=== PATIENT | female | born 1940 ===

== ENCOUNTER 2016-09-29 08:19 | Day surgery (SDC) | payer MEDICARE, OTHER ==
[2016-09-22 09:27] VITALS: BMI 32.7
[2016-09-22 12:06] VITALS: RESP 18
[2016-09-29] MEDS ORDERED: Acetylcholine 1% Opth System Pack IO ONE ×2 (08:24→11:49)
[2016-09-29] MEDS ORDERED: Lidocaine 1% 20 MG/2 ML PF AMP ONE (08:25)
[2016-09-29] MEDS ORDERED: EPINEPHrine 1 mg/ml (1:1000) Inj ONE (08:25)
[2016-09-29] MEDS ORDERED: Chondroitin/Hyaluronate Opth Syringe KIT (0.55 ml-0.5 ml) IO ONE ×2 (08:26→11:45)
[2016-09-29] MEDS ORDERED: Povidone Iodine 5% Opht SOLUTION ONE (08:26)
[2016-09-29] MEDS ORDERED: Flurbiprofen 0.3% Opht SOLN OD SCH (09:00)
[2016-09-29] MEDS ORDERED: Phenylephrine 2.5% Opht Soln OD ONE (09:00)
[2016-09-29] MEDS ORDERED: Tropicamide 1% Opht 150 DROP/15 ML RIGHTEYE SCH (09:00)
[2016-09-29] MEDS ORDERED: Lactated Ringer's 1,000 ML IV ONE (09:18)
[2016-09-29] MEDS ORDERED: Flurbiprofen 0.3% Opht SOLN OU ONE (09:18)
[2016-09-29] MEDS ORDERED: Tropicamide 1% Opht 150 DROP/15 ML RIGHTEYE ONE (09:20)
[2016-09-29] MEDS ORDERED: Midazolam 2 MG/2 ML VIAL ONE (11:25)
[2016-09-29] MEDS ORDERED: Tetracaine 0.5% Ophth 2 ML BOTTLE OD ONE (11:39)
[2016-09-29] MEDS ORDERED: Povidone Iodine 5% Opht SOLUTION OD ONE (11:41)
[2016-09-29] MEDS ORDERED: Lidocaine 1% 20 MG/2 ML PF AMP EP ONE (11:43)
[2016-09-29] MEDS ORDERED: BSS 15 ML SOL IR ONE (11:50)
[2016-09-29] MEDS ORDERED: Pilocarpine 1% Opht Soln OD ONE (11:51)
[2016-09-29] MEDS ORDERED: Maxitrol Opht Susp OD ONE (11:53)
[2016-09-29 13:25] VITALS: BP 144/68; PULSE 78; TEMP 97.4; O2SAT 97
--- NOTE | 2016-10-09 09:02 | OP ---
SURGEON: TIANA HAMMOND MD ANESTHESIOLOGIST: BINH JC MD ANESTHETIC: LOCAL / IV SEDATION PREOPERATIVE DIAGNOSIS: CATARACT RIGHT EYE. POSTOPERATIVE DIAGNOSIS: CATARACT RIGHT EYE. OPERATION: CLEAR CORNEAL PHACOEMULSIFICATION WITH LENS IMPLANT RIGHT EYE. PREPARATION AND PROCEDURE: After the patient was prepped and draped in the usual manner for sterile ophthalmic surgery, local IV sedation was administered ; eye seals were applied to the upper and lower lid margins and an adult wire lid speculum was placed within the lids. Under microsurgical control, a two- step clear corneal incision was made into the anterior chamber. The initial incision was perpendicular to the corneal plane. The second incision with the keratome was placed at a 45-degree angle to the first incision. One cc of one percent Xylocaine MPF was instilled into the anterior chamber to achieve proper intraocular anesthesia. At this time, the Viscoelastic was injected into the anterior chamber for protection of the endothelium and for maintenance of the chamber depth. A 360-degree continuous curvilinear capsulorrhexis was performed using a pre-bent 25-gauge needle. Hydrodissection and hydrodelineation were performed using a Schmidt cannula and balanced salt solution. Utilizing the tip of the Schmidt cannula, the nucleus was rotated freely within the capsular bag. A standard one-handed phacoemulsification was utilized at this time for sculpting and rotating of the nucleus. The nucleus was fragmented in its entirety and aspirated without any consequence. A standard I&A was carried out for the residual cortical material. No residual material was noted within the capsular bag. The posterior capsule was noted to be clear. Additional Viscoelastic was injected into the capsular bag in preparation for lens implantation. After this has been satisfactorily achieved the intraocular lens injected through the corneal incision into the capsular bag. The intraocular lens was manipulated until it was properly oriented and the Viscoelastic was evacuated from the capsular bag and anterior chamber. The anterior chamber was reformed with balanced salt solution. The corneal incision was irrigated with BSS. The intraocular pressure was found to be within normal limits. This terminated the procedure. The speculum and lid drapes were removed.TobraDex ophthalmic suspension and Pilocarpine 1% drops one drop was applied to the eye. POSTOPERATIVE CONDITION: The patient was brought to the Postanesthesia Recovery area with stable vital signs. DTIANA GARZA MDD
== END 2016-09-29 13:45 | disposition home or self-care (01) ==
LOC: H.OPSURG 08:19
PROVIDERS: ATTEND Ophthalmology
DX: H25.811 Combined forms of age-related cataract, right eye (principal); E78.5 Hyperlipidemia, unspecified; I10 Essential (primary) hypertension; F32.9 Major depressive disorder, single episode, unspecified; R42 Dizziness and giddiness; M81.0 Age-related osteoporosis without current pathological fracture
CPT/HCPCS: 66984; J0171; J2250; J3010; J7120; V2632

== ENCOUNTER 2016-10-20 07:42 | Day surgery (SDC) | payer MEDICARE, OTHER ==
[2016-09-22 09:27] VITALS: BMI 32.7
[2016-10-20] MEDS ORDERED: Acetylcholine 1% Opth System Pack IO ONE ×2 (08:02→12:18)
[2016-10-20] MEDS ORDERED: Lidocaine 1% 20 MG/2 ML PF AMP ONE (08:05)
[2016-10-20] MEDS ORDERED: EPINEPHrine 1 mg/ml (1:1000) Inj ONE (08:05)
[2016-10-20] MEDS ORDERED: Chondroitin/Hyaluronate Opth Syringe KIT (0.55 ml-0.5 ml) IO ONE ×2 (08:07→12:16)
[2016-10-20 08:09] VITALS: RESP 18
[2016-10-20] MEDS ORDERED: Povidone Iodine 5% Opht SOLUTION ONE (08:12)
[2016-10-20] MEDS ORDERED: Phenylephrine 2.5% Opht Soln OS SCH (08:45)
[2016-10-20] MEDS ORDERED: Flurbiprofen 0.3% Opht SOLN OS SCH (08:45)
[2016-10-20] MEDS ORDERED: Tropicamide 1% Opht 150 DROP/15 ML OS SCH (08:45)
[2016-10-20] MEDS ORDERED: ePHEDrine 50 mg/ml Inj ONE (09:21)
[2016-10-20] MEDS ORDERED: Atropine 0.4 mg/ml Inj (1 mL) ONE (09:21)
[2016-10-20] MEDS ORDERED: Midazolam 2 MG/2 ML VIAL ONE ×2 (09:21→11:33)
[2016-10-20] MEDS ORDERED: Flurbiprofen 0.3% Opht SOLN OS ONE (10:00)
[2016-10-20] MEDS ORDERED: Tropicamide 1% Opht 150 DROP/15 ML OS ONE (10:00)
[2016-10-20] MEDS ORDERED: Phenylephrine 2.5% Opht Soln OS ONE (10:00)
[2016-10-20] MEDS ORDERED: BETAXOLOL HCL 0.5% OU ONE (11:55)
[2016-10-20] MEDS ORDERED: Lactated Ringer's 1,000 ML IV ONE (11:55)
[2016-10-20] MEDS ORDERED: Maxitrol Opht Susp OU ONE (12:16)
[2016-10-20] MEDS ORDERED: Pilocarpine 1% Opht Soln OU ONE (12:18)
[2016-10-20 13:23] VITALS: O2SAT 99
[2016-10-20 13:55] VITALS: BP 142/67; PULSE 72; TEMP 98.1
--- NOTE | 2016-10-21 11:06 | OP ---
DATE: 10/20/2016 SURGEON: TIANA HAMMOND MD ANESTHESIOLOGIST: GLORIA MATUTE MD ANESTHETIC: DEEP SEDATION PREOPERATIVE DIAGNOSIS: CATARACT LEFT EYE. POSTOPERATIVE DIAGNOSIS: CATARACT LEFT EYE. OPERATION: CLEAR CORNEAL PHACOEMULSIFICATION WITH LENS IMPLANT LEFT EYE. PREPARATION AND PROCEDURE: After the patient was prepped and draped in the usual manner for sterile ophthalmic surgery, local IV sedation was administered ; eye seals were applied to the upper and lower lid margins and an adult wire lid speculum was placed within the lids. Under microsurgical control, a two- step clear corneal incision was made into the anterior chamber. The initial incision was perpendicular to the corneal plane. The second incision with the keratome was placed at a 45-degree angle to the first incision. One cc of one percent Xylocaine MPF was instilled into the anterior chamber to achieve proper intraocular anesthesia. At this time, the Viscoelastic was injected into the anterior chamber for protection of the endothelium and for maintenance of the chamber depth. A 360-degree continuous curvilinear capsulorrhexis was performed using a pre-bent 25-gauge needle. Hydrodissection and hydrodelineation were performed using a Schmidt cannula and balanced salt solution. Utilizing the tip of the Schmidt cannula, the nucleus was rotated freely within the capsular bag. A standard one-handed phacoemulsification was utilized at this time for sculpting and rotating of the nucleus. The nucleus was fragmented in its entirety and aspirated without any consequence. A standard I&A was carried out for the residual cortical material. No residual material was noted within the capsular bag. The posterior capsule was noted to be clear. Additional Viscoelastic was injected into the capsular bag in preparation for lens implantation. After this has been satisfactorily achieved the intraocular lens injected through the corneal incision into the capsular bag. The intraocular lens was manipulated until it was properly oriented and the Viscoelastic was evacuated from the capsular bag and anterior chamber. The anterior chamber was reformed with balanced salt solution. The corneal incision was irrigated with BSS. The intraocular pressure was found to be within normal limits. This terminated the procedure. The speculum and lid drapes were removed. TobraDex ophthalmic suspension and Pilocarpine 1% drops one drop was applied to the eye. POSTOPERATIVE CONDITION: The patient was brought to the Postanesthesia Recovery area with stable vital signs. TIANA ZHAO
== END 2016-10-20 14:00 | disposition home or self-care (01) ==
LOC: H.OPSURG 07:42
PROVIDERS: ATTEND Ophthalmology
DX: H25.812 Combined forms of age-related cataract, left eye (principal); I10 Essential (primary) hypertension; I35.0 Nonrheumatic aortic (valve) stenosis
CPT/HCPCS: 66984; J0171; J0461; J2250; J3010; J7120; V2632

== ENCOUNTER 2016-10-30 09:11 | Emergency (ER) | payer MEDICARE, OTHER ==
[2016-10-30 09:15] VITALS: TEMP 98.9; BMI 31.6
--- NOTE | 2016-10-30 09:42 | ED PDOC ---
HPI: Head Injury Time Seen by Provider: 10/30/16 09:16 Chief Complaint (Nursing): Trauma Chief Complaint (Provider): I fell on way to [employer] History Per: Patient, Family History/Exam Limitations: no limitations Injury Occurred (Timing): Hours Ago: (<1) Onset/Duration Of Symptoms: Sudden Onset Patient States: Fell Striking Head Severity: Moderate Loss Of Consciousness: Unsure Additional Complaint(s): 75yo female states tripped and fell on way to [employer] this morning. Fertile dazed after, unsure if LOC. Denies focal weakness, neck pain or nausea. Denies hip or back pain. Has chronic Left knee pain, no new pain. Takes ASA 81mg daily, no other blood thinners per pt or daughter. Past Medical History Reviewed: Historical Data, Nursing Documentation, Vital Signs Vital Signs: Last Vital Signs Temp 98.9 F 10/30/16 09:14 Pulse 77 10/30/16 09:14 Resp 19 10/30/16 09:14 BP 146/93 H 10/30/16 09:14 Pulse Ox 96 10/30/16 09:14 - Medical History PMH: Arthritis, Dementia, Depression, Gastritis, HTN, Hypercholesterolemia, Osteoporosis Denies: Chronic Kidney Disease - Surgical History Surgical History: Cholecystectomy - Family History Family History: States: Unknown Family Hx - Living Arrangements Living Arrangements: Alone (homemaker) - Social History Current smoker - smoking cessation education provided: No - Home Medications Home Medications: Ambulatory Orders Medication Instructions Recorded Calcium Carbonate [Caltrate] 600 mg PO DAILY 09/18/15 Docusate [Colace] 100 mg PO DAILY 09/18/15 Ferrous Sulfate [Ferosul] 325 mg PO DAILY 09/18/15 Lisinopril [Zestril] 20 mg PO DAILY 09/18/15 Memantine HCl [Namenda Xr] 1 cap PO DAILY 09/18/15 Multivitamin/Iron/Folic Acid 1 tab PO DAILY 09/18/15 [Centrum Complete Multivit Tab] NIFEdipine ER [Procardia XL] 90 mg PO DAILY 09/18/15 Omeprazole [Prilosec] 20 mg PO DAILY 09/18/15 Zolpidem Tartrate [Ambien] 5 mg PO HS 09/18/15 Ondansetron ODT [Zofran ODT] 4 mg PO Q8 PRN #12 odt 10/06/15 Aspirin [Ecotrin] 81 mg PO DAILY 11/21/15 Oxycodone HCl/Acetaminophen 5 - 325 mg PO Q4 PRN 11/21/15 [Percocet 5-325 mg Tablet] Meclizine [Meclizine*] 25 mg PO Q6 PRN #20 tab 12/01/15 Alendronate [Fosamax] 70 mg PO ONCE 09/29/16 Citalopram Hydrobromide [Celexa] 20 mg PO DAILY 09/29/16 Loratadine [Allerclear] 10 mg PO DAILY 09/29/16 Potassium Chloride [K-Dur 20 mEq 20 meq PO DAILY 09/29/16 ER Tab] traMADol [Ultram] 50 mg PO TID PRN #12 tab 10/30/16 - Allergies Allergies/Adverse Reactions: Allergies Allergy/AdvReac Type Severity Reaction Status Date / Time No Known Allergies Allergy Verified 11/08/15 10:12 Review of Systems ROS Statement: Except As Marked, All Systems Reviewed And Found Negative Constitutional: Negative for: Fever, Chills Cardiovascular: Positive for: Light Headedness. Negative for: Chest Pain, Palpitations Respiratory: Negative for: Cough, Shortness of Breath Gastrointestinal: Negative for: Nausea, Vomiting Genitourinary Female: Negative for: Dysuria, Frequency Musculoskeletal: Negative for: Neck Pain Skin: Negative for: Rash, Lesions, Jaundice Neurological: Positive for: Dizziness. Negative for: Weakness, Numbness Physical Exam - Reviewed Nursing Documentation Reviewed: Yes Vital Signs Reviewed: Yes - Physical Exam Appears: Positive for: Well, Non-toxic, No Acute Distress Head Exam: Positive for: ATRAUMATIC, NORMAL INSPECTION, NORMOCEPHALIC Skin: Positive for: Normal Color, Warm, DRY Eye Exam: Positive for: EOMI, Normal appearance, PERRL ENT: Positive for: Other (L facial contusion periorbital, no lacerations, + tender maxilofacial left) Neck: Positive for: Normal, Painless ROM Cardiovascular/Chest: Positive for: Regular Rate, Rhythm Respiratory: Positive for: CNT, Normal Breath Sounds Gastrointestinal/Abdominal: Positive for: Normal Exam, Bowel Sounds, Soft Back: Positive for: Normal Inspection Extremity: Positive for: Normal ROM Neurologic/Psych: Positive for: Alert, Oriented - ECG O2 Sat by Pulse Oximetry: 96 Medical Decision Making Medical Decision Making: Workup initiated for fall with head and facial injury. She is ambulating in ED and no signs hip or pelvis trauma. Accession No. : [id number] Patient Name / ID : WINSOME ROBLES / [id number] Exam Date : 10/30/2016 09:59:01 ( Approved ) Study Comment : Sex / Age : F / 75Y Creator : Hernesto Nayak Dictator : Hernesto Nayak Movie Editor : Environmental Program Manager : Hernesto Nayak Approver2 : Report Date : 10/30/2016 10:29:01 My Comment : PROCEDURE: CT ORBITS WITHOUT CONTRAST. HISTORY: fall/ facial/ orbital trauma COMPARISON: None available. TECHNIQUE: Axial CT images of the orbits were obtained. Coronal and sagittal reformats were generated. Radiation dose: Total exam DLP = 723.78 mGy-cm. This CT exam was performed using one or more of the following dose reduction techniques: Automated exposure control, adjustment of the mA and/or kV according to patient size, and/or use of iterative reconstruction technique. FINDINGS: RIGHT ORBIT: RIGHT BONY ORBIT: Normal. RIGHT INTRAORBITAL STRUCTURES: Globe: Normal. Extraocular muscles: Normal. Post septal space: Normal. Optic Nerve: Normal. Lacrimal Apparatus: Normal. RIGHT PRESEPTAL SOFT TISSUES: Normal. LEFT ORBIT: LEFT BONY ORBIT: There is acute mildly displaced fracture at the lateral wall of the left orbit LEFT INTRAORBITAL STRUCTURES: Globe: Normal. Extraocular muscles: Normal. Post septal space: Normal Optic Nerve: Normal. . Lacrimal Apparatus: Normal. LEFT PRESEPTAL SOFT TISSUES: Mild preseptal soft tissue swelling seen. OTHER: There is acute mildly displaced fracture at the lateral wall of the left maxillary sinus associated with small bleed in the sinus and air-fluid level. There is acute displaced fracture at the left zygomatic arch. Subcutaneous stranding and soft tissue swelling seen at the left cheek. IMPRESSION: Acute mildly displaced fracture at the lateral wall of the left orbit. No evidence of intra orbital air or hematoma. Acute mildly displaced fracture at the lateral wall of the left maxillary sinus associated with air-fluid level likely due to small hemorrhage. Acute displaced fracture at the left zygomatic arch. Mild soft tissue swelling and subcutaneous stranding seen at the left cheek / anterior to maxillary sinus. Mild left periorbital soft tissue swelling. Discussed w Dr Martinez FS office, will see her early in week, CD disc of images given to bring to [facility]. Instructed may need surgery. Results d/w daughter also. Pain medicine given. Disposition - Clinical Impression Clinical Impression: Multiple facial fractures, Head injury - Disposition Referrals: Tamiko Martinez DMD [Staff Provider] - Disposition Time: 12:30 Condition: STABLE Additional Instructions: See OMFS specialist in next 2-4 days for followup. You may need surgery for this injury. Take medication for pain as directed. Use caution for risk of subsequent falls. Return to ER for any worse or new symptoms, pain, change in vision, or any concern. Prescriptions: traMADol [Ultram] 50 mg PO TID PRN #12 tab PRN Reason: Pain, Moderate (4-7) Instructions: Facial Fracture (ED), Head Injury (ED) Forms: [employer] (Ukrainian) Print Language: CZECH
--- NOTE | 2016-10-30 10:18 | CT ---
PROCEDURE: CT HEAD WITHOUT CONTRAST. HISTORY: r/o ICH COMPARISON: Comparison is made to the previous study dated 12/01/2015 TECHNIQUE: Axial computed tomography images were obtained through the head/brain without intravenous contrast. Radiation dose: Total exam DLP = 782.25 mGy-cm. This CT exam was performed using one or more of the following dose reduction techniques: Automated exposure control, adjustment of the mA and/or kV according to patient size, and/or use of iterative reconstruction technique. FINDINGS: HEMORRHAGE: No intracranial hemorrhage. BRAIN: No mass effect or edema. No atrophy or chronic microvascular ischemic changes. VENTRICLES: Unremarkable. No hydrocephalus. CALVARIUM: Unremarkable. PARANASAL SINUSES: Partially visualized left maxillary sinus demonstrate air-fluid level. There is acute mildly displaced fracture at the lateral wall of the left maxillary sinus. There is also suspicious for fracture at the lateral wall of the left orbit. MASTOID AIR CELLS: Unremarkable as visualized. No inflammatory changes. OTHER FINDINGS: Partially imaged low left zygomatic arch demonstrate acute displaced fracture. IMPRESSION: No evidence of acute intracranial hemorrhage intracranial collection mass effect or midline shift. Acute fracture at the left maxillary sinus lateral wall of the left orbit and left zygomatic arch partially imaged in this study.
--- NOTE | 2016-10-30 10:30 | CT ---
PROCEDURE: CT ORBITS WITHOUT CONTRAST. HISTORY: fall/ facial/ orbital trauma COMPARISON: None available. TECHNIQUE: Axial CT images of the orbits were obtained. Coronal and sagittal reformats were generated. Radiation dose: Total exam DLP = 723.78 mGy-cm. This CT exam was performed using one or more of the following dose reduction techniques: Automated exposure control, adjustment of the mA and/or kV according to patient size, and/or use of iterative reconstruction technique. FINDINGS: RIGHT ORBIT: RIGHT BONY ORBIT: Normal. RIGHT INTRAORBITAL STRUCTURES: Globe: Normal. Extraocular muscles: Normal. Post septal space: Normal. Optic Nerve: Normal. Lacrimal Apparatus: Normal. RIGHT PRESEPTAL SOFT TISSUES: Normal. LEFT ORBIT: LEFT BONY ORBIT: There is acute mildly displaced fracture at the lateral wall of the left orbit LEFT INTRAORBITAL STRUCTURES: Globe: Normal. Extraocular muscles: Normal. Post septal space: Normal Optic Nerve: Normal. . Lacrimal Apparatus: Normal. LEFT PRESEPTAL SOFT TISSUES: Mild preseptal soft tissue swelling seen. OTHER: There is acute mildly displaced fracture at the lateral wall of the left maxillary sinus associated with small bleed in the sinus and air-fluid level. There is acute displaced fracture at the left zygomatic arch. Subcutaneous stranding and soft tissue swelling seen at the left cheek. IMPRESSION: Acute mildly displaced fracture at the lateral wall of the left orbit. No evidence of intra orbital air or hematoma. Acute mildly displaced fracture at the lateral wall of the left maxillary sinus associated with air-fluid level likely due to small hemorrhage. Acute displaced fracture at the left zygomatic arch. Mild soft tissue swelling and subcutaneous stranding seen at the left cheek / anterior to maxillary sinus. Mild left periorbital soft tissue swelling.
--- NOTE | 2016-10-30 10:39 | CT ---
PROCEDURE: CT Cervical Spine without contrast HISTORY: <trauma r/o fx> COMPARISON: None available. TECHNIQUE: Axial computed tomography images were obtained of the cervical spine without the use of intravenous contrast. Coronal and sagittal reformatted images were created and reviewed. Radiation dose: Total exam DLP = 583.85 mGy-cm. This CT exam was performed using one or more of the following dose reduction techniques: Automated exposure control, adjustment of the mA and/or kV according to patient size, and/or use of iterative reconstruction technique. FINDINGS: VERTEBRAE: No fracture. Normal alignment. No destructive bony lesion. DISCS/SPINAL CANAL/NEURAL FORAMINA: [id number] spondylosis seen. Mild narrowing of the intervertebral disc is space at lower cervical spine P PARASPINAL SOFT TISSUES: Unremarkable. OTHER FINDINGS: None. IMPRESSION: No evidence of acute fracture or subluxation. [id number] spondylosis.
--- NOTE | 2016-10-30 12:03 | CARD ---
APPROVED REPORT EKG Measurement Heart [id number] <Conclusion> Normal sinus rhythm Normal ECG
[2016-10-30 14:42] VITALS: BP 136/82; PULSE 81; RESP 16; O2SAT 100
== END 2016-10-30 14:40 | disposition home or self-care (01) ==
LOC: H.ER 09:11
DX: S02.81XA Fracture of other specified skull and facial bones, right side, initial encounter for closed fracture (principal); S09.90XA Unspecified injury of head, initial encounter; W19.XXXA Unspecified fall, initial encounter; Y92.480 Sidewalk as the place of occurrence of the external cause; F03.90 Unspecified dementia, unspecified severity, without behavioral disturbance, psychotic disturbance, mood disturbance, and anxiety

== ENCOUNTER 2017-01-17 22:46 | Inpatient (IN) | payer MEDICARE, OTHER ==
[2017-01-17 22:46] VITALS: BMI 31.6
--- NOTE | 2017-01-18 00:01 | ED PDOC ---
HPI: General Adult Time Seen by Provider: 01/17/17 23:16 Chief Complaint (Nursing): Dizziness/Lightheaded History Per: Patient, Family (daughter) Additional Complaint(s): Pt. states earlier today at approximately 2240 pt. was standing up cooking when she suddenly felt dizzy causing her to fall down in a sitting position. Pt. states as she fell down she struck the L side of her head onto a wooden shelf. Pt. states she did not lose consciousness. Daughter brought her into ED as she is concerned as this is pt.'s 3rd fall in the past 3 months. Also states that pt. does have a hx of dizziness and does take medications for it. Denies LOC, N/ V, numbness, tingling, hip pain, pelvic pain, chest pain, palpitations, other injury. Past Medical History Reviewed: Historical Data, Nursing Documentation, Vital Signs Vital Signs: Last Vital Signs Temp 98.0 F 01/17/17 22:49 Pulse 61 01/18/17 01:51 Resp 20 01/17/17 22:49 BP 144/82 01/17/17 22:49 Pulse Ox 99 01/18/17 01:51 - Medical History PMH: Anxiety, Arthritis, Dementia, Depression, Gastritis, HTN, Hypercholesterolemia, Osteoporosis, Rheumatoid Arthritis Denies: Chronic Kidney Disease - Surgical History Surgical History: Cholecystectomy - Family History Family History: States: No Known Family Hx - Home Medications Home Medications: Ambulatory Orders Medication Instructions Recorded Calcium Carbonate [Caltrate] 600 mg PO DAILY 09/18/15 Docusate [Colace] 100 mg PO DAILY 09/18/15 Ferrous Sulfate [Ferosul] 325 mg PO DAILY 09/18/15 Lisinopril [Zestril] 20 mg PO DAILY 09/18/15 Memantine HCl [Namenda Xr] 1 cap PO DAILY 09/18/15 Multivitamin/Iron/Folic Acid 1 tab PO DAILY 09/18/15 [Centrum Complete Multivit Tab] NIFEdipine ER [Procardia XL] 90 mg PO DAILY 09/18/15 Omeprazole [Prilosec] 20 mg PO DAILY 09/18/15 Zolpidem Tartrate [Ambien] 5 mg PO HS 09/18/15 Ondansetron ODT [Zofran ODT] 4 mg PO Q8 PRN #12 odt 10/06/15 Aspirin [Ecotrin] 81 mg PO DAILY 11/21/15 Oxycodone HCl/Acetaminophen 5 - 325 mg PO Q4 PRN 11/21/15 [Percocet 5-325 mg Tablet] Meclizine [Meclizine*] 25 mg PO Q6 PRN #20 tab 12/01/15 Alendronate [Fosamax] 70 mg PO ONCE 09/29/16 Citalopram Hydrobromide [Celexa] 20 mg PO DAILY 09/29/16 Loratadine [Allerclear] 10 mg PO DAILY 09/29/16 Potassium Chloride [K-Dur 20 mEq 20 meq PO DAILY 09/29/16 ER Tab] traMADol [Ultram] 50 mg PO TID PRN #12 tab 10/30/16 - Allergies Allergies/Adverse Reactions: Allergies Allergy/AdvReac Type Severity Reaction Status Date / Time No Known Allergies Allergy Verified 11/08/15 10:12 Review of Systems ROS Statement: Except As Marked, All Systems Reviewed And Found Negative Musculoskeletal: Positive for: Back Pain Neurological: Positive for: Dizziness Physical Exam - Reviewed Nursing Documentation Reviewed: Yes Vital Signs Reviewed: Yes - Physical Exam Appears: Positive for: Well, Non-toxic, No Acute Distress Head Exam: Positive for: NORMAL INSPECTION, NORMOCEPHALIC. Negative for: ATRAUMATIC Skin: Positive for: Normal Color, Warm. Negative for: Rash Eye Exam: Positive for: EOMI, Normal appearance, PERRL ENT: Positive for: Normal ENT Inspection, TM Is/Are (no hemotympanum b/l) Neck: Positive for: Normal, Painless ROM Cardiovascular/Chest: Positive for: Regular Rate, Rhythm Respiratory: Positive for: CNT, Normal Breath Sounds Gastrointestinal/Abdominal: Positive for: Normal Exam, Bowel Sounds, Soft. Negative for: Tenderness Back: Positive for: Normal Inspection, Muscle Spasm (b/l paralumbar tenderness) . Negative for: L CVA Tenderness, R CVA Tenderness, Vertebral Tenderness Extremity: Positive for: Normal ROM, Other (no hip/pelvic tenderness or deformity) Neurologic/Psych: Positive for: Alert, Oriented, Gait (steady). Negative for: Aphasia, Facial Droop - Laboratory Results Result Diagrams: 01/18/17 01:01 01/18/17 01:01 - ECG ECG: Positive for: Interpreted By Me ECG Rhythm: Positive for: Sinus Rhythm. Negative for: ST/T Changes Rate: 61 O2 Sat by Pulse Oximetry: 99 - Progress ED Course And Treament: Labs ordered. EKG ordered. Antivert 50mg PO ordered. Case d/w Dr. Regna who recommends that pt. stay for 23 hr observation due to frequent falls. CT head w/o contrast: negatve. Case d/w Dr. Scruggs and arrangements made for 23 hr observation. Medical Decision Making Medical Decision Making: CT HEAD FINDINGS Brain: Mild atrophy. No intracranial hemorrhage. No mass. Minimal decreased attenuation within periventricular white matter. No edema. Ventricles: No hydrocephalus. Bones/joints: No acute fracture. Chronic fracture LEFT zygoma, lateral wall of LEFT orbit, lateral wall of LEFT maxillary sinus. Soft tissues: Unremarkable. Sinuses: No acute sinusitis. Mastoid air cells: No mastoid effusion. Orbits: Unremarkable as visualized. IMPRESSION: 1. No intracranial hemorrhage. 2. Nonspecific white matter changes. 3. Incidental/non-acute findings are described above. Scribe Attestation: Documented by Vesta Huerta acting as a scribe for Evens Dinh PA-C. MD Scribe Attestation: All medical record entries made by the Scribe were at my direction and personally dictated by me. I have reviewed the chart and agree that the record accurately reflects my personal performance of the history, physical exam, medical decision making, and the department course for this patient. I have also personally directed, reviewed, and agree with the discharge instructions and disposition. Disposition - Clinical Impression Clinical Impression: Dizziness, Frequent falls - Patient ED Disposition Is Patient to be Admitted: Yes - Disposition Disposition Time: 01:51 Condition: STABLE - Pt Status Changed To: Hospital Disposition Of: Observation
[2017-01-18 01:10] LABS: BASO % 0.5 % (0.0-2.0); EOS # 0.3 K/uL (0.0-0.7); EOS % 3.2 % (0.0-4.0); HEMATOCRIT 38.5 % (34.0-47.0); LYMPH % 33.6 % (20.0-40.0); MEAN CELL VOLUME 86.7 fl (81.0-99.0); MEAN CORPUSCULAR HEMOGLOBIN 28.1 pg (27.0-31.0); MEAN CORPUSCULAR HGB CONC 32.4 g/dL (33.0-37.0); MEAN PLATELET VOLUME 8.7 fl (7.2-11.7); MONO # 0.8 K/uL (0.0-0.8); MONO % 8.6 % (0.0-10.0); NEUT # 4.8 K/uL (1.8-7.0); NEUT % 54.1 % (50.0-75.0); RED CELL DISTRIBUTION WIDTH 14.8 % (11.5-14.5); WHITE BLOOD COUNT 8.9 K/uL (4.8-10.8)
[2017-01-18 01:22] LABS: ALB/GLOB RATIO 1.3 (1.0-2.1); ALKALINE PHOSPHATASE 110 U/L (38-126); ALT/SGPT 37 U/L (9-52); AST/SGOT 27 U/L (14-36); BILIRUBIN,TOTAL 0.4 mg/dl (0.2-1.3); BLOOD UREA NITROGEN 15 mg/dl (7-17); CALCIUM 9.5 mg/dL (8.4-10.2); CARBON DIOXIDE 25 mmol/L (22-30); CHLORIDE 105 mmol/L (98-107); GFR AFRICAN-AMERICAN > 60; GLUCOSE,RANDOM 94 mg/dL (65-105); POTASSIUM 3.8 MMOL/L (3.6-5.0); SODIUM 141 mmol/l (132-148); TOTAL PROTEIN 7.1 G/DL (6.3-8.2)
--- NOTE | 2017-01-18 01:23 | CT ---
EXAM: CT Head Without Intravenous Contrast CLINICAL HISTORY: 76 years old, female; Injury or trauma; Fall; Initial encounter; Concussion / head injury; Without loss of consciousness; Injury date: 01/17/2017 TECHNIQUE: Axial computed tomography images of the head/brain without intravenous contrast. All CT scans at this facility use one or more dose reduction techniques, viz.: automated exposure control; ma/kV adjustment per patient size (including targeted exams where dose is matched to indication; i.e. head); or iterative reconstruction technique. Coronal and sagittal reformatted images were created and reviewed. COMPARISON: CT - HEAD W/O CONTRAST 08/31/2015 10:01:47 PM FINDINGS: Brain: Mild atrophy. No intracranial hemorrhage. No mass. Minimal decreased attenuation within periventricular white matter. No edema. Ventricles: No hydrocephalus. Bones/joints: No acute fracture. Chronic fracture LEFT zygoma, lateral wall of LEFT orbit, lateral wall of LEFT maxillary sinus. Soft tissues: Unremarkable. Sinuses: No acute sinusitis. Mastoid air cells: No mastoid effusion. Orbits: Unremarkable as visualized. IMPRESSION: 1. No intracranial hemorrhage. 2. Nonspecific white matter changes. 3. Incidental/non-acute findings are described above.
[2017-01-18] MEDS ORDERED: cefTRIAXone (Rocephin) 1 gm Inj ONE (04:02)
--- NOTE | 2017-01-18 04:10 | CP.PCM.HP ---
History of Present Illness - History of Present Illness History of Present Illness: CC: dizziness HPI: 76 y/o woman w/ pmh of HTN, vertigo, chronic gastritis, depression, dementia (not specified, not on medications), aortic stenosis (last echo 07/2014 ) presents to ED for dizziness and fall. The patient was at home when she became dizzy and fell on her rear end and then the back of her head. The grandson witnessed fall which occurred at 20:45. The patient reports that the only preceding symptom before fall was dizziness, patient denied headache, chest pain, SOB, abdominal pain, or nausea. The daughter is at bedside and reports that this is the 4th fall in the past 6 months. The first occurred in similar fashion but patient did not go to ED. The second occurred which resulted in a left maxillary and left orbital mildly displaced fractures. The third occurred in 11/2016 and the patient did not go to ED as well. The patient does complain of tinnitus and ambulates with a cane. The patient has a home health aide that comes Wednesday-Wednesday for 2.5 hours daily. The patient is tolerating PO and has no other complaints. ROS: 12 points assessed and negative unless otherwise specified in HPI ED course: - CBC w/ diff: 8.9>12.5/38.5<178 - CMP: 141/3.8, 105/25, 15/0.8, glucose 94 - troponin I: <0.0120 - UA: - Urine CX: - EKG: NSR, no ST elevation/depression, no widened QRS, no peaked T waves, no prolonged segments - CT head w/o: no acute intracranial hemorrhage - lumbar spine XR - meclizine 50 mg PO once - ceftriaxone 1 gm IV stat PMH: HTN, depression, osteoporosis, vertigo, chronic gastritis, dementia (not specified, not on medications), aortic stenosis, iron deficiency anemia allergies: NKDA PSHx: right knee replacement 2013, lap cholecystectomy 2014, left hernia repair 2014, bilateral cataract surgery 11/2016 SOC: lives alone, has ORDER FILLER M-F for 2.5 hours/day, daughter works at [employer] but takes care of patient on weekends Present on Admission - Present on Admission Any Indicators Present on Admission: No Review of Systems - Review of Systems All systems: reviewed and no additional remarkable complaints except - Constitutional Constitutional: Frequent Falls, Weakness. absent: Fever, Headache - EENT Eyes: absent: Blurred Vision, Change in Vision Ears: Tinnitus, Dizziness. absent: Decreased Hearing - Cardiovascular Cardiovascular: absent: Chest Pain, Rapid Heart Rate - Respiratory Respiratory: absent: Dyspnea, Wheezing - Gastrointestinal Gastrointestinal: absent: Abdominal Pain, Nausea, Vomiting - Genitourinary Genitourinary: absent: Dysuria - Neurological Neurological: Memory Loss, Syncope, Vertigo, Weakness. absent: Abnormal Gait, Abnormal Hearing, Abnormal Movements, Headaches, Loss of Vision Past Patient History - Infectious Disease Hx of Infectious Diseases: None - Past Medical History & Family History Past Medical History?: Yes - Past Social History Smoking Status: Never Smoked - CARDIAC Hx Hypercholesterolemia: Yes Hx Hypertension: Yes - PULMONARY Hx Respiratory Disorders: No - NEUROLOGICAL Hx Dementia: Yes - HEENT Hx HEENT Problems: Yes Hx Cataracts: Yes (RIGHT EYE) - RENAL Hx Chronic Kidney Disease: No - ENDOCRINE/METABOLIC Hx Endocrine Disorders: No - HEMATOLOGICAL/ONCOLOGICAL Hx Blood Disorders: No Hx Blood Transfusions: No - INTEGUMENTARY Hx Dermatological Problems: No - MUSCULOSKELETAL/RHEUMATOLOGICAL Hx Arthritis: Yes Hx Osteoporosis: Yes Hx Rheumatoid Arthritis: Yes - GASTROINTESTINAL Hx Gastritis: Yes - GENITOURINARY/GYNECOLOGICAL Hx Genitourinary Disorders: No - PSYCHIATRIC Hx Anxiety: Yes Hx Depression: Yes - SURGICAL HISTORY Hx Cholecystectomy: Yes - ANESTHESIA Hx Anesthesia: Yes Hx Anesthesia Reactions: No Hx Malignant Hyperthermia: No Meds Allergies/Adverse Reactions: Allergies Allergy/AdvReac Type Severity Reaction Status Date / Time No Known Allergies Allergy Verified 11/08/15 10:12 Physical Exam - Constitutional Appears: No Acute Distress - Head Exam Head Exam: NORMOCEPHALIC - Eye Exam Eye Exam: EOMI, PERRL Pupil Exam: NORMAL ACCOMODATION, PERRL - ENT Exam ENT Exam: Mucous Membranes Moist - Neck Exam Neck exam: Positive for: Full Rom, Normal Inspection. Negative for: Tenderness - Respiratory Exam Respiratory Exam: Clear to Auscultation Bilateral, NORMAL BREATHING PATTERN. absent: Decreased Breath Sounds, Wheezes, Respiratory Distress, Stridor - Cardiovascular Exam Cardiovascular Exam: REGULAR RHYTHM, Systolic Murmur. absent: Bradycardia, Tachycardia - GI/Abdominal Exam GI & Abdominal Exam: Normal Bowel Sounds, Soft. absent: Distended, Tenderness - Extremities Exam Extremities exam: Negative for: calf tenderness, tenderness - Back Exam Back exam: absent: paraspinal tenderness, vertebral tenderness - Neurological Exam Neurological exam: Alert, CN II-XII Intact, Oriented x3 Additional comments: trinity-halpike negative - Skin Skin Exam: Dry, Intact, Warm Results - Vital Signs Recent Vital Signs: Last Vital Signs Temp 97.8 F 01/18/17 03:38 Pulse 65 01/18/17 03:38 Resp 15 01/18/17 03:38 BP 136/77 01/18/17 03:38 Pulse Ox 100 01/18/17 03:38 - Labs Result Diagrams: 01/18/17 01:01 01/18/17 01:01 Assessment & Plan - Assessment and Plan (Free Text) Assessment: 76 y/o woman w/ pmh of HTN, vertigo, chronic gastritis, depression, dementia ( not specified, not on medications), aortic stenosis (last echo 07/2014) presents to ED for dizziness and fall Plan: 1. syncope w/ fall - admit to TELE - patient reported lightheadedness prior to fall - patient has multiple fall history - given meclizine 50 mg in ED - CBC, CMP, EKG, head CT all WNL - results pending for LS XR - follow up repeat CBC, CMP, folate, vit B12, vit D 25 OH, TSH, x2 troponin, EKG - follow up echo - follow up carotid U/S - orthostatic BP ordered - neuro check Q4 ordered - wax specialist ordered - IV saline lock ordered - PT screen, eval, treat ordered - consider cardiology consult - consider neurology consult 2. UTI - Patient found to have UTI in ED - follow up urine Cx - started on ceftriaxone 1 gm IV 3. HTN - controlled w/ lisinopril 20 mg and nifedipine 90 mg - given lisinopril 20 mg PO - heart healthy diet ordered 4. Depression - controlled w/ citalopram 20 mg 5. Iron deficiency anemia - feosol 325 mg PO daily - colace 100 mg PO stool softener 6. GERD - on omeprazole 20 mg PO - given protonix 20 mg PO 7. Hypokalemia - no EKG changes - on K-dur 20 mEq daily 8. Prophylaxis - ASA 81 mg PO - lovenox 20 mg SC daily Decision To Admit - Pt Status Changed To: Hospital Disposition Of: Observation - . Bed Request Type: Telemetry Admitting Physician: Katheryn Aly
[2017-01-18 05:49] LABS: RBC URINE 4 /hpf (0-3); URINE BACTERIA RARE (<OCC); URINE BILIRUBIN NEGATIVE (NEGATIVE); URINE BLOOD MODERATE (NEGATIVE); URINE COLOR AMBER (YELLOW); URINE GLUCOSE (UA) NEG (Normal); URINE KETONE NEGATIVE (NEGATIVE); URINE LEUKOCYTE ESTERASE TRACE Leu/uL (Negative); URINE PROTEIN 30 mg/dL (NEGATIVE); URINE UROBILINOGEN 0.2-1.0 mg/dL (0.2-1.0); WBC URINE 14 /hpf (0-5)
[2017-01-18 07:27] LABS: ALB/GLOB RATIO 1.2 (1.0-2.1); ALKALINE PHOSPHATASE 88 U/L (38-126); ALT/SGPT 33 U/L (9-52); AST/SGOT 26 U/L (14-36); BILIRUBIN,TOTAL 0.3 mg/dl (0.2-1.3); BLOOD UREA NITROGEN 13 mg/dl (7-17); CALCIUM 9.1 mg/dL (8.4-10.2); CARBON DIOXIDE 28 mmol/L (22-30); CHLORIDE 106 mmol/L (98-107); GFR AFRICAN-AMERICAN > 60; GLUCOSE,RANDOM 92 mg/dL (65-105); POTASSIUM 3.8 MMOL/L (3.6-5.0); SODIUM 140 mmol/l (132-148); TOTAL PROTEIN 6.3 G/DL (6.3-8.2)
[2017-01-18 07:50] LABS: BASO % 0.5 % (0.0-2.0); EOS # 0.2 K/uL (0.0-0.7); EOS % 3.5 % (0.0-4.0); HEMATOCRIT 35.5 % (34.0-47.0); LYMPH # 2.4 K/uL (1.0-4.3); MEAN CELL VOLUME 86.6 fl (81.0-99.0); MEAN CORPUSCULAR HEMOGLOBIN 28.8 pg (27.0-31.0); MEAN CORPUSCULAR HGB CONC 33.3 g/dL (33.0-37.0); MEAN PLATELET VOLUME 8.7 fl (7.2-11.7); MONO # 0.7 K/uL (0.0-0.8); MONO % 9.8 % (0.0-10.0); NEUT # 3.6 K/uL (1.8-7.0); NEUT % 51.2 % (50.0-75.0); NRBC % 0.1 % (0.0-0.0); RED CELL DISTRIBUTION WIDTH 14.7 % (11.5-14.5)
[2017-01-18 08:08] LABS: THYROID STIMULATING HORMONE 3.76 mIU/ML (0.46-4.68)
[2017-01-18] MEDS: Enoxaparin 40 mg Syringe SC SCH (08:41)
[2017-01-18] MEDS: Potassium Chloride 20 mEq ER Tab PO SCH (08:41)
[2017-01-18] MEDS: Pantoprazole 20 mg EC Tab PO SCH (08:41)
--- NOTE | 2017-01-18 11:14 | RAD ---
PROCEDURE: Radiographs of the Lumbar Spine. HISTORY: Trauma COMPARISON: No prior. FINDINGS: BONES: There are anterior wedge compression deformities of the T12 and to a lesser degree L1 segments felt to be chronic. . There also appears to be deformity of the superior L2 endplate. Mild anterior subluxation L5 over S1 felt to be present as well however due to patient scoliotic deformity evaluation somewhat limited. DISC SPACES: Multilevel degenerative spondylosis. Changes include varying degrees of disc space narrowing endplate eburnation and anterolateral as well as small posterior osteophyte formation. Hypertrophic facet joint changes seen throughout the most significant at the L5-S1 level. There is also a dextroscoliosis centered at the L5-S1 and L4-L5 levels. . OTHER FINDINGS: Multiple metallic clips right upper quadrant of the abdomen consistent with prior cholecystectomy. Moderate amount of stool seen throughout the colon consistent with fecal retention/ constipation. Note made of calcified atherosclerotic plaque along the abdominal aorta and iliac arteries. IMPRESSION: Chronic appearing anterior wedge deformities of the T12 and to a lesser degree L1 segments. . Superior endplate deformity at L2 segment Multilevel degenerative spondylosis with dextroscoliosis as above if further evaluation is required, consider followup CT scan.
--- NOTE | 2017-01-18 14:12 | US ---
PROCEDURE: Duplex ultrasound of the carotid and vertebral arteries. HISTORY: Syncope w/ multiple falls COMPARISON: Comparison made with prior study 09/26/2012 TECHNIQUE: Grayscale and duplex Doppler evaluation of the cervical carotid and vertebral arteries were performed. The common carotid, carotid bifurcations and cervical ICA and proximal ECA were evaluated. The vertebral arteries were evaluated for gross patency and direction. . FINDINGS: RIGHT CAROTID ARTERIES: There is mild intimal thickening in the right common carotid artery which extends into the proximal internal carotid artery. Maximal right ICA velocity = 70.3 cm/S Maximal right CCA velocity = 69.0 cm/S ICA/CCA Ratio: 1.1 LEFT CAROTID ARTERIES: There is mild intimal thickening left common carotid artery which also extends into the proximal left internal carotid artery. Maximal left ICA velocity = 67.7 cm/S Maximal left CCA velocity = 69.0 cm/S ICA/CCA Ratio: 1.0 VERTEBRAL ARTERIES: Right Vertebral Artery: Patent. Antegrade flow. Left Vertebral Artery: Patent. Antegrade flow. OTHER FINDINGS: Incidental note made of the bilateral thyroid nodules. Followup thyroid ultrasound could be performed further evaluation. IMPRESSION: Minimal intimal thickening both common carotid arteries and bifurcations without open hemodynamically significant stenosis. Bilateral thyroid nodules. Consider dedicated on the thyroid ultrasound for further evaluation.
--- NOTE | 2017-01-18 15:15 | CP.PCM.PN ---
Subjective - Date & Time of Evaluation Date of Evaluation: 01/18/17 Time of Evaluation: 20:00 - Subjective Subjective: S:76 y/o F evaluated at bedside this morning. Pt reports feeling well but complains of lower back pain and bilateral hip pain after falling down yesterday and landing on floor with her gluteal area. Pt eating well, no urinary complaints. Pt ambulates with help of a cane which is her baseline. Pt reports chronic daily dizziness. Pt denies fever, headache, paresthesia, anesthesia or limb weakness. O: VS WNL. Neuro: CN grossly intact except for CN II and IX (not examined), strength on bilateral arms 5/5, walks with help of a cane, SILT B/L on upper and lower extremities. Pt AAOx3, knows her complete name, where she is, in what city, where she lives, where she lived before staying in [place], when she came from [facility] and todays date. A/P 76 y/o woman with a PMHx of HTN, vertigo, chronic gastritis, depression, and aortic stenosis admitted due to dizziness and fall. 1.Syncope/Fall -Troponin serum level <0.0120 at 01:01 and a 12:20 today. -Carotid artery US showed minimal intimal thickening of both carotid arteries. -Neurology consult ordered. -F/U Neurology recommendations. 2.Thyroid Nodule. -Carotid artery US showed bilateral thyroid nodules. Recommended dedicated Thyroid US examination. -Will evaluate and manage as outpatient Objective - Vital Signs/Intake and Output Vital Signs (last 24 hours): Temp Pulse Resp BP Pulse Ox 98.2 F 66 18 132/79 98 01/18/17 12:00 01/18/17 12:00 01/18/17 12:00 01/18/17 12:00 01/18/17 12:00
--- NOTE | 2017-01-18 16:46 | CP.PCM.CON ---
History of Present Illness - History of Present Illness History of Present Illness: Mrs. Michelle is a pleasant 76-year-old woman with a past medical history of HTN , vertigo, chronic gastritis, depression, dementia, aortic stenosis, who had a witnessed fall without loss of consciousness yesterday. She states that prior to the fall she felt dizzy and nauseous. There was no evidence of shaking movements, urinary/bowel incontinence or significant injury. This is the 4th fall she has had in the last 4 months. Today, she denied dizziness, vertigo, light-headedness, nausea, visual changes, headache, weakness or sensory changes. She did not have difficulty with ambulation. Review of Systems - Review of Systems All systems: reviewed and no additional remarkable complaints except Past Patient History - Infectious Disease Hx of Infectious Diseases: None - Past Medical History & Family History Past Medical History?: Yes - Past Social History Smoking Status: Never Smoked - CARDIAC Hx Cardiac Disorders: Yes Hx Hypercholesterolemia: Yes Hx Hypertension: Yes - PULMONARY Hx Respiratory Disorders: No - NEUROLOGICAL Hx Neurological Disorder: Yes Hx Dementia: Yes Hx Dizziness: Yes - HEENT Hx HEENT Problems: Yes Hx Cataracts: Yes (RIGHT EYE) - RENAL Hx Chronic Kidney Disease: No - ENDOCRINE/METABOLIC Hx Endocrine Disorders: No - HEMATOLOGICAL/ONCOLOGICAL Hx Blood Disorders: No Hx Blood Transfusions: No - INTEGUMENTARY Hx Dermatological Problems: No - MUSCULOSKELETAL/RHEUMATOLOGICAL Hx Musculoskeletal Disorders: Yes Hx Arthritis: Yes Hx Falls: Yes Hx Osteoporosis: Yes Hx Rheumatoid Arthritis: Yes - GASTROINTESTINAL Hx Gastrointestinal Disorders: Yes Hx Gastritis: Yes - GENITOURINARY/GYNECOLOGICAL Hx Genitourinary Disorders: No - PSYCHIATRIC Hx Psychophysiologic Disorder: Yes Hx Anxiety: Yes Hx Depression: Yes Hx Substance Use: No - SURGICAL HISTORY Hx Surgeries: Yes Hx Cholecystectomy: Yes Hx Joint Replacement: Yes (Right Knee Sx) - ANESTHESIA Hx Anesthesia: Yes Hx Anesthesia Reactions: No Hx Malignant Hyperthermia: No Meds Allergies/Adverse Reactions: Allergies Allergy/AdvReac Type Severity Reaction Status Date / Time No Known Allergies Allergy Verified 11/08/15 10:12 - Medications Medications: Current Medications Acetaminophen (Tylenol 325mg Tab) 650 mg PO Q6 PRN PRN Reason: Pain, Mild (1-3) Last Admin: 01/18/17 16:20 Dose: 650 mg Aspirin (Aspirin Chewable) 81 mg PO DAILY [facility] Last Admin: 01/18/17 08:41 Dose: 81 mg Citalopram Hydrobromide (Celexa) 20 mg PO DAILY [facility] Last Admin: 01/18/17 08:41 Dose: 20 mg Docusate Sodium (Colace) 100 mg PO DAILY [facility] Last Admin: 01/18/17 08:41 Dose: 100 mg Enoxaparin Sodium (Lovenox) 40 mg SC DAILY [facility] PRN Reason: Protocol Last Admin: 01/18/17 08:41 Dose: 40 mg Ferrous Sulfate (Feosol) 325 mg PO DAILY [facility] Last Admin: 01/18/17 08:41 Dose: 325 mg Home Med (Memantine Hcl [Namenda Xr]) 1 cap PO DAILY [facility] Lisinopril (Zestril) 20 mg PO DAILY [facility] Last Admin: 01/18/17 08:41 Dose: 20 mg Pantoprazole Sodium (Protonix Ec Tab) 20 mg PO DAILY [facility] Last Admin: 01/18/17 08:41 Dose: 20 mg Potassium Chloride (K-Dur 20 Meq Er Tab) 20 meq PO DAILY [facility] Last Admin: 01/18/17 08:41 Dose: 20 meq Physical Exam - Constitutional Appears: Well - Head Exam Head Exam: ATRAUMATIC, NORMAL INSPECTION, NORMOCEPHALIC - Eye Exam Eye Exam: EOMI, Normal appearance, PERRL - ENT Exam ENT Exam: Mucous Membranes Moist, Normal Exam - Neck Exam Neck exam: Positive for: Normal Inspection - Respiratory Exam Respiratory Exam: Clear to Auscultation Bilateral, NORMAL BREATHING PATTERN - Cardiovascular Exam Cardiovascular Exam: REGULAR RHYTHM, +S1, +S2 - GI/Abdominal Exam GI & Abdominal Exam: Normal Bowel Sounds, Soft. absent: Tenderness - Rectal Exam Rectal Exam: Deferred - Extremities Exam Extremities exam: Positive for: normal inspection - Back Exam Back exam: NORMAL INSPECTION - Neurological Exam Neurological exam: Alert, CN II-XII Intact, Normal Gait, Oriented x3, Reflexes Normal - Expanded Neurological Exam Expanded Patient oriented to: person, place, time Cranial nerves: EOM's Intact: Normal, Facial Sensation: Normal, Nystagmus: Abnormal Right Ataxia: No Cerebellar Function: Finger to Nose: Normal Upper motor neuron: Babinski Sign: Normal Sensory exam: Lower Extremity Light Touch: Normal, Lower Extremity Pin Prick: Normal, Upper Extremity Light Touch: Normal, Upper Extremity Pin Prick: Normal Neuro motor strength exam: Left Upper Extremity: 5, Right Upper Extremity: 5, Left Lower Extremity: 5, Right Lower Extremity: 5 DTR: Achilles Tendon Left: 2+, Achilles Tendon Right: 2+, Bicep Left: 2+, Bicep Right: 2+, Brachioradialis Left: 2+, Brachioradialis Right: 2+, Patellar Left: 2 +, Patellar Right: 2+, Tricep Left: 2+, Tricep Right: 2+ - Psychiatric Exam Psychiatric exam: Normal Affect, Normal Mood - Skin Skin Exam: Dry, Intact, Normal Color, Warm Results - Vital Signs Recent Vital Signs: Last Vital Signs Temp 97.6 F 01/18/17 15:33 Pulse 64 01/18/17 15:33 Resp 20 01/18/17 15:33 BP 161/83 H 01/18/17 15:33 Pulse Ox 98 01/18/17 15:33 - Labs Result Diagrams: 01/18/17 06:45 01/18/17 05:30 - Imaging and Cardiology CT scan - head Status: Image reviewed by me, Report reviewed by me (No acute findings. ) Assessment & Plan (1) Dizziness Assessment and Plan: The patient has a history of vertigo. She does have a slight right end gaze nystagmus. This could be benign positional vertigo. However, we should rule out vertebro-basilar insufficiency with a CTA of the head/neck. The remainder of the work-up should be cardiac for neuro-cardiogenic causes. MRI of the brain should also be done to rule out cerebellar or brainstem ischemic changes. Continue aspirin 81 mg daily, and adequate hydration to maintain cerebral perfusion. Perform orthostatics for further evaluation. PT/OT eval. Status: Chronic Priority: Medium
[2017-01-18] MEDS ORDERED: Iodixanol 320 MG/ML 100 ML BOTTLE IV ONE (17:04)
[2017-01-18] MEDS ORDERED: Sodium Chloride 0.9% 50 ML IV ONE (17:04)
[2017-01-18 17:33] LABS: FOLATE > 20.0 ng/mL
--- NOTE | 2017-01-18 17:49 | CT ---
PROCEDURE: CTA of the neck neck and brain dated 01/18/2017 HISTORY: Rule out VBI COMPARISON: The comparison made with noncontrast CT scan brain obtained earlier same day TECHNIQUE: Contiguous helical/transaxial images of the neck were obtained from the level of the skull-base to the superior mediastinum in the arteriographic phase of enhancement. Coronal and sagittal reformats or also generated. IV contrast dose: 75 cc of Visipaque 320 contrast material Radiation Dose - DLP: 1863.75 mGy-cm This CT exam was performed using one or more of the following dose reduction techniques: Automated exposure control, adjustment of the mA and/or kV according to patient size, and/or use of iterative reconstruction technique. FINDINGS: Findings: The aortic arch is well opacified and widely patent. No significant atherosclerotic plaque changes are identified. The origins of the great vessels are also widely patent without significant atherosclerotic plaque occlusion or stenosis. The right and left common carotid arteries, carotid bifurcations and internal carotid arteries are all widely patent as well without occlusion, atherosclerotic plaque or significant stenosis . The distal internal carotid arteries including the petrous, cavernous and supraclinoid segments also widely patent. . . Mild calcified plaque changes seen along both distal cavernous carotid and supraclinoid segments. No evidence of dissection. Both vertebral arteries are also widely patent right-sided which is slightly larger in caliber/more dominant than the left. No evidence of atherosclerotic plaque occlusion or significant stenosis. The basilar artery widely patent. . No evidence of dissection. Major branches of the [place] patent without evidence of significant stenosis. The distal branches of the middle and posterior cerebral arteries are relatively symmetric. A2 segments and distal branches are symmetric. No evidence of large aneurysm nor vascular malformation. The jugular veins are also patent. Multiple small nonspecific bilateral cervical lymph nodes. Minor multilevel facet arthropathy of the cervical spine. Lung apices are clear. The thyroid gland is heterogeneous in appearance part of which is due to crossing streak and beam hardening artifact arising from dense clavicles and shoulder girdles however tiny hypodense nodules are also felt to be present. Consider followup thyroid ultrasound for further evaluation. Impression: The cervical arterial circulation is widely patent without occlusion. No evidence of a atherosclerotic plaque or significant stenosis. Mild partially calcified atherosclerotic plaque seen along the distal cavernous carotid the supraclinoid segments of both internal carotid arteries. Minor asymmetry of the vertebral arteries right-sided which is slightly larger in caliber more dominant than the left side - an anatomic variant. . No evidence of dissection involving the anterior or posterior circulations. Heterogeneous thyroid gland with multiple tiny low attenuation foci. Thyroid ultrasound recommended for further evaluation.
[2017-01-19] MEDS: Enoxaparin 40 mg Syringe SC SCH (08:40)
[2017-01-19] MEDS: Potassium Chloride 20 mEq ER Tab PO SCH (08:41)
[2017-01-19] MEDS: Pantoprazole 20 mg EC Tab PO SCH (08:42)
[2017-01-19] MEDS ORDERED: MEMANTINE HCL PO SCH (09:00)
--- NOTE | 2017-01-19 11:44 | CP.PCM.PN ---
Subjective - Date & Time of Evaluation Date of Evaluation: 01/19/17 Time of Evaluation: 09:00 - Subjective Subjective: 76 y/o F evaluated and examined at bedside. Pt reports feeling well. Pt reports insomnia last night and Benadryl 25 mg PO was provided. Pt eating well, good appetite, NO urinary complaints or change in bowel movement. Pt complains of left sided pain, well-localized under L breast, mild-4/10 intensity and aggravated on palpation. Pt denies fever, headache, dizziness, CP, SOB, dysuria , urinary frequency, hematuria or constipation. - Pt lives alone, but receives phone calls every day from daughters and grand children, reports sleeping from 7-8 hours every night, takes medication for sleeping. Pt loves to watch baseball games on TV. Pt cries very few times when she remembers her mother who several years ago. Pt denies sadness, lack of concentration or anhedonia. Depression screening overall negative. Objective - Vital Signs/Intake and Output Vital Signs (last 24 hours): Temp Pulse Resp BP Pulse Ox 98 F 68 20 149/79 98 01/19/17 08:00 01/19/17 08:41 01/19/17 08:00 01/19/17 08:41 01/19/17 08:00 - Medications Medications: Current Medications Acetaminophen (Tylenol 325mg Tab) 650 mg PO Q6 PRN PRN Reason: Pain, Mild (1-3) Last Admin: 01/19/17 08:39 Dose: 650 mg Aspirin (Aspirin Chewable) 81 mg PO DAILY [facility] Last Admin: 01/19/17 08:42 Dose: 81 mg Citalopram Hydrobromide (Celexa) 20 mg PO DAILY [facility] Last Admin: 01/19/17 08:41 Dose: 20 mg Docusate Sodium (Colace) 100 mg PO DAILY [facility] Last Admin: 01/19/17 08:42 Dose: 100 mg Enoxaparin Sodium (Lovenox) 40 mg SC DAILY [facility] PRN Reason: Protocol Last Admin: 01/19/17 08:40 Dose: 40 mg Ferrous Sulfate (Feosol) 325 mg PO DAILY [facility] Last Admin: 01/19/17 08:41 Dose: 325 mg Home Med (Memantine Hcl [Namenda Xr]) 1 cap PO DAILY [facility] Lisinopril (Zestril) 20 mg PO DAILY [facility] Last Admin: 01/19/17 08:41 Dose: 20 mg Pantoprazole Sodium (Protonix Ec Tab) 20 mg PO DAILY [facility] Last Admin: 01/19/17 08:42 Dose: 20 mg Potassium Chloride (K-Dur 20 Meq Er Tab) 20 meq PO DAILY [facility] Last Admin: 01/19/17 08:41 Dose: 20 meq - Constitutional Appears: Well, Non-toxic, No Acute Distress - Head Exam Head Exam: NORMAL INSPECTION - Eye Exam Eye Exam: EOMI, PERRL Pupil Exam: PERRL - ENT Exam ENT Exam: Mucous Membranes Moist - Neck Exam Neck Exam: Full ROM - Respiratory Exam Respiratory Exam: Clear to Ausculation Bilateral, NORMAL BREATHING PATTERN - Cardiovascular Exam Cardiovascular Exam: REGULAR RHYTHM, RRR - Extremities Exam Extremities Exam: Normal Capillary Refill, Normal Inspection. absent: Joint Swelling, Tenderness - Neurological Exam Neurological Exam: Alert, Altered, Awake, Oriented x3 Assessment and Plan - Assessment and Plan (Free Text) Assessment: 76 y/o woman with a PMHx of HTN, vertigo, chronic gastritis, depression, dementia (not specified, not on medications), aortic stenosis (last echo 07/2014 ) admitted for dizziness and fall. Plan: 1. Dizziness and Fall -Chornic dizziness VS Vertigo. No change on admission. -Troponin neg x3. -EKG and TSH WNL. - XR lumbo-sacral: chronic appearing anterior wedge deformities of the T12 and to a lesser degree L1 segments. Superior endplate deformity at L2 segment. Multilevel degenerative spondylosis with dextroscoliosis. -Carotid artery US showed minimal intimal thickening of both carotid arteries. - Head/Neck CTA: The cervical arterial circulation is widely patent without occlusion. No evidence of atherosclerotic plaque or significant stenosis. Mild partially calcified atherosclerotic plaque seen along the distal cavernous carotid the supraclinoid segment of both internal carotid arteries. Minor symmetry of the vertebral arteries right sided which is slightly larger in caliber more dominant than the left side an anatomic variant. No evidence of dissection involving the anterior or posterior circulations. -Neurology on board. Recommeded MRI of brain. -F/U echocardiogram, Brain MRI and PT evaluation and treatment. 2. UTI - Urinalysis consistent w/ UTI in ED. - Urinary Cx preliminary showed gram neg juan jose growth. - Given Ceftriaxone 1 gm IV - follow up urine Cx final report. 3. HTN - Controlled w/ lisinopril 20 mg and nifedipine 90 mg at Home. - Nifedipinde is being held due to dizziness and potential hypotensive side effect. - Currently on lisinopril 20 mg PO at hospital. - f/u V.S. 4. Depression - controlled w/ Citalopram 20 mg - Depression screening was negative today. 5. Iron deficiency anemia - feosol 325 mg PO daily - colace 100 mg PO stool softener 6. GERD - Currently on Protonix 20 mg PO 7. Hypokalemia - Kdur 10 mg daily. - K+ today: 3.8 WNL. - f/u BMP. 8.Thyroid Nodule. -Carotid artery US showed bilateral thyroid nodules. Recommended dedicated Thyroid US examination. -Head and Neck CTA: Heterogeneous thyroid gland with multiple tiny low attenuation foci. Thyroid US recommended for further evaluation. -Will evaluate and manage as outpatient 9. DVT Prophylaxis - ASA 81 mg PO - lovenox 20 mg SC daily.
--- NOTE | 2017-01-19 14:34 | MRI ---
PROCEDURE: MRI BRAIN WITHOUT CONTRAST HISTORY: r/o cerebellar/brainstem ischemic changes COMPARISON: Head CT without contrast 01/18/2017. TECHNIQUE: Multiplanar, multisequence MR images of the brain were obtained without intravenous contrast enhancement. FINDINGS: HEMORRHAGE: None DWI: No evidence of an acute or early subacute infarction. BRAIN PARENCHYMA: Diffuse cerebral atrophy chronic microangiopathy are reiterated and remain limited in overall appearance. Pericolic pattern is otherwise unremarkable. No mass effect identified. No suspicious extra-axial fluid collection identified. VENTRICLES: Unremarkable. No hydrocephalus. CRANIUM: Unremarkable. ORBITS: Grossly unremarkable. PARANASAL SINUSES/MASTOIDS: Clear VASCULAR SYSTEM: Skull base flow voids intact. OTHER FINDINGS: None. IMPRESSION: Age related neuro degenerative changes are reiterated. No acute intracranial findings as discussed above.
[2017-01-20 06:10] LABS: BLOOD UREA NITROGEN 16 mg/dl (7-17); CALCIUM 9.3 mg/dL (8.4-10.2); CARBON DIOXIDE 28 mmol/L (22-30); CHLORIDE 105 mmol/L (98-107); GFR AFRICAN-AMERICAN > 60; GLUCOSE,RANDOM 91 mg/dL (65-105); POTASSIUM 4.2 MMOL/L (3.6-5.0); SODIUM 140 mmol/l (132-148)
[2017-01-20] MEDS: Enoxaparin 40 mg Syringe SC SCH (09:06)
[2017-01-20] MEDS: Potassium Chloride 20 mEq ER Tab PO SCH (09:07)
[2017-01-20] MEDS: Pantoprazole 20 mg EC Tab PO SCH (09:07)
--- NOTE | 2017-01-20 10:16 | CP.PCM.PN ---
Subjective - Date & Time of Evaluation Date of Evaluation: 01/20/17 Time of Evaluation: 09:00 - Subjective Subjective: 76 y/o F examined at bedside. Pt reports feeling well, eating well, good appetite and NO overnight event. Pt reports she felt dizzy last night before sleeping. Pt denies fever, headache, CP, abdominal pain, N/V/D, dysuria or urinary frequency. Objective - Vital Signs/Intake and Output Vital Signs (last 24 hours): Temp Pulse Resp BP Pulse Ox 98.0 F 64 18 154/70 H 99 01/20/17 08:00 01/20/17 09:06 01/20/17 08:00 01/20/17 09:06 01/20/17 08:00 - Medications Medications: Current Medications Acetaminophen (Tylenol 325mg Tab) 650 mg PO Q6 PRN PRN Reason: Pain, Mild (1-3) Last Admin: 01/19/17 17:19 Dose: 650 mg Aspirin (Aspirin Chewable) 81 mg PO DAILY [facility] Last Admin: 01/20/17 09:07 Dose: 81 mg Citalopram Hydrobromide (Celexa) 20 mg PO DAILY [facility] Last Admin: 01/20/17 09:07 Dose: 20 mg Docusate Sodium (Colace) 100 mg PO DAILY [facility] Last Admin: 01/20/17 09:07 Dose: 100 mg Enoxaparin Sodium (Lovenox) 40 mg SC DAILY [facility] PRN Reason: Protocol Last Admin: 01/20/17 09:06 Dose: 40 mg Ferrous Sulfate (Feosol) 325 mg PO DAILY [facility] Last Admin: 01/20/17 09:07 Dose: 325 mg Home Med (Memantine Hcl [Namenda Xr]) 1 cap PO DAILY [facility] Lisinopril (Zestril) 20 mg PO DAILY [facility] Last Admin: 01/20/17 09:06 Dose: 20 mg Pantoprazole Sodium (Protonix Ec Tab) 20 mg PO DAILY [facility] Last Admin: 01/20/17 09:07 Dose: 20 mg Potassium Chloride (K-Dur 20 Meq Er Tab) 20 meq PO DAILY [facility] Last Admin: 01/20/17 09:07 Dose: 20 meq - Labs Labs: 01/20/17 05:20 - Constitutional Appears: Well, No Acute Distress - Head Exam Head Exam: NORMAL INSPECTION - Eye Exam Eye Exam: EOMI, Normal appearance - ENT Exam ENT Exam: Mucous Membranes Moist - Neck Exam Neck Exam: Full ROM - Respiratory Exam Respiratory Exam: Clear to Ausculation Bilateral, NORMAL BREATHING PATTERN - Cardiovascular Exam Cardiovascular Exam: REGULAR RHYTHM, +S1, +S2 - GI/Abdominal Exam GI & Abdominal Exam: Soft, Normal Bowel Sounds. absent: Guarding, Rigid, Tenderness Assessment and Plan - Assessment and Plan (Free Text) Plan: 76 y/o woman with a PMHx of HTN, vertigo, chronic gastritis, depression, dementia (not specified, not on medications), aortic stenosis (last echo 07/2014 ) admitted for dizziness and fall. 1. Dizziness and Fall - Chornic dizziness VS Vertigo. No change on admission. - Brain MRI showed NO acute intra-cranial process. - Echocardiogram: Normal LV systolic function. Aortic Valve Sclerosis. - Troponin neg x3. - EKG and TSH: WNL. - XR lumbo-sacral: non-alarming with multilevel degenerative spondylosis with dextroscoliosis. - Carotid artery US showed minimal intimal thickening of both carotid arteries. - Head/Neck CTA did NOT report any alarming sign. . - Neurology on board. - Physical therapy recommends therapy 3-5x per week for 1 week and d/c home with services. - f/u Neuro recommendations. 2. UTI - Urinalysis consistent w/ UTI in ED. Given Ceftriaxone 1 gm IV while on ER. - Urinary Cx today showed ESBL growth. - ID consult ordered. - F/u ID recommendations. 3. HTN - Controlled w/ lisinopril 20 mg and nifedipine 90 mg at Home. - Nifedipinde is being held due to dizziness and potential hypotensive side effect. - Currently on lisinopril 20 mg PO at hospital. - f/u V.S. 4. Depression - controlled w/ Citalopram 20 mg - Depression screening was negative today. 5. Iron deficiency anemia - feosol 325 mg PO daily - colace 100 mg PO stool softener 6. GERD - Currently on Protonix 20 mg PO 7. Hypokalemia - Kdur 10 mg daily. - K+ today: 3.8 WNL. - f/u BMP. 8.Thyroid Nodule. -Carotid artery US showed bilateral thyroid nodules. Recommended dedicated Thyroid US examination. -Head and Neck CTA: Heterogeneous thyroid gland with multiple tiny low attenuation foci. Thyroid US recommended for further evaluation. -Will evaluate and manage as outpatient 9. DVT Prophylaxis - ASA 81 mg PO - lovenox 20 mg SC daily.
--- NOTE | 2017-01-20 11:47 | CARD ---
APPROVED REPORT EXAM: Two-dimensional and M-mode echocardiogram with Doppler and color Doppler. Other Information Quality : AverageRhythm : NSR INDICATION Aortic Valve Disease Syncope 2D DIMENSIONS IVSd0.89 (0.7-1.1cm)LVDd3.28 (3.9-5.9cm) LVOT Diameter1.98 (1.8-2.4cm)PWd1.01 (0.7-1.1cm) IVSs0.96 (0.8-1.2cm)LVDs2.53 (2.5-4.0cm) FS (%) 22.7 %PWs1.00 (0.8-1.2cm) M-Mode DIMENSIONS Left Atrium (MM)2.54 (2.5-4.0cm)IVSd1.38 (0.7-1.1cm) Aortic Root3.31 (2.2-3.7cm)LVDd2.23 (4.0-5.6cm) Aortic Cusp Exc.1.76 (1.5-2.0cm)PWd1.19 (0.7-1.1cm) IVSs1.54 cmFS (%) 37 % LVDs1.41 (2.0-3.8cm)PWs1.74 cm Mitral Valve MV E Llknzqea06.9cm/sMV DECEL [id number] A Gjqmkhmb29.5cm/s MV ZFK96luJ/A ratio0.9MVA (PHT)3.45cm2 TDI Lateral E' Peak V4.40cm/sMedial E' Peak V6.68cm/sE/Lateral E'20.9 E/Medial E'13.8 Pulmonary Valve PV Peak Pwnomkzy50.5cm/s LEFT VENTRICLE The left ventricle is normal size. There is normal left ventricular wall thickness. The left ventricular function is normal. The left ventricular ejection fraction is 60% There is normal LV segmental wall motion. The left ventricular diastolic function is normal. No left ventricle thrombus noted on this study. There is no ventricular septal defect visualized. There is no left ventricular aneurysm. There is no mass noted in the left ventricle. RIGHT VENTRICLE The right ventricle is normal size. There is normal right ventricular wall thickness. The right ventricular systolic function is normal. ATRIA The left atrium size is normal. The right atrium size is normal. The interatrial septum is intact with no evidence for an atrial septal defect. AORTIC VALVE The aortic valve is moderately sclerotic. No aortic regurgitation is present. There is no aortic valvular stenosis. There is no aortic valvular vegetation. MITRAL VALVE The mitral valve is normal in structure and function. There is no evidence of mitral valve prolapse. There is no mitral valve stenosis. There is no mitral valve regurgitation noted. TRICUSPID VALVE The tricuspid valve is normal in structure and function. There is no tricuspid valve regurgitation noted. There is no tricuspid valve prolapse or vegetation. There is no tricuspid valve stenosis. PULMONIC VALVE The pulmonary valve is normal in structure and function. There is no pulmonic valvular regurgitation. There is no pulmonic valvular stenosis. GREAT VESSELS The aortic root is normal in size. The ascending aorta is normal in size. The IVC is normal in size and collapses >50% with inspiration. PERICARDIAL EFFUSION The pericardium appears normal. There is no pleural effusion. <Conclusion> Normal LV Systolic Function Aortic Valve Sclerosis
--- NOTE | 2017-01-20 14:35 | CP.PCM.CON ---
History of Present Illness - History of Present Illness History of Present Illness: 76 y/o woman presents to ED for dizziness and fall. The patient was at home when she became dizzy and fell on her rear end and then the back of her head. 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, daughter works at [employer] but takes care of patient on weekends Review of Systems - Constitutional Constitutional: As Per HPI - EENT Eyes: absent: As Per HPI, Blind Spots, Blurred Vision, Change in Vision, Decreased Night Vision, Diplopia, Discharge, Dry Eye, Exophthalmos, Floaters, Irritation, Itchy Eyes, Loss of Peripheral Vision, Pain, Photophobia, Requires Corrective Lenses, Sees Flashes, Spots in Vision, Tunnel Vision, Other Visual Disturbances, Loss of Vision, Other Ears: absent: As Per HPI, Decreased Hearing, Ear Discharge, Ear Pain, Tinnitus, Abnormal Hearing, Disequilibrium, Dizziness, Other Nose/Mouth/Throat: absent: As Per HPI, Epistaxis, Nasal Congestion, Nasal Discharge, Nasal Obstruction, Nasal Trauma, Nose Pain, Post Nasal Drip, Sinus Pain, Sinus Pressure, Bleeding Gums, Change in Voice, Dental Pain, Dry Mouth, Dysphagia, Halitosis, Hoarsness, Lip Swelling, Mouth Lesions, Mouth Pain, Odynophagia, Sore Throat, Throat Swelling, Tongue Swelling, Facial Pain, Neck Pain, Neck Mass, Other - Breasts Breasts: absent: As Per HPI, Change in Shape, Mass, Pain, Nipple Discharge, Nipple Inversion, Skin Changes, Swelling, Other - Cardiovascular Cardiovascular: As Per HPI - Respiratory Respiratory: absent: As Per HPI, Cough, Dyspnea, Hemoptysis, Dyspnea on Exertion , Wheezing, Snoring, Stridor, Pain on Inspiration, Chest Congestion, Excessive Mucous Production, Change in Mucous Color, Pain with Coughing, Other - Gastrointestinal Gastrointestinal: absent: As Per HPI, Abdominal Pain, Belching, Bloating, Change in Bowel Habits, Change in Stool Character, Coffee Ground Emesis, Constipation, Cramping, Diarrhea, Dyspepsia, Dysphagia, Early Satiety, Excessive Flatus, Fecal Incontinence, Heartburn, Hematemesis, Hematochezia, Loose Stools, Melena, Nausea, Odynophagia, Temesmus, Vomiting, Other - Genitourinary Genitourinary: As Per HPI - Reproductive: Female Reproductive:Female: absent: As Per HPI, Amenorrhea, Amenorrhea/ Control, Currently Menstual, Cycle <21 Days, Cycle >35 Days, Cycle Variable, Menses 1-7 Days, Menses >/= 8 Days, Menses Variable, Cycle > 4 Weeks Between, No Menses for 6 Months, Heavy Menses, Light Menses, Normal Menses, Spotting Between Cycles , S/P Hysterectomy, Menopausal, Post Menopausal, Premenarche, Abnormal Vaginal Bleeding, Dysmenorrhea, Dyspareunia, Genital Lesions, Genital Pruritis, Pelvic Pain, Prolapse Symptoms, Sexual Dysfunction, Vaginal Discharge, Vaginal Dryness , Vaginal Odor, Vaginal Pruritis, Other - Menstruation Menstruation: absent: As Per HPI, Amenorrhea, Amenorrhea/ Control, Currently Menstual, Cycle <21 Days, Cycle >35 Days, Cycle Variable, Menses 1-7 Days, Menses >/= 8 Days, Menses Variable, Cycle > 4 Weeks Between, No Menses for 6 Months, Heavy Menses, Light Menses, Normal Menses, Spotting Between Cycles , S/P Hysterectomy, Menopausal, Post Menopausal, Premenarche, Abnormal Vaginal Bleeding, Dysmenorrhea, Other - Musculoskeletal Musculoskeletal: As Per HPI - Integumentary Integumentary: absent: As Per HPI, Acne, Alopecia, Bleeding Lesions, Change in Hair, Change in Nails, Change in Pigmentation, Changing Lesions, Dry Skin, Erythema, Furuncle, Hirsutism, Lesions, New Lesions, Non-Healing Lesions, Photosensitivity, Pruritus, Rash, Skin Pain, Skin Ulcer, Sores, Striae, Swelling , Unusual Bruising, Wounds, Jaundice, Other - Neurological Neurological: As Per HPI, Abnormal Gait, Dizziness - Psychiatric Psychiatric: absent: As Per HPI, Abnormal Sleep Pattern, Anhedonia, Anxiety, Auditory Hallucinations, Behavioral Changes, Change in Appetite, Change in Libido, Confusion, Depression, Difficulty Concentrating, Hallucinations, Homicidal Ideation, Hopelessness, Irritability, Memory Loss, Mood Swings, Panic Attacks, Paranoia, Suicidal Ideation, Visual Hallucinations, Tactile Hallucinations, Other - Endocrine Endocrine: absent: As Per HPI, Change in Body Appearance, Change in Libido, Cold Intolorance, Deepening of Voice, Excessive Sweating, Fatigue, Flushing, Heat Intolorance, Increase in Ring/Shoe/Hat Size, Palpitations, Polydipsia, Polyphagia, Polyuria, Other - Hematologic/Lymphatic Hematologic: absent: As Per HPI, Easy Bleeding, Easy Bruising, Lymphadenopathy, Other Past Patient History - Infectious Disease Hx of Infectious Diseases: None - Past Medical History & Family History Past Medical History?: Yes - Past Social History Smoking Status: Never Smoked - CARDIAC Hx Cardiac Disorders: Yes Hx Hypercholesterolemia: Yes Hx Hypertension: Yes - PULMONARY Hx Respiratory Disorders: No - NEUROLOGICAL Hx Neurological Disorder: Yes Hx Dementia: Yes Hx Dizziness: Yes - HEENT Hx HEENT Problems: Yes Hx Cataracts: Yes (RIGHT EYE) - RENAL Hx Chronic Kidney Disease: No - ENDOCRINE/METABOLIC Hx Endocrine Disorders: No - HEMATOLOGICAL/ONCOLOGICAL Hx Blood Disorders: No Hx Blood Transfusions: No - INTEGUMENTARY Hx Dermatological Problems: No - MUSCULOSKELETAL/RHEUMATOLOGICAL Hx Musculoskeletal Disorders: Yes Hx Arthritis: Yes Hx Falls: Yes Hx Osteoporosis: Yes Hx Rheumatoid Arthritis: Yes - GASTROINTESTINAL Hx Gastrointestinal Disorders: Yes Hx Gastritis: Yes - GENITOURINARY/GYNECOLOGICAL Hx Genitourinary Disorders: No - PSYCHIATRIC Hx Psychophysiologic Disorder: Yes Hx Anxiety: Yes Hx Depression: Yes Hx Substance Use: No - SURGICAL HISTORY Hx Surgeries: Yes Hx Cholecystectomy: Yes Hx Joint Replacement: Yes (Right Knee Sx) - ANESTHESIA Hx Anesthesia: Yes Hx Anesthesia Reactions: No Hx Malignant Hyperthermia: No Meds Allergies/Adverse Reactions: Allergies Allergy/AdvReac Type Severity Reaction Status Date / Time No Known Allergies Allergy Verified 11/08/15 10:12 - Medications Medications: Current Medications Acetaminophen (Tylenol 325mg Tab) 650 mg PO Q6 PRN PRN Reason: Pain, Mild (1-3) Last Admin: 01/19/17 17:19 Dose: 650 mg Aspirin (Aspirin Chewable) 81 mg PO DAILY [facility] Last Admin: 01/20/17 09:07 Dose: 81 mg Citalopram Hydrobromide (Celexa) 20 mg PO DAILY [facility] Last Admin: 01/20/17 09:07 Dose: 20 mg Docusate Sodium (Colace) 100 mg PO DAILY [facility] Last Admin: 01/20/17 09:07 Dose: 100 mg Enoxaparin Sodium (Lovenox) 40 mg SC DAILY [facility] PRN Reason: Protocol Last Admin: 01/20/17 09:06 Dose: 40 mg Ferrous Sulfate (Feosol) 325 mg PO DAILY [facility] Last Admin: 01/20/17 09:07 Dose: 325 mg Home Med (Memantine Hcl [Namenda Xr]) 1 cap PO DAILY [facility] Lisinopril (Zestril) 20 mg PO DAILY [facility] Last Admin: 01/20/17 09:06 Dose: 20 mg Pantoprazole Sodium (Protonix Ec Tab) 20 mg PO DAILY [facility] Last Admin: 01/20/17 09:07 Dose: 20 mg Potassium Chloride (K-Dur 20 Meq Er Tab) 20 meq PO DAILY [facility] Last Admin: 01/20/17 09:07 Dose: 20 meq Physical Exam - Constitutional Appears: Non-toxic, Chronically Ill - Head Exam Head Exam: ATRAUMATIC, NORMAL INSPECTION, NORMOCEPHALIC - Eye Exam Eye Exam: EOMI, PERRL. absent: Scleral icterus - ENT Exam ENT Exam: Mucous Membranes Dry, Normal External Ear Exam, Normal Oropharynx - Neck Exam Neck exam: Negative for: Lymphadenopathy - Respiratory Exam Respiratory Exam: Decreased Breath Sounds, Clear to Auscultation Bilateral - Cardiovascular Exam Cardiovascular Exam: Irregular Rhythm, +S1, +S2 - GI/Abdominal Exam GI & Abdominal Exam: Diminished Bowel Sounds, Soft. absent: Tenderness - Rectal Exam Rectal Exam: Deferred - Exam Exam: NORMAL INSPECTION - Extremities Exam Extremities exam: Positive for: pedal pulses present. Negative for: calf tenderness, pedal edema, tenderness - Back Exam Back exam: absent: CVA tenderness (L), CVA tenderness (R), paraspinal tenderness - Neurological Exam Neurological exam: Alert, CN II-XII Intact, Oriented x3, Reflexes Normal - Psychiatric Exam Psychiatric exam: Normal Mood - Skin Skin Exam: Dry, Intact Results - Vital Signs Recent Vital Signs: Last Vital Signs Temp 98.0 F 01/20/17 12:00 Pulse 82 01/20/17 12:00 Resp 18 01/20/17 12:00 BP 130/81 01/20/17 12:00 Pulse Ox 96 01/20/17 12:00 - Labs Result Diagrams: 01/18/17 06:45 01/20/17 05:20 Labs: Laboratory Results - last 24 hr 01/20/17 05:20 Sodium 140 Potassium 4.2 Chloride 105 Carbon Dioxide 28 Anion Gap 12 BUN 16 Creatinine 0.9 Est GFR ( Amer) > 60 Est GFR (Non-Af Amer) > 60 Random Glucose 91 Calcium 9.3 Assessment & Plan (1) Frequent falls Status: Acute (2) Dizziness Status: Chronic Priority: Medium (3) Abdominal pain Status: Acute (4) Anginal pain Status: Acute (5) Aortic stenosis Status: Acute (6) Arm pain, left Status: Acute (7) Chest pain Status: Acute - Assessment and Plan (Free Text) Assessment: ideally would place on Cipro PO for UTI however may have interaction with Celexa will repeat culture and start Merrem if repeat culture neg may d/c iv antiobiotics
[2017-01-20] MEDS: Meropenem 500 MG in Sodium Chloride 0.9% 100 ML IVPB SCH (16:52)
[2017-01-20 19:42] LABS: RBC URINE 6 /hpf (0-3); URINE BILIRUBIN NEGATIVE (NEGATIVE); URINE BLOOD MODERATE (NEGATIVE); URINE COLOR STRAW (YELLOW); URINE GLUCOSE (UA) NEG (Normal); URINE KETONE NEGATIVE (NEGATIVE); URINE LEUKOCYTE ESTERASE NEG Leu/uL (Negative); URINE PROTEIN NEGATIVE (NEGATIVE); URINE UROBILINOGEN 0.2-1.0 mg/dL (0.2-1.0); WBC URINE 1 /hpf (0-5)
[2017-01-21] MEDS: Meropenem 500 MG in Sodium Chloride 0.9% 100 ML IVPB SCH ×2 (01:05→10:13)
--- NOTE | 2017-01-21 10:04 | CP.PCM.PN ---
Subjective - Date & Time of Evaluation Date of Evaluation: 01/21/17 Time of Evaluation: 07:00 - Subjective Subjective: 76 y.o F evaluated and examined at bedside. Pt reports feeling well, eating well , good appetite, soft bowel movement with NO dysuria, urinary frequency, hematuria or urinary urgency. Dizziness was NOT present yesterday. Pt complained of difficulties initiated sleeping, pt was given Benadryl PO 25 mg. Pt denies fever, headache, acute hearing disturbances, CP, SOB, abdominal pain, N/V or change in bowel movement. Objective - Vital Signs/Intake and Output Vital Signs (last 24 hours): Temp Pulse Resp BP Pulse Ox 98.5 F 65 18 146/85 99 01/21/17 08:20 01/21/17 08:20 01/21/17 08:20 01/21/17 08:20 01/21/17 08:20 - Medications Medications: Current Medications Acetaminophen (Tylenol 325mg Tab) 650 mg PO Q6 PRN PRN Reason: Pain, Mild (1-3) Last Admin: 01/19/17 17:19 Dose: 650 mg Aspirin (Aspirin Chewable) 81 mg PO DAILY [facility] Last Admin: 01/20/17 09:07 Dose: 81 mg Citalopram Hydrobromide (Celexa) 20 mg PO DAILY [facility] Last Admin: 01/20/17 09:07 Dose: 20 mg Docusate Sodium (Colace) 100 mg PO DAILY [facility] Last Admin: 01/20/17 09:07 Dose: 100 mg Enoxaparin Sodium (Lovenox) 40 mg SC DAILY [facility] PRN Reason: Protocol Last Admin: 01/20/17 09:06 Dose: 40 mg Ferrous Sulfate (Feosol) 325 mg PO DAILY [facility] Last Admin: 01/20/17 09:07 Dose: 325 mg Home Med (Memantine Hcl [Namenda Xr]) 1 cap PO DAILY [facility] Meropenem 500 mg/ Sodium (Chloride) 100 mls @ 100 mls/hr IVPB Q8 [facility] Last Admin: 01/21/17 01:05 Dose: 100 mls/hr Lisinopril (Zestril) 20 mg PO DAILY [facility] Last Admin: 01/20/17 09:06 Dose: 20 mg Pantoprazole Sodium (Protonix Ec Tab) 20 mg PO DAILY [facility] Last Admin: 09/06/17 09:07 Dose: 20 mg Potassium Chloride (K-Dur 20 Meq Er Tab) 20 meq PO DAILY [facility] Last Admin: 01/20/17 09:07 Dose: 20 meq - Labs Labs: 01/20/17 05:20 - Constitutional Appears: Well, Non-toxic, No Acute Distress - Head Exam Head Exam: NORMAL INSPECTION - Eye Exam Eye Exam: EOMI, Normal appearance, PERRL - ENT Exam ENT Exam: Mucous Membranes Moist - Neck Exam Neck Exam: Full ROM - Respiratory Exam Respiratory Exam: Clear to Ausculation Bilateral, NORMAL BREATHING PATTERN - Cardiovascular Exam Cardiovascular Exam: REGULAR RHYTHM - GI/Abdominal Exam GI & Abdominal Exam: Soft, Normal Bowel Sounds. absent: Tenderness Assessment and Plan - Assessment and Plan (Free Text) Plan: 76 y/o woman with a PMHx of HTN, vertigo, chronic gastritis, depression, aortic stenosis admitted for dizziness and fall. Urine culture positive for resistant E. Coli (ESBL). 1. Dizziness and Fall - Chornic dizziness VS Vertigo. - Brain MRI showed NO acute intra-cranial process. - Echocardiogram: Normal LV systolic function. Aortic Valve Sclerosis. - Troponin neg x3. - EKG and TSH: WNL. - Orthostatic BP measurement - WNL. - XR lumbo-sacral: non-alarming with multilevel degenerative spondylosis with dextroscoliosis. - Carotid artery US showed minimal intimal thickening of both carotid arteries. - Head/Neck CTA did NOT report any alarming sign. . - Neurology on board. - Physical therapy recommends therapy 3-5x per week for 1 week and d/c home with services. - f/u Neuro recommendations. 2. UTI - ESBL positive urine culture - Asymptomatic. - Urinalysis consistent w/ UTI in ED. Given Ceftriaxone 1 gm IV while on ER. - Urinary Cx today showed ESBL growth. - ID on Board. - Meropenem IV 500 mg IVPB Q8H. - F/u ID recommendations, repeated Urine Cx and blood Cx. 3. HTN - Controlled w/ lisinopril 20 mg and nifedipine 90 mg at Home. - Nifedipine is being held due to dizziness and potential hypotensive side effect. - Currently on lisinopril 20 mg PO at hospital. - f/u V.S. 4. Depression - controlled w/ Citalopram 20 mg - Depression screening was negative today. 5. Iron deficiency anemia - feosol 325 mg PO daily - colace 100 mg PO stool softener 6. GERD - Currently on Protonix 20 mg PO 7. Hypokalemia - Kdur 20 mg daily. - K+ today: 4.2-WNL (on 01/20). - f/u BMP. 8.Thyroid Nodule. -Carotid artery US showed bilateral thyroid nodules. Recommended dedicated Thyroid US examination. -Head and Neck CTA: Heterogeneous thyroid gland with multiple tiny low attenuation foci. Thyroid US recommended for further evaluation. -Will evaluate and manage as outpatient 9. DVT Prophylaxis - ASA 81 mg PO - lovenox 20 mg SC daily.
[2017-01-21] MEDS: Potassium Chloride 20 mEq ER Tab PO SCH (10:12)
[2017-01-21] MEDS: Pantoprazole 20 mg EC Tab PO SCH (10:12)
[2017-01-21] MEDS: Enoxaparin 40 mg Syringe SC SCH (10:12)
--- NOTE | 2017-01-21 18:42 | CP.PCM.PN ---
Subjective - Date & Time of Evaluation Date of Evaluation: 01/21/17 Time of Evaluation: 07:00 - Subjective Subjective: AFEB ON IV MERREM REPEAT CULTURES SENT CIPRO WOULD BE IDEAL HOWEVER DRUG INTERACTION PREVENTS THIS - QT PROLONG- CONSIDER D/C SSRI Objective - Vital Signs/Intake and Output Vital Signs (last 24 hours): Temp Pulse Resp BP Pulse Ox 98.1 F 82 20 154/88 H 98 01/21/17 17:00 01/21/17 17:00 01/21/17 17:00 01/21/17 17:00 01/21/17 17:00 - Medications Medications: Current Medications Acetaminophen (Tylenol 325mg Tab) 650 mg PO Q6 PRN PRN Reason: Pain, Mild (1-3) Last Admin: 01/19/17 17:19 Dose: 650 mg Aspirin (Aspirin Chewable) 81 mg PO DAILY [facility] Last Admin: 01/21/17 10:12 Dose: 81 mg Citalopram Hydrobromide (Celexa) 20 mg PO DAILY [facility] Last Admin: 01/21/17 10:12 Dose: 20 mg Docusate Sodium (Colace) 100 mg PO DAILY [facility] Last Admin: 01/21/17 10:12 Dose: 100 mg Enoxaparin Sodium (Lovenox) 40 mg SC DAILY [facility] PRN Reason: Protocol Last Admin: 01/21/17 10:12 Dose: 40 mg Ferrous Sulfate (Feosol) 325 mg PO DAILY [facility] Last Admin: 01/21/17 10:11 Dose: 325 mg Home Med (Memantine Hcl [Namenda Xr]) 1 cap PO DAILY [facility] Meropenem 500 mg/ Sodium (Chloride) 100 mls @ 100 mls/hr IVPB Q8 [facility] Last Admin: 01/21/17 10:13 Dose: 100 mls/hr Lisinopril (Zestril) 20 mg PO DAILY [facility] Last Admin: 01/21/17 10:12 Dose: 20 mg Pantoprazole Sodium (Protonix Ec Tab) 20 mg PO DAILY [facility] Last Admin: 01/21/17 10:12 Dose: 20 mg Potassium Chloride (K-Dur 20 Meq Er Tab) 20 meq PO DAILY [facility] Last Admin: 01/21/17 10:12 Dose: 20 meq - Labs Labs: 01/20/17 05:20 - Constitutional Appears: Non-toxic, Chronically Ill - Head Exam Head Exam: NORMOCEPHALIC - Eye Exam Eye Exam: PERRL. absent: Scleral icterus - ENT Exam ENT Exam: Mucous Membranes Dry - Neck Exam Neck Exam: absent: Lymphadenopathy - Respiratory Exam Respiratory Exam: Decreased Breath Sounds, Clear to Ausculation Bilateral - Cardiovascular Exam Cardiovascular Exam: REGULAR RHYTHM - GI/Abdominal Exam GI & Abdominal Exam: Distended, Soft - Rectal Exam Rectal Exam: Deferred - Exam Exam: NORMAL INSPECTION - Extremities Exam Extremities Exam: absent: Calf Tenderness, Pedal Edema, Tenderness - Back Exam Back Exam: absent: CVA tenderness (L), CVA tenderness (R) - Neurological Exam Neurological Exam: Alert, Awake, Oriented x3 - Psychiatric Exam Psychiatric exam: Normal Mood Assessment and Plan (1) Frequent falls Status: Acute (2) Dizziness Status: Chronic (3) Abdominal pain Status: Acute (4) Anginal pain Status: Acute (5) Aortic stenosis Status: Acute (6) Arm pain, left Status: Acute (7) Chest pain Status: Acute
[2017-01-22] MEDS: Meropenem 500 MG in Sodium Chloride 0.9% 100 ML IVPB SCH ×3 (00:29→17:39)
--- NOTE | 2017-01-22 09:33 | CP.PCM.PN ---
Subjective - Date & Time of Evaluation Date of Evaluation: 01/22/17 Time of Evaluation: 08:10 - Subjective Subjective: 76 y/o F admitted for dizziness and fall, found urine culture to be positive for ESBL. Today, pt reports feeling well with NO overnight event . Pt eating well, without change in bowel movement and NO dysuria, urinary frequency, hematuria or urgency. Pt denies fever, headache, CP, SOB, abdominal pain, N/V/D or peripheral edema. Objective - Vital Signs/Intake and Output Vital Signs (last 24 hours): Temp Pulse Resp BP Pulse Ox 98.0 F 71 18 143/71 100 01/22/17 08:00 01/22/17 08:00 01/22/17 08:00 01/22/17 08:00 01/22/17 08:00 - Medications Medications: Current Medications Acetaminophen (Tylenol 325mg Tab) 650 mg PO Q6 PRN PRN Reason: Pain, Mild (1-3) Last Admin: 01/19/17 17:19 Dose: 650 mg Aspirin (Aspirin Chewable) 81 mg PO DAILY [facility] Last Admin: 01/21/17 10:12 Dose: 81 mg Citalopram Hydrobromide (Celexa) 20 mg PO DAILY [facility] Last Admin: 01/21/17 10:12 Dose: 20 mg Docusate Sodium (Colace) 100 mg PO DAILY [facility] Last Admin: 01/21/17 10:12 Dose: 100 mg Enoxaparin Sodium (Lovenox) 40 mg SC DAILY [facility] PRN Reason: Protocol Last Admin: 01/21/17 10:12 Dose: 40 mg Ferrous Sulfate (Feosol) 325 mg PO DAILY [facility] Last Admin: 01/21/17 10:11 Dose: 325 mg Home Med (Memantine Hcl [Namenda Xr]) 1 cap PO DAILY [facility] Meropenem 500 mg/ Sodium (Chloride) 100 mls @ 100 mls/hr IVPB Q8 [facility] Last Admin: 01/22/17 00:29 Dose: 100 mls/hr Lisinopril (Zestril) 20 mg PO DAILY [facility] Last Admin: 01/21/17 10:12 Dose: 20 mg Pantoprazole Sodium (Protonix Ec Tab) 20 mg PO DAILY [facility] Last Admin: 01/21/17 10:12 Dose: 20 mg Potassium Chloride (K-Dur 20 Meq Er Tab) 20 meq PO DAILY [facility] Last Admin: 01/21/17 10:12 Dose: 20 meq - Labs Labs: 01/20/17 05:20 - Constitutional Appears: Well, Non-toxic, No Acute Distress - Head Exam Head Exam: ATRAUMATIC, NORMAL INSPECTION - Eye Exam Eye Exam: EOMI, Normal appearance, PERRL - ENT Exam ENT Exam: Mucous Membranes Moist - Neck Exam Neck Exam: Full ROM - Respiratory Exam Respiratory Exam: Clear to Ausculation Bilateral, NORMAL BREATHING PATTERN - Cardiovascular Exam Cardiovascular Exam: REGULAR RHYTHM - GI/Abdominal Exam GI & Abdominal Exam: Soft, Normal Bowel Sounds Assessment and Plan - Assessment and Plan (Free Text) Plan: 76 y/o woman with a PMHx of HTN, vertigo, chronic gastritis, depression, aortic stenosis admitted for dizziness and fall. Urine culture positive for resistant E. Coli (ESBL). 1. UTI - ESBL positive urine culture - Asymptomatic. - Urinalysis consistent w/ UTI in ED. Given Ceftriaxone 1 gm IV while on ER. - Urinary Cx showed ESBL growth. (on 01/18) - ID on Board. - Meropenem IV 500 mg IVPB Q8H. - F/u ID recommendations, repeated Urine Cx and blood Cx. 2. Dizziness and Fall - Chornic dizziness VS Vertigo. - Brain MRI showed NO acute intra-cranial process. - Echocardiogram: Normal LV systolic function. Aortic Valve Sclerosis. - Troponin neg x3. - EKG and TSH: WNL. - Orthostatic BP measurement - WNL. - XR lumbo-sacral: non-alarming with multilevel degenerative spondylosis with dextroscoliosis. - Carotid artery US showed minimal intimal thickening of both carotid arteries. - Head/Neck CTA did NOT report any alarming sign. - Neurology on board. - Physical therapy recommends therapy 3-5x per week for 1 week and d/c home with services. 3. HTN - Controlled w/ lisinopril 20 mg and nifedipine 90 mg at Home. - Nifedipine is being held due to dizziness and potential hypotensive side effect. - Currently only on lisinopril 20 mg PO at hospital. - f/u V.S. 4. Depression - controlled w/ Citalopram 20 mg - Depression screening was negative today. 5. Iron deficiency anemia - feosol 325 mg PO daily - colace 100 mg PO stool softener 6. GERD - Currently on Protonix 20 mg PO 7. Hypokalemia - Kdur 20 mg daily. - K+ today: 4.2-WNL (on 01/20). - f/u BMP. 8.Thyroid Nodule. -Carotid artery US showed bilateral thyroid nodules. Recommended dedicated Thyroid US examination. -Head and Neck CTA: Heterogeneous thyroid gland with multiple tiny low attenuation foci. Thyroid US recommended for further evaluation. -Will evaluate and manage as outpatient 9. DVT Prophylaxis - ASA 81 mg PO - lovenox 20 mg SC daily.
[2017-01-22] MEDS: Pantoprazole 20 mg EC Tab PO SCH (09:36)
[2017-01-22] MEDS: Potassium Chloride 20 mEq ER Tab PO SCH (09:36)
[2017-01-22] MEDS: Enoxaparin 40 mg Syringe SC SCH (09:37)
[2017-01-22 11:11] LABS: HEMATOCRIT 36.3 % (34.0-47.0); MEAN CORPUSCULAR HEMOGLOBIN 28.8 pg (27.0-31.0); MEAN CORPUSCULAR HGB CONC 33.1 g/dL (33.0-37.0); RED CELL DISTRIBUTION WIDTH 14.8 % (11.5-14.5); WHITE BLOOD COUNT 5.1 K/uL (4.8-10.8)
--- NOTE | 2017-01-22 13:36 | CP.PCM.PN ---
Subjective - Date & Time of Evaluation Date of Evaluation: 01/22/17 Time of Evaluation: 07:00 - Subjective Subjective: AFEB ON IV MERREM REPEAT CULTURES SENT CIPRO WOULD BE IDEAL HOWEVER DRUG INTERACTION PREVENTS THIS - QT PROLONG- CONSIDER D/C SSRI Objective - Vital Signs/Intake and Output Vital Signs (last 24 hours): Temp Pulse Resp BP Pulse Ox 98.3 F 67 18 124/75 99 01/22/17 12:00 01/22/17 12:00 01/22/17 12:00 01/22/17 12:00 01/22/17 12:00 - Medications Medications: Current Medications Acetaminophen (Tylenol 325mg Tab) 650 mg PO Q6 PRN PRN Reason: Pain, Mild (1-3) Last Admin: 01/19/17 17:19 Dose: 650 mg Aspirin (Aspirin Chewable) 81 mg PO DAILY [facility] Last Admin: 01/22/17 09:36 Dose: 81 mg Citalopram Hydrobromide (Celexa) 20 mg PO DAILY [facility] Last Admin: 01/22/17 09:36 Dose: 20 mg Docusate Sodium (Colace) 100 mg PO DAILY [facility] Last Admin: 01/22/17 09:36 Dose: 100 mg Enoxaparin Sodium (Lovenox) 40 mg SC DAILY [facility] PRN Reason: Protocol Last Admin: 01/22/17 09:37 Dose: 40 mg Ferrous Sulfate (Feosol) 325 mg PO DAILY [facility] Last Admin: 01/22/17 09:36 Dose: 325 mg Home Med (Memantine Hcl [Namenda Xr]) 1 cap PO DAILY [facility] Meropenem 500 mg/ Sodium (Chloride) 100 mls @ 100 mls/hr IVPB Q8 [facility] Last Admin: 01/22/17 09:40 Dose: 100 mls/hr Lisinopril (Zestril) 20 mg PO DAILY [facility] Last Admin: 01/22/17 09:37 Dose: 20 mg Pantoprazole Sodium (Protonix Ec Tab) 20 mg PO DAILY [facility] Last Admin: 01/22/17 09:36 Dose: 20 mg Potassium Chloride (K-Dur 20 Meq Er Tab) 20 meq PO DAILY [facility] Last Admin: 01/22/17 09:36 Dose: 20 meq - Labs Labs: 01/22/17 10:50 01/20/17 05:20 - Constitutional Appears: Non-toxic, Chronically Ill - Head Exam Head Exam: NORMOCEPHALIC - Eye Exam Eye Exam: PERRL. absent: Scleral icterus - ENT Exam ENT Exam: Mucous Membranes Dry - Neck Exam Neck Exam: absent: Lymphadenopathy - Respiratory Exam Respiratory Exam: Decreased Breath Sounds, Rhonchi - Cardiovascular Exam Cardiovascular Exam: REGULAR RHYTHM, +S1, +S2 - GI/Abdominal Exam GI & Abdominal Exam: Distended, Soft - Rectal Exam Rectal Exam: Deferred - Exam Exam: NORMAL INSPECTION - Extremities Exam Extremities Exam: absent: Pedal Edema - Back Exam Back Exam: absent: CVA tenderness (L), CVA tenderness (R) - Neurological Exam Neurological Exam: Alert, Awake Assessment and Plan (1) Frequent falls Status: Acute (2) Dizziness Status: Chronic (3) Abdominal pain Status: Acute (4) Anginal pain Status: Acute (5) Aortic stenosis Status: Acute (6) Arm pain, left Status: Acute (7) Chest pain Status: Acute
--- NOTE | 2017-01-22 18:42 | CARD ---
APPROVED REPORT EKG Measurement Heart [id number] <Conclusion> Normal sinus rhythm Normal ECG
--- NOTE | 2017-01-22 18:43 | CARD ---
APPROVED REPORT EKG Measurement Heart [id number] <Conclusion> Normal sinus rhythm Normal ECG
[2017-01-23] MEDS: Meropenem 500 MG in Sodium Chloride 0.9% 100 ML IVPB SCH ×2 (00:04→09:59)
[2017-01-23] MEDS: Pantoprazole 20 mg EC Tab PO SCH (09:59)
[2017-01-23] MEDS: Potassium Chloride 20 mEq ER Tab PO SCH (10:00)
[2017-01-23] MEDS: Enoxaparin 40 mg Syringe SC SCH (10:00)
--- NOTE | 2017-01-23 10:27 | CP.PCM.PN ---
Objective - Vital Signs/Intake and Output Vital Signs (last 24 hours): Temp Pulse Resp BP Pulse Ox 97.8 F 67 18 153/81 H 99 01/23/17 08:17 01/23/17 09:59 01/23/17 08:17 01/23/17 09:59 01/23/17 08:17 - Medications Medications: Current Medications Acetaminophen (Tylenol 325mg Tab) 650 mg PO Q6 PRN PRN Reason: Pain, Mild (1-3) Last Admin: 01/23/17 09:58 Dose: 650 mg Aspirin (Aspirin Chewable) 81 mg PO DAILY [facility] Last Admin: 01/23/17 10:00 Dose: 81 mg Citalopram Hydrobromide (Celexa) 20 mg PO DAILY [facility] Last Admin: 01/23/17 09:59 Dose: 20 mg Docusate Sodium (Colace) 100 mg PO DAILY [facility] Last Admin: 01/23/17 09:59 Dose: 100 mg Enoxaparin Sodium (Lovenox) 40 mg SC DAILY [facility] PRN Reason: Protocol Last Admin: 01/23/17 10:00 Dose: 40 mg Ferrous Sulfate (Feosol) 325 mg PO DAILY [facility] Last Admin: 01/23/17 09:59 Dose: 325 mg Home Med (Memantine Hcl [Namenda Xr]) 1 cap PO DAILY [facility] Meropenem 500 mg/ Sodium (Chloride) 100 mls @ 100 mls/hr IVPB Q8 [facility] Last Admin: 01/23/17 09:59 Dose: 100 mls/hr Lisinopril (Zestril) 20 mg PO DAILY [facility] Last Admin: 01/23/17 09:59 Dose: 20 mg Pantoprazole Sodium (Protonix Ec Tab) 20 mg PO DAILY [facility] Last Admin: 01/23/17 09:59 Dose: 20 mg Potassium Chloride (K-Dur 20 Meq Er Tab) 20 meq PO DAILY [facility] Last Admin: 01/23/17 10:00 Dose: 20 meq - Labs Labs: 01/22/17 10:50 01/20/17 05:20
--- NOTE | 2017-01-23 12:29 | CP.PCM.PCO ---
Assessment/Plan - Assessment and Plan (Free Text) Assessment: Spoek to Dr. Reshma BARNES to discharge on po Cipro x 5days will stop Celexa
--- NOTE | 2017-01-23 13:12 | CP.PCM.DIS ---
Provider - Provider Date of Admission: 01/18/17 15:13 Attending physician: Katheryn Aly MD Primary care physician: Dr Angelika Breaux Consults: ID- Dr Justice Time Spent in preparation of Discharge (in minutes): 25 Diagnosis - Discharge Diagnosis (1) ESBL (extended spectrum beta-lactamase) producing bacteria infection Status: Acute (2) Dizziness Status: Chronic Priority: Medium Hospital Course - Lab Results Lab Results: Micro Results 01/20/17 19:12 Urine,Clean Catch Urine Culture - Final No Growth (<1,000 CFU/ML) 01/20/17 19:45 Blood Blood Culture - Preliminary NO GROWTH AFTER 48 HOURS 01/20/17 19:30 Blood Blood Culture - Preliminary NO GROWTH AFTER 48 HOURS Most Recent Lab Values WBC 5.1 K/uL (4.8-10.8) 01/22/17 10:50 RBC 4.17 Mil/uL (3.80-5.20) 01/22/17 10:50 Hgb 12.0 g/dL (12.0-16.0) 01/22/17 10:50 Hct 36.3 % (34.0-47.0) 01/22/17 10:50 MCV 87.0 fl (81.0-99.0) 01/22/17 10:50 MCH 28.8 pg (27.0-31.0) 01/22/17 10:50 MCHC 33.1 g/dL (33.0-37.0) 01/22/17 10:50 RDW 14.8 % (11.5-14.5) H 01/22/17 10:50 Plt Count 175 K/uL (130-400) 01/22/17 10:50 MPV 8.7 fl (7.2-11.7) 01/18/17 06:45 Neut % (Auto) 51.2 % (50.0-75.0) 01/18/17 06:45 Lymph % (Auto) 35.0 % (20.0-40.0) 01/18/17 06:45 [place] % (Auto) 9.8 % (0.0-10.0) 01/18/17 06:45 Eos % (Auto) 3.5 % (0.0-4.0) 01/18/17 06:45 Baso % (Auto) 0.5 % (0.0-2.0) 01/18/17 06:45 Neut # 3.6 K/uL (1.8-7.0) 01/18/17 06:45 Lymph # 2.4 K/uL (1.0-4.3) 01/18/17 06:45 [place] # 0.7 K/uL (0.0-0.8) 01/18/17 06:45 Eos # 0.2 K/uL (0.0-0.7) 01/18/17 06:45 Baso # 0.0 K/uL (0.0-0.2) 01/18/17 06:45 Sodium 140 mmol/l (132-148) 01/20/17 05:20 Potassium 4.2 MMOL/L (3.6-5.0) 01/20/17 05:20 Chloride 105 mmol/L (98-107) 01/20/17 05:20 Carbon Dioxide 28 mmol/L (22-30) 01/20/17 05:20 Anion Gap 12 (10-20) 01/20/17 05:20 BUN 16 mg/dl (7-17) 01/20/17 05:20 Creatinine 0.9 mg/dL (0.7-1.2) 01/20/17 05:20 Est GFR ( Amer) > 60 01/20/17 05:20 Est GFR (Non-Af Amer) > 60 01/20/17 05:20 Random Glucose 91 mg/dL (65-105) 01/20/17 05:20 Calcium 9.3 mg/dL (8.4-10.2) 01/20/17 05:20 Total Bilirubin 0.3 mg/dl (0.2-1.3) 01/18/17 05:30 AST 26 U/L (14-36) 01/18/17 05:30 ALT 33 U/L (9-52) 01/18/17 05:30 Alkaline Phosphatase 88 U/L (38-126) 01/18/17 05:30 Troponin I < 0.0120 ng/mL (0.00-0.120) 01/18/17 19:26 Total Protein 6.3 G/DL (6.3-8.2) 01/18/17 05:30 Albumin 3.4 g/dL (3.5-5.0) L 01/18/17 05:30 Globulin 2.9 gm/dL (2.2-3.9) 01/18/17 05:30 Albumin/Globulin Ratio 1.2 (1.0-2.1) 01/18/17 05:30 Vitamin B12 718 pg/mL (239-931) 01/18/17 05:30 25-OH Vitamin D Total 29.6 NG/ML (30.0-100.0) L 01/18/17 05:30 Folate > 20.0 ng/mL 01/18/17 05:30 TSH 3rd Generation 3.76 mIU/ML (0.46-4.68) 01/18/17 05:30 Urine Color Straw (YELLOW) 01/20/17 19:12 Urine Clarity Clear (Clear) 01/20/17 19:12 Urine pH 6.0 (5.0-8.0) 01/20/17 19:12 Ur Specific [place] 1.011 (1.003-1.030) 01/20/17 19:12 Urine Protein Negative mg/dL (NEGATIVE) 01/20/17 19:12 Urine Glucose (UA) Neg mg/dL (Normal) 01/20/17 19:12 Urine Ketones Negative mg/dL (NEGATIVE) 01/20/17 19:12 Urine Blood Moderate (NEGATIVE) 01/20/17 19:12 Urine Nitrate Negative (NEGATIVE) 01/20/17 19:12 Urine Bilirubin Negative (NEGATIVE) 01/20/17 19:12 Urine Urobilinogen 0.2-1.0 mg/dL (0.2-1.0) 01/20/17 19:12 Ur Leukocyte Esterase Neg Stan/uL (Negative) 01/20/17 19:12 Urine RBC (Auto) 6 /hpf (0-3) H 01/20/17 19:12 Urine Microscopic WBC 1 /hpf (0-5) 01/20/17 19:12 Ur Squamous Epith Cells 2 /hpf (0-5) 01/20/17 19:12 Urine Bacteria Rare (<OCC) 01/18/17 05:05 Hyaline Casts 3-5 /hpf (0-2) H 01/18/17 05:05 - Hospital Course Hospital Course: 76 y/o woman w/ PMHx of HTN, vertigo, chronic gastritis, depression, dementia, and aortic stenosis was admitted for fall (4th in four months) and dizziness occurring daily. Pt observed having slight right end gaze nystagmus. Carotid artery US showed minimal intimal thickening of both carotid arteries. Head/Neck CTA: No evidence of plaque or significant stenosis. No evidence of dissection. Brain MRI showed NO acute intra-cranial process. Echocardiogram: Normal LV systolic function. Aortic Valve Sclerosis. Urine discovered to be +ESBL positive initially, Meropenem initiated. Follow up urine culture showed no growth. Regarding sensitivity report, pt was converted to Cipro 500mg PO Daily x5 days, as per ID. Pt advised NOT to take home med Celexa during the Cipro therapy until full day after completing the antibiotic. Other Home meds restarted. Discharge Exam - Head Exam Head Exam: ATRAUMATIC, NORMOCEPHALIC - Eye Exam Eye Exam: EOMI - ENT Exam ENT Exam: Mucous Membranes Moist - Neck Exam Neck exam: Full Rom - Respiratory Exam Respiratory Exam: Clear to PA & Lateral, NORMAL BREATHING PATTERN - Cardiovascular Exam Cardiovascular Exam: REGULAR RHYTHM, +S1, +S2 - GI/Abdominal Exam GI & Abdominal Exam: Normal Bowel Sounds, Soft - Neurological Exam Neurological exam: Alert, CN II-XII Intact, Normal Gait Discharge Plan - Discharge Medications Prescriptions: Ciprofloxacin [Cipro] 500 mg PO DAILY #5 tab - Follow Up Plan Condition: STABLE Disposition: HOME/ ROUTINE Additional Instructions: f/u w PMD Dr Breaux within 1 week of discharge Script for Cipro 500mg PO for 5 days to complete course for +ESBL do NOT home medication of Celexa until ONE full day after finishing Cipro return to ED if fevers/chills, severe dizziness, nausea, vomiting, diarrhea, or SOB occur
[2017-01-23 15:52] VITALS: BP 107/68; PULSE 77; RESP 20; TEMP 98.5; O2SAT 97
== END 2017-01-23 16:35 | disposition home health service (06) | DRG 149 ==
LOC: H.ER 22:46 → H.ERHOLD 01-18 01:50 → H.TEL 01-18 04:26 → OBSVTOIN 01-18 15:13
PROVIDERS: ADMIT Family Medicine; ATTEND Family Medicine
DX: H81.11 Benign paroxysmal vertigo, right ear (principal); N39.0 Urinary tract infection, site not specified; H93.19 Tinnitus, unspecified ear; B96.20 Unspecified Escherichia coli [E. coli] as the cause of diseases classified elsewhere; I35.0 Nonrheumatic aortic (valve) stenosis; F03.90 Unspecified dementia, unspecified severity, without behavioral disturbance, psychotic disturbance, mood disturbance, and anxiety; Z16.12 Extended spectrum beta lactamase (ESBL) resistance; E04.2 Nontoxic multinodular goiter; I10 Essential (primary) hypertension; E78.00 Pure hypercholesterolemia, unspecified; M06.9 Rheumatoid arthritis, unspecified; M81.0 Age-related osteoporosis without current pathological fracture; I20.9 Angina pectoris, unspecified; D50.9 Iron deficiency anemia, unspecified; K29.50 Unspecified chronic gastritis without bleeding; R29.6 Repeated falls; Z96.651 Presence of right artificial knee joint; Z79.82 Long term (current) use of aspirin

== ENCOUNTER 2018-03-15 12:46 | Emergency (ER) | payer MEDICARE, OTHER ==
[2018-03-15 12:47] VITALS: BMI 31.6
[2018-03-15 12:55] VITALS: RESP 18; TEMP 99.9
[2018-03-15 14:02] LABS: BASO # 0.1 K/uL (0.0-0.2); BASO % 0.9 % (0.0-2.0); EOS # 0.2 K/uL (0.0-0.7); EOS % 2.9 % (0.0-4.0); HEMOGLOBIN 12.9 g/dL (12.0-16.0); LYMPH # 2.5 K/uL (1.0-4.3); LYMPH % 35.4 % (20.0-40.0); MEAN CELL VOLUME 87.7 fl (81.0-99.0); MEAN CORPUSCULAR HEMOGLOBIN 29.5 pg (27.0-31.0); MEAN CORPUSCULAR HGB CONC 33.7 g/dL (33.0-37.0); MEAN PLATELET VOLUME 8.9 fl (7.2-11.7); MONO # 0.6 K/uL (0.0-0.8); MONO % 8.5 % (0.0-10.0); NEUT # 3.7 K/uL (1.8-7.0); NEUT % 52.3 % (50.0-75.0); NRBC % 0.3 % (0.0-0.0); RBC 4.35 Mil/uL (3.80-5.20); RED CELL DISTRIBUTION WIDTH 14.6 % (11.5-14.5); WHITE BLOOD COUNT 7.1 K/uL (4.8-10.8)
--- NOTE | 2018-03-15 14:04 | ED PDOC ---
HPI: Abdomen Time Seen by Provider: 03/15/18 13:03 Chief Complaint (Nursing): Abdominal Pain Chief Complaint (Provider): Abdominal Pain History Per: Patient History/Exam Limitations: no limitations Onset/Duration Of Symptoms: Days (x1), Intermittent Episodes Location Of Pain/Discomfort: Periumbilical Associated Symptoms: Constipation. denies: Fever, Vomiting, Diarrhea, Back Pain, Chest Pain, Urinary Symptoms Additional Complaint(s): 77 years old female with history of hypertension presents to ER for evaluation of intermittent periumbilical abdominal pain onset 1 day. Patient reports feeling constipated with one episode of difficult bowel movement today. She denies any vomiting, fever, urinary symptoms, back pain or chest pain. PMD:Bobby Breaux Past Medical History Reviewed: Historical Data, Nursing Documentation, Vital Signs Vital Signs: Last Vital Signs Temp 99.9 F H 03/15/18 12:50 Pulse 71 03/15/18 12:50 Resp 18 03/15/18 12:50 BP 150/85 03/15/18 12:50 Pulse Ox 98 03/15/18 12:50 - Medical History PMH: Anxiety, Arthritis, Dementia, Depression, Gastritis, HTN, Hype rcholesterolemia, Osteoporosis, Rheumatoid Arthritis Denies: Chronic Kidney Disease - Surgical History Surgical History: Cholecystectomy Other surgeries: Abdominal hernia - Family History Family History: States: Unknown Family Hx - Social History Current smoker - smoking cessation education provided: No Alcohol: Social Drugs: Denies - Home Medications Home Medications: Ambulatory Orders Medication Instructions Recorded RX: Calcium Carbonate [Caltrate] 600 mg PO DAILY 09/18/15 RX: Docusate [Colace] 100 mg PO DAILY 09/18/15 RX: Ferrous Sulfate [Ferosul] 325 mg PO DAILY 09/18/15 RX: Lisinopril [Zestril] 20 mg PO DAILY 09/18/15 RX: Memantine HCl [Namenda Xr] 1 cap PO DAILY 09/18/15 RX: Multivitamin/Iron/Folic Acid 1 tab PO DAILY 09/18/15 [Centrum Complete Multivit Tab] RX: NIFEdipine ER [Procardia XL] 90 mg PO DAILY 09/18/15 RX: Omeprazole [Prilosec] 20 mg PO DAILY 09/18/15 RX: Zolpidem Tartrate [Ambien] 5 mg PO HS 09/18/15 RX: Ondansetron ODT [Zofran ODT] 4 mg PO Q8 PRN #12 odt 10/06/15 RX: Aspirin [Ecotrin] 81 mg PO DAILY 11/21/15 RX: Oxycodone HCl/Acetaminophen 5 - 325 mg PO Q4 PRN 11/21/15 [Percocet 5-325 mg Tablet] RX: Meclizine [Meclizine*] 25 mg PO Q6 PRN #20 tab 12/01/15 RX: Alendronate [Fosamax] 70 mg PO ONCE 09/29/16 RX: Citalopram Hydrobromide 20 mg PO DAILY 09/29/16 [Celexa] RX: Loratadine [Allerclear] 10 mg PO DAILY 09/29/16 RX: Potassium Chloride [K-Dur 20 20 meq PO DAILY 09/29/16 mEq ER Tab] RX: traMADol [Ultram] 50 mg PO TID PRN #12 tab 10/30/16 RX: Diclofenac Sodium [Voltaren] 1 applic TOP DAILY 01/22/17 Ciprofloxacin [Cipro] 500 mg PO DAILY #5 tab 01/23/17 Famotidine [Pepcid] 20 mg PO DAILY PRN #6 tab 03/15/18 - Allergies Allergies/Adverse Reactions: Allergies Allergy/AdvReac Type Severity Reaction Status Date / Time No Known Allergies Allergy Verified 03/15/18 12:50 Review of Systems ROS Statement: Except As Marked, All Systems Reviewed And Found Negative Constitutional: Negative for: Fever Cardiovascular: Negative for: Chest Pain Gastrointestinal: Positive for: Abdominal Pain (periumbilical), Constipation. Negative for: Vomiting, Diarrhea, Hematochezia Genitourinary Female: Negative for: Dysuria, Hematuria Musculoskeletal: Negative for: Back Pain Physical Exam - Reviewed Nursing Documentation Reviewed: Yes Vital Signs Reviewed: Yes - Physical Exam Appears: Positive for: Non-toxic, No Acute Distress Head Exam: Positive for: ATRAUMATIC, NORMOCEPHALIC Skin: Positive for: Normal Color, Warm, Dry Eye Exam: Positive for: Normal appearance, EOMI, PERRL ENT: Positive for: Normal ENT Inspection Neck: Positive for: Normal, Painless ROM, Supple Cardiovascular/Chest: Positive for: Regular Rate, Rhythm. Negative for: Murmur Respiratory: Positive for: Normal Breath Sounds. Negative for: Wheezing Gastrointestinal/Abdominal: Positive for: Soft, Tenderness (mild to lower abdomen) Extremity: Positive for: Normal ROM. Negative for: Pedal Edema, Deformity Neurologic/Psych: Positive for: Alert, Oriented (x3) - Laboratory Results Result Diagrams: 03/15/18 13:50 03/15/18 13:50 - ECG O2 Sat by Pulse Oximetry: 98 (RA) Pulse Ox Interpretation: Normal Medical Decision Making Medical Decision Making: Time: 1319 Initial Impression: Abdominal pain and constipation. Differential includes but not limited to colitis, diverticulitis and UTI. Rule out SBO. Initial Plan: --CT Abdomen/Pelvis --BMP --Urine dipstick --CBC --Flomax --Urinalysis [address] Drake, pending CT Abdomen/Pelvis. Scribe Attestation: Documented by Cami Sanford, acting as a scribe for Sloane St MD. Provider Scribe Attestation: All medical record entries made by the Scribe were at my direction and personally dictated by me. I have reviewed the chart and agree that the record accurately reflects my personal performance of the history, physical exam, medical decision making, and the department course for this patient. I have also personally directed, reviewed, and agree with the discharge instructions and disposition. Disposition - Clinical Impression Clinical Impression: Abdominal pain - Patient ED Disposition Is Patient to be Admitted: Transfer of Care Counseled Patient/Family Regarding: Studies Performed, Diagnosis - Disposition Referrals: [facility] [Outside] - 03/16/18 Disposition: Transfer of Care Disposition Time: 16:00 Condition: STABLE Additional Instructions: Return if not better in 3 days. Prescriptions: Famotidine [Pepcid] 20 mg PO DAILY PRN #6 tab PRN Reason: Pain Instructions: Acute Abdomen (Belly Pain) Patient Signed Over To: Aaron Drake
[2018-03-15 14:13] LABS: SQUAMOUS EPITHIAL < 1 /hpf (0-5); URINE BACTERIA RARE (<OCC); URINE BILIRUBIN NEGATIVE (NEGATIVE); URINE CLARITY SLIGHTY-CLOUDY (Clear); URINE COLOR STRAW (YELLOW); URINE GLUCOSE (UA) NEG (Normal); URINE LEUKOCYTE ESTERASE NEG Leu/uL (Negative); URINE PROTEIN NEGATIVE (NEGATIVE); URINE UROBILINOGEN 0.2-1.0 mg/dL (0.2-1.0)
[2018-03-15 14:14] LABS: BLOOD UREA NITROGEN 21 mg/dl (7-17); CALCIUM 9.6 mg/dL (8.4-10.2); GFR NON-AFRICAN AMERICAN > 60
[2018-03-15 14:18] LABS: URINE BLOOD TRACE (NEGATIVE)
[2018-03-15] MEDS ORDERED: Sodium Chloride 0.9% 50 ML IV ONE (15:38)
[2018-03-15] MEDS ORDERED: Iohexol 300 100 ML IJ ONE (15:38)
--- NOTE | 2018-03-15 16:21 | CT ---
Date of service: 03/15/2018 PROCEDURE: CT Abdomen and Pelvis with contrast HISTORY: abdominal pain constipation COMPARISON: CT scan of the abdomen pelvis dated 09/01/2017. TECHNIQUE: Contrast dose: 90 mL Omnipaque 300 Radiation dose: Total exam DLP = 681.02 mGy-cm. This CT exam was performed using one or more of the following dose reduction techniques: Automated exposure control, adjustment of the mA and/or kV according to patient size, and/or use of iterative reconstruction technique. FINDINGS: LOWER THORAX: Unremarkable. LIVER: Unremarkable. No gross lesion or ductal dilatation. GALLBLADDER AND BILE DUCTS: Prior cholecystectomy with surgical clips in place. PANCREAS: Unremarkable. No gross lesion or ductal dilatation. SPLEEN: Unremarkable. ADRENALS: Unremarkable. No mass. KIDNEYS AND URETERS: 1.2 cm left lower pole cysts redemonstrated. No hydronephrosis. No solid mass. VASCULATURE: Unremarkable. No aortic aneurysm. No aortic atherosclerotic calcification or mural plaque present. BOWEL: Large hiatal hernia with intrathoracic stomach. No obstruction. No gross mural thickening. APPENDIX: Normal appendix. PERITONEUM: Small fat containing umbilical hernia. Amorphous cystic fluid collection near the left inguinal canal, likely a lymphocele related to prior herniorrhaphy. No free air. LYMPH NODES: Unremarkable. No enlarged lymph nodes. BLADDER: Unremarkable. REPRODUCTIVE: Unremarkable. BONES: No acute fracture. Stable T12 compression deformity. Spinal degenerative changes. OTHER FINDINGS: None. IMPRESSION: No acute abdominal pelvic pathology. Stable findings as above.
--- NOTE | 2018-03-15 16:42 | ED PDOC ---
- Laboratory Results Result Diagrams: 03/15/18 13:50 03/15/18 13:50 Interpretation Of Abn Labs: no acute - ECG O2 Sat by Pulse Oximetry: 98 (RA) - CT Scan/US ct Other Rad Studies (CT/US): Read By Radiologist Other Rad Interpretation: no acute - Progress ED Course And Treament: 1610: Took over care from Dr. St. Fu on ct. Pt. here with abd pain. 1641: Stable. AAOx3. Pain free. Tolerated PO. Fu with pcp. Disposition Counseled Patient/Family Regarding: Studies Performed, Diagnosis, Need For Followup, Rx Given - Clinical Impression Clinical Impression: Abdominal pain - POA Present On Arrival: None - Disposition Referrals: [facility] [Outside] - 03/16/18 Disposition: Routine/Home Disposition Time: 16:42 Condition: STABLE Additional Instructions: Return if not better in 3 days. Prescriptions: Famotidine [Pepcid] 20 mg PO DAILY PRN #6 tab PRN Reason: Pain Instructions: Acute Abdomen (Belly Pain)
[2018-03-15 17:11] VITALS: BP 148/90; PULSE 90
[2018-03-16 09:41] VITALS: O2SAT 98
== END 2018-03-15 17:10 | disposition home or self-care (01) ==
LOC: H.ER 12:46
DX: R10.9 Unspecified abdominal pain (principal); E78.00 Pure hypercholesterolemia, unspecified; F03.90 Unspecified dementia, unspecified severity, without behavioral disturbance, psychotic disturbance, mood disturbance, and anxiety; I10 Essential (primary) hypertension
CPT/HCPCS: 74177; 80048; 81003; 85025; 99284; Q9967

== ENCOUNTER 2018-06-10 17:07 | Observation (INO) | payer MEDICARE, OTHER ==
[2018-06-10 17:07] VITALS: BMI 31.6
--- NOTE | 2018-06-10 17:30 | ED PDOC ---
HPI: General Adult Time Seen by Provider: 06/10/18 17:19 Chief Complaint (Nursing): Trauma Chief Complaint (Provider): HEAD INJURY/NECK INJURY History Per: Patient (77 Y/O FEMALE H/O HTN HLD, HERE S/P FALL SECONDARY TO NEAR SYNCOPE TODAY. NOTES SHE FALL AND STRUCK HEAD. NO LOC. DENIES ANY NECK PAIN) Past Medical History Reviewed: Historical Data, Nursing Documentation, Vital Signs Vital Signs: Last Vital Signs Temp 98.9 F 06/10/18 17:12 Pulse 83 06/10/18 17:12 Resp 18 06/10/18 17:12 BP 150/97 H 06/10/18 17:12 Pulse Ox 98 06/10/18 17:12 - Medical History PMH: Anxiety, Arthritis, Dementia, Depression, Gastritis, HTN, Hypercholesterolemia, Osteoporosis, Rheumatoid Arthritis Denies: Chronic Kidney Disease - Surgical History Surgical History: Cholecystectomy - Family History Family History: States: Unknown Family Hx - Immunization History Hx Tetanus Toxoid Vaccination: No Hx Influenza Vaccination: Yes Hx Pneumococcal Vaccination: No - Home Medications Home Medications: Ambulatory Orders Medication Instructions Recorded Omeprazole [Prilosec] 20 mg PO DAILY 09/18/15 Zolpidem Tartrate [Ambien] 5 mg PO HS 09/18/15 Aspirin [Ecotrin] 81 mg PO DAILY 11/21/15 Alendronate [Fosamax] 70 mg PO QWK 09/29/16 Citalopram Hydrobromide [Celexa] 20 mg PO DAILY 09/29/16 Potassium Chloride [K-Dur 20 mEq 20 meq PO DAILY 09/29/16 ER Tab] Lisinopril [Zestril] 10 mg PO DAILY 06/10/18 Meloxicam [Mobic] 15 mg PO DAILY 06/10/18 Memantine HCl [Namenda Xr] 14 mg PO DAILY 06/10/18 Travoprost [Travatan Z] 1 drop EACHEYE HS 06/10/18 - Allergies Allergies/Adverse Reactions: Allergies Allergy/AdvReac Type Severity Reaction Status Date / Time No Known Allergies Allergy Verified 06/10/18 17:12 Review of Systems ROS Statement: Except As Marked, All Systems Reviewed And Found Negative Physical Exam - Reviewed Nursing Documentation Reviewed: Yes Vital Signs Reviewed: Yes - Physical Exam Appears: Positive for: Well, Non-toxic, No Acute Distress Head Exam: Positive for: NORMAL INSPECTION, NORMOCEPHALIC. Negative for: ATRAUMATIC (SWELLING HEAD LEFT FRONTAL REGION) Skin: Positive for: Normal Color, Warm, DRY Eye Exam: Positive for: EOMI, Normal appearance, PERRL ENT: Positive for: Normal ENT Inspection Neck: Positive for: Normal, Painless ROM Cardiovascular/Chest: Positive for: Regular Rate, Rhythm Respiratory: Positive for: CNT, Normal Breath Sounds Gastrointestinal/Abdominal: Positive for: Normal Exam, Soft Back: Positive for: Normal Inspection Extremity: Positive for: Normal ROM Neurologic/Psych: Positive for: Alert, Oriented - Laboratory Results Result Diagrams: 06/10/18 17:55 06/10/18 17:55 - ECG ECG Rhythm: Positive for: Sinus Rhythm (nsr 71 bpm; no ectopy no acute changes) O2 Sat by Pulse Oximetry: 98 - Progress ED Course And Treament: cxr IMPRESSION: No active disease. Large hiatal hernia. d/w Dr. Conteh. Patient admitted observation 23 hour for near syncope Disposition - Clinical Impression Clinical Impression: Near syncope, Head injury - Patient ED Disposition Is Patient to be Admitted: Yes - Disposition Disposition Time: 19:05 Condition: FAIR - Pt Status Changed To: Hospital Disposition Of: Observation
[2018-06-10 18:08] LABS: ALB/GLOB RATIO 1.2 (1.0-2.1); ALBUMIN 3.9 g/dL (3.5-5.0); ALT/SGPT 22 U/L (9-52); AST/SGOT 36 U/L (14-36); BLOOD UREA NITROGEN 24 mg/dl (7-17); CALCIUM 9.7 mg/dL (8.4-10.2); GFR NON-AFRICAN AMERICAN > 60
--- NOTE | 2018-06-10 18:26 | CT ---
Date of service: 06/10/2018 PROCEDURE: CT HEAD WITHOUT CONTRAST. HISTORY: HEAD INJURY COMPARISON: CT head dated 01/18/2017 TECHNIQUE: Axial computed tomography images were obtained through the head/brain without intravenous contrast. Radiation dose: Total exam DLP = 711.66 mGy-cm. This CT exam was performed using one or more of the following dose reduction techniques: Automated exposure control, adjustment of the mA and/or kV according to patient size, and/or use of iterative reconstruction technique. FINDINGS: HEMORRHAGE: No intracranial hemorrhage. BRAIN: No mass effect or edema. Atrophy. Chronic microvascular ischemic changes. VENTRICLES: Unremarkable. No hydrocephalus. CALVARIUM: Unremarkable. PARANASAL SINUSES: Unremarkable as visualized. No significant inflammatory changes. MASTOID AIR CELLS: Unremarkable as visualized. No inflammatory changes. OTHER FINDINGS: Left frontal scalp swelling. IMPRESSION: Left frontal scalp swelling. No calvarial fracture. No acute intracranial pathology or hemorrhage. Age-related changes. No significant interval change.
[2018-06-10 18:34] LABS: BASO % 0.3 % (0.0-2.0); EOS # 0.1 K/uL (0.0-0.7); EOS % 1.8 % (0.0-4.0); HEMOGLOBIN 12.4 g/dL (12.0-16.0); LYMPH # 1.9 K/uL (1.0-4.3); LYMPH % 31.6 % (20.0-40.0); MEAN CORPUSCULAR HEMOGLOBIN 28.6 pg (27.0-31.0); MEAN CORPUSCULAR HGB CONC 32.5 g/dL (33.0-37.0); MEAN PLATELET VOLUME 9.1 fl (7.2-11.7); MONO # 0.5 K/uL (0.0-0.8); MONO % 8.2 % (0.0-10.0); NEUT # 3.5 K/uL (1.8-7.0); NEUT % 58.1 % (50.0-75.0); NRBC % 0.1 % (0.0-0.0); RBC 4.34 Mil/uL (3.80-5.20); RED CELL DISTRIBUTION WIDTH 14.4 % (11.5-14.5)
--- NOTE | 2018-06-10 18:35 | RAD ---
Date of service: 06/10/2018 HISTORY: ROUTINE COMPARISON: Chest radiograph dated 09/22/2016. FINDINGS: LUNGS: No active pulmonary disease. PLEURA: No significant pleural effusion identified, no pneumothorax apparent. CARDIOVASCULAR: Aortic atherosclerotic calcifications. Cardiomediastinal silhouette stably enlarged. OSSEOUS STRUCTURES: Unchanged. VISUALIZED UPPER ABDOMEN: Large hiatal hernia. Upper quadrant surgical clips. OTHER FINDINGS: None. IMPRESSION: No active disease. Large hiatal hernia.
--- NOTE | 2018-06-10 18:41 | CT ---
Date of service: 06/10/2018 PROCEDURE: CT ORBITS WITHOUT CONTRAST. HISTORY: R/O FX COMPARISON: CT orbits dated 10/30/2016. TECHNIQUE: Axial CT images of the orbits were obtained. Coronal and sagittal reformats were generated. Radiation dose: Total exam DLP = 687.83 mGy-cm. This CT exam was performed using one or more of the following dose reduction techniques: Automated exposure control, adjustment of the mA and/or kV according to patient size, and/or use of iterative reconstruction technique. FINDINGS: RIGHT ORBIT: RIGHT BONY ORBIT: Normal. RIGHT INTRAORBITAL STRUCTURES: Globe: Normal. Extraocular muscles: Normal. Post septal space: Normal. Optic Nerve: Normal. Lacrimal Apparatus: Normal. RIGHT PRESEPTAL SOFT TISSUES: Normal. LEFT ORBIT: LEFT BONY ORBIT: Old fracture of the lateral wall. LEFT INTRAORBITAL STRUCTURES: Globe: Normal. Extraocular muscles: Normal. Post septal space: Normal Optic Nerve: Normal. . Lacrimal Apparatus: Normal. LEFT PRESEPTAL SOFT TISSUES: Normal. OTHER: Old left zygoma fracture. IMPRESSION: Mild left frontal soft tissue swelling. No acute calvarial fracture.
--- NOTE | 2018-06-10 18:42 | CT ---
Date of service: 06/10/2018 PROCEDURE: CT Cervical Spine without contrast HISTORY: R/O FX COMPARISON: None available. TECHNIQUE: Axial computed tomography images were obtained of the cervical spine without the use of intravenous contrast. Coronal and sagittal reformatted images were created and reviewed. Radiation dose: Total exam DLP = 325.93 mGy-cm. This CT exam was performed using one or more of the following dose reduction techniques: Automated exposure control, adjustment of the mA and/or kV according to patient size, and/or use of iterative reconstruction technique. FINDINGS: VERTEBRAE: No fracture. Normal alignment. No destructive bony lesion. DISCS/SPINAL CANAL/NEURAL FORAMINA: No significant central canal or neural foraminal stenosis. Discs heights are grossly preserved. PARASPINAL SOFT TISSUES: Unremarkable. OTHER FINDINGS: The thyroid gland is heterogeneous mildly enlarged contains multiple small nodules. IMPRESSION: No evidence of acute fracture or subluxation. Heterogeneous mildly enlarged thyroid gland contains small nodules.
[2018-06-10] MEDS ORDERED: ALENDRONATE 70 MG TAB PO SCH (20:00)
--- NOTE | 2018-06-10 20:44 | CP.PCM.HP ---
<Domingo Castorena - Last Filed: 06/10/18 20:13> History of Present Illness - History of Present Illness History of Present Illness: 77 y/o F with a PMHx of HTN, vertigo, mild dementia, Aortic Stenosis and depression presented to ED due her 12th episode of falling in 2 years. Pt reports she was in her kitchen, when she went to olive picker something from the floor, felt a little dizzy, fell on the floor, head hit the floor first, then she was not able to get up by herself due to b/l leg weakness, had to crawl on her gluteus into the living room in order to make a phone call to 911. Pt report s she did NOT lose consciousness, no seizure-like episode, no loss of bladder control. Pt denies visual disturbances, chest pain, SOB, palpitations, nausea, vomiting, abdominal pain. --Pt reports 11 similar episode in the past. Pt usually feels dizzy, falls and has generalized weakness. --On chart review, admission on 01/2017 for similar episode: Carotid artery US showed minimal intimal thickening of both carotid arteries; Head/Neck CTA: NO evidence of plaque or significant stenosis, NO evidence of dissection. Brain MRI showed NO acute intra-cranial process. Echocardiogram: Normal LV systolic function and Aortic Valve Sclerosis. PCP: Dr Bobby Breaux -[facility] -Meds: Omeprzole 20mg PO daily, K-Dur 20mEq PO daily, Aspirin 81mg PO daily, Loratadine 10mg PO daily, Meclizine 25mg PRN, Feosol 325 PO daily, Citalopram 20mg PO daily, Zolpidem 5mg QHS, Alendronate 70mg Qweekly. -PMHx: HTN, depression, osteoporosis, vertigo, chronic gastritis, Dementia, aortic stenosis, iron deficiency anemia -PSHx:R knee replacement 2013, lap cholecystectomy 2014, left hernia repair 2014, bilateral cataract surgery 11/2016 -SHx: lives alone, daughter works at [employer] but takes care of patient on weekends. Never smoker, NO alcohol and NO rec drugs. At ED: --Vital signs: WNL except for BP 150/97 --CBC and CMP were unremarkable. --Head CT: L frontal scalp swelling, no fracture and intra-cranial pathology/hemorrhage. --Orbits and facial CT: mild left frontal soft tissue swelling. --Cervical spine CT: no acute fracture or subluxation, mildly enlarge thyroid gland with small nodules. --CXR: no active disease, large hiatal hernia. Present on Admission - Present on Admission Any Indicators Present on Admission: No Review of Systems - Constitutional Constitutional: absent: Chills, Fever, Malaise, Other - EENT Eyes: absent: Change in Vision Nose/Mouth/Throat: absent: Nasal Congestion, Sore Throat, Neck Pain, Neck Mass - Cardiovascular Cardiovascular: absent: Chest Pain, Chest Pain at Rest, Dyspnea - Respiratory Respiratory: absent: Cough, Dyspnea, Hemoptysis - Gastrointestinal Gastrointestinal: absent: Abdominal Pain, Diarrhea, Hematemesis, Nausea, Vomi ting - Genitourinary Genitourinary: absent: Dysuria, Flank Pain, Hematuria Past Patient History - Infectious Disease Hx of Infectious Diseases: None - Past Medical History & Family History Past Medical History?: Yes - Past Social History Smoking Status: Never Smoked - CARDIAC Hx Hypercholesterolemia: Yes Hx Hypertension: Yes - PULMONARY Hx Respiratory Disorders: No - NEUROLOGICAL Hx Dementia: Yes - HEENT Hx HEENT Problems: Yes Hx Cataracts: Yes (RIGHT EYE) - RENAL Hx Chronic Kidney Disease: No - ENDOCRINE/METABOLIC Hx Endocrine Disorders: No - HEMATOLOGICAL/ONCOLOGICAL Hx Blood Disorders: No Hx Blood Transfusions: No - INTEGUMENTARY Hx Dermatological Problems: No - MUSCULOSKELETAL/RHEUMATOLOGICAL Hx Arthritis: Yes Hx Osteoporosis: Yes Hx Rheumatoid Arthritis: Yes - GASTROINTESTINAL Hx Gastritis: Yes - GENITOURINARY/GYNECOLOGICAL Hx Genitourinary Disorders: No - PSYCHIATRIC Hx Anxiety: Yes Hx Depression: Yes - SURGICAL HISTORY Hx Cholecystectomy: Yes - ANESTHESIA Hx Anesthesia: Yes Hx Anesthesia Reactions: No Meds Allergies/Adverse Reactions: Allergies Allergy/AdvReac Type Severity Reaction Status Date / Time No Known Allergies Allergy Verified 06/10/18 17:12 Physical Exam - Constitutional Appears: Well, No Acute Distress - Head Exam Head Exam: NORMOCEPHALIC. absent: ATRAUMATIC (Presence of ~5-6cm diameter superficial tender hematoma on L frontal area. ) - Eye Exam Eye Exam: EOMI, Normal appearance, PERRL - ENT Exam ENT Exam: Mucous Membranes Moist - Neck Exam Neck exam: Positive for: Full Rom, Normal Inspection. Negative for: Lymphadenopathy, Meningismus - Respiratory Exam Respiratory Exam: NORMAL BREATHING PATTERN. absent: Rales, Rhonchi, Wheezes, Respiratory Distress - Cardiovascular Exam Cardiovascular Exam: REGULAR RHYTHM, +S1, +S2 - GI/Abdominal Exam GI & Abdominal Exam: Soft. absent: Distended, Guarding, Rebound, Rigid, Tenderness - Extremities Exam Extremities exam: Positive for: full ROM, normal inspection. Negative for: calf tenderness - Neurological Exam Neurological exam: Alert, Oriented x3 - Psychiatric Exam Psychiatric exam: Normal Affect Results - Vital Signs Recent Vital Signs: Last Vital Signs Temp 98.9 F 06/10/18 17:12 Pulse 83 06/10/18 17:12 Resp 18 06/10/18 17:12 BP 150/97 H 06/10/18 17:12 Pulse Ox 98 06/10/18 19:06 - Labs Result Diagrams: 06/10/18 17:55 06/10/18 17:55 Labs: Laboratory Results - last 24 hr 06/10/18 06/10/18 06/10/18 17:50 17:55 17:55 WBC 6.0 RBC 4.34 Hgb 12.4 Hct 38.2 MCV 88.0 MCH 28.6 MCHC 32.5 L RDW 14.4 Plt Count 172 MPV 9.1 Neut % (Auto) 58.1 Lymph % (Auto) 31.6 [place] % (Auto) 8.2 Eos % (Auto) 1.8 Baso % (Auto) 0.3 Neut # (Auto) 3.5 Lymph # (Auto) 1.9 [place] # (Auto) 0.5 Eos # (Auto) 0.1 Baso # (Auto) 0.0 Sodium 136 Potassium 4.2 Chloride 108 H Carbon Dioxide 23 Anion Gap 9 L BUN 24 H Creatinine 0.8 Est GFR ( Amer) > 60 Est GFR (Non-Af Amer) > 60 POC Glucose (mg/dL) 142 H Random Glucose 124 H Calcium 9.7 Magnesium 1.9 Total Bilirubin 0.3 AST 36 D ALT 22 Alkaline Phosphatase 103 Troponin I < 0.0120 Total Protein 7.1 Albumin 3.9 Globulin 3.2 Albumin/Globulin Ratio 1.2 Assessment & Plan - Assessment and Plan (Free Text) Assessment: 77 y/o F with a PMHx of HTN, Vertigo, Chronic Gastritis, Depression, Dementia, Aortic Stenosis admitted for evaluation and management of pre-syncope and loss of balance. --Head CT: L frontal scalp swelling, no fracture and intra-cranial pathology/hemorrhage. PLAN: >Pre-syncopal episode/Multiple Falls/Loss of balance --Afebrile, stable --Unremarkable Head CT. --On 01/2017, unremrakable results fro Head CT, MRI of brain, US b/l carotids --Orthostatic BP ordered. --Neuro checks, --PT Evaluation --Neurology consult, Dr Dover. --F/U AM labs. >Essential HTN/Aortic Stenosis --Home meds resumed --Heart Healthy diet >Hx of Depression --Home meds resumed >Dementia, mild --Home meds resumed >Chronic Gastritis --Home meds resumed >DVT Prophylaxis --SCD's --No Lovenox due to frontal superficial small hematoma. Case discussed with Dr Wero Smith PGY-2 - Date & Time Date: 06/10/18 Time: 21:13 <Ed Conteh - Last Filed: 06/11/18 09:46> Results - Vital Signs Recent Vital Signs: Last Vital Signs Temp 98.2 F 06/11/18 09:04 Pulse 65 06/11/18 09:04 Resp 20 06/11/18 09:04 BP 122/80 06/11/18 09:04 Pulse Ox 98 06/11/18 09:04 - Labs Result Diagrams: 06/11/18 04:30 06/11/18 04:30 Labs: Laboratory Results - last 24 hr 06/10/18 06/10/18 06/10/18 17:50 17:55 17:55 WBC 6.0 RBC 4.34 Hgb 12.4 Hct 38.2 MCV 88.0 MCH 28.6 MCHC 32.5 L RDW 14.4 Plt Count 172 MPV 9.1 Neut % (Auto) 58.1 Lymph % (Auto) 31.6 [place] % (Auto) 8.2 Eos % (Auto) 1.8 Baso % (Auto) 0.3 Neut # (Auto) 3.5 Lymph # (Auto) 1.9 [place] # (Auto) 0.5 Eos # (Auto) 0.1 Baso # (Auto) 0.0 Sodium 136 Potassium 4.2 Chloride 108 H Carbon Dioxide 23 Anion Gap 9 L BUN 24 H Creatinine 0.8 Est GFR ( Amer) > 60 Est GFR (Non-Af Amer) > 60 POC Glucose (mg/dL) 142 H Random Glucose 124 H Calcium 9.7 Magnesium 1.9 Total Bilirubin 0.3 AST 36 D ALT 22 Alkaline Phosphatase 103 Troponin I < 0.0120 Total Protein 7.1 Albumin 3.9 Globulin 3.2 Albumin/Globulin Ratio 1.2 Vitamin B12 06/11/18 06/11/18 04:30 04:30 WBC 5.9 RBC 4.05 Hgb 11.6 L Hct 35.0 MCV 86.3 MCH 28.7 MCHC 33.3 RDW 14.3 Plt Count 160 MPV Neut % (Auto) Lymph % (Auto) [place] % (Auto) Eos % (Auto) Baso % (Auto) Neut # (Auto) Lymph # (Auto) [place] # (Auto) Eos # (Auto) Baso # (Auto) Sodium 138 Potassium 3.8 Chloride 106 Carbon Dioxide 25 Anion Gap 11 BUN 18 H Creatinine 0.8 Est GFR ( Amer) > 60 Est GFR (Non-Af Amer) > 60 POC Glucose (mg/dL) Random Glucose 89 Calcium 9.2 Magnesium Total Bilirubin AST ALT Alkaline Phosphatase Troponin I Total Protein Albumin Globulin Albumin/Globulin Ratio Vitamin B12 782 Attending/Attestation - Attestation I have personally seen and examined this patient.: Yes I have fully participated in the care of the patient.: Yes I have reviewed all pertinent clinical information: Yes Notes (Text): 06/11/18 09:45 Patient seen and examined with resident. Case discussed and agreed with assessment and plan of management.
[2018-06-11 06:37] LABS: HEMOGLOBIN 11.6 g/dL (12.0-16.0); MEAN CELL VOLUME 86.3 fl (81.0-99.0); MEAN CORPUSCULAR HEMOGLOBIN 28.7 pg (27.0-31.0); MEAN CORPUSCULAR HGB CONC 33.3 g/dL (33.0-37.0); RBC 4.05 Mil/uL (3.80-5.20); RED CELL DISTRIBUTION WIDTH 14.3 % (11.5-14.5); WHITE BLOOD COUNT 5.9 K/uL (4.8-10.8)
[2018-06-11 06:52] LABS: BLOOD UREA NITROGEN 18 mg/dl (7-17); CALCIUM 9.2 mg/dL (8.4-10.2); GFR NON-AFRICAN AMERICAN > 60
[2018-06-11] MEDS ORDERED: Enoxaparin 40 mg Syringe SC SCH (09:00)
[2018-06-11] MEDS ORDERED: Potassium Chloride 20 mEq ER Tab PO SCH (09:00)
[2018-06-11] MEDS ORDERED: MEMANTINE HCL 14 MG PO SCH (09:00)
[2018-06-11] MEDS ORDERED: Pantoprazole 20 mg EC Tab PO SCH (09:00)
[2018-06-11 09:04] VITALS: RESP 20; O2SAT 98
--- NOTE | 2018-06-11 10:59 | CP.PCM.DIS ---
Provider - Provider Date of Admission: 06/10/18 19:07 Attending physician: Ed Conteh MD Time Spent in preparation of Discharge (in minutes): 35 Diagnosis - Discharge Diagnosis (1) Status post fall Status: Resolved (2) Head injury Status: Resolved Hospital Course - Lab Results Lab Results: Most Recent Lab Values WBC 5.9 K/uL (4.8-10.8) 06/11/18 04:30 RBC 4.05 Mil/uL (3.80-5.20) 06/11/18 04:30 Hgb 11.6 g/dL (12.0-16.0) L 06/11/18 04:30 Hct 35.0 % (34.0-47.0) 06/11/18 04:30 MCV 86.3 fl (81.0-99.0) 06/11/18 04:30 MCH 28.7 pg (27.0-31.0) 06/11/18 04:30 MCHC 33.3 g/dL (33.0-37.0) 06/11/18 04:30 RDW 14.3 % (11.5-14.5) 06/11/18 04:30 Plt Count 160 K/uL (130-400) 06/11/18 04:30 MPV 9.1 fl (7.2-11.7) 06/10/18 17:55 Neut % (Auto) 58.1 % (50.0-75.0) 06/10/18 17:55 Lymph % (Auto) 31.6 % (20.0-40.0) 06/10/18 17:55 [place] % (Auto) 8.2 % (0.0-10.0) 06/10/18 17:55 Eos % (Auto) 1.8 % (0.0-4.0) 06/10/18 17:55 Baso % (Auto) 0.3 % (0.0-2.0) 06/10/18 17:55 Neut # (Auto) 3.5 K/uL (1.8-7.0) 06/10/18 17:55 Lymph # (Auto) 1.9 K/uL (1.0-4.3) 06/10/18 17:55 [place] # (Auto) 0.5 K/uL (0.0-0.8) 06/10/18 17:55 Eos # (Auto) 0.1 K/uL (0.0-0.7) 06/10/18 17:55 Baso # (Auto) 0.0 K/uL (0.0-0.2) 06/10/18 17:55 Sodium 138 mmol/l (132-148) 06/11/18 04:30 Potassium 3.8 MMOL/L (3.6-5.0) 06/11/18 04:30 Chloride 106 mmol/L (98-107) 06/11/18 04:30 Carbon Dioxide 25 mmol/L (22-30) 06/11/18 04:30 Anion Gap 11 (10-20) 06/11/18 04:30 BUN 18 mg/dl (7-17) H 06/11/18 04:30 Creatinine 0.8 mg/dl (0.7-1.2) 06/11/18 04:30 Est GFR ( Amer) > 60 06/11/18 04:30 Est GFR (Non-Af Amer) > 60 06/11/18 04:30 POC Glucose (mg/dL) 142 mg/dL (65-110) H 06/10/18 17:50 Random Glucose 89 mg/dL (65-105) 06/11/18 04:30 Calcium 9.2 mg/dL (8.4-10.2) 06/11/18 04:30 Magnesium 1.9 MG/DL (1.6-2.3) 06/10/18 17:55 Total Bilirubin 0.3 mg/dl (0.2-1.3) 06/10/18 17:55 AST 36 U/L (14-36) D 06/10/18 17:55 ALT 22 U/L (9-52) 06/10/18 17:55 Alkaline Phosphatase 103 U/L (38-126) 06/10/18 17:55 Troponin I < 0.0120 ng/mL (0.00-0.120) 06/10/18 17:55 Total Protein 7.1 G/DL (6.3-8.2) 06/10/18 17:55 Albumin 3.9 g/dL (3.5-5.0) 06/10/18 17:55 Globulin 3.2 gm/dL (2.2-3.9) 06/10/18 17:55 Albumin/Globulin Ratio 1.2 (1.0-2.1) 06/10/18 17:55 Vitamin B12 782 pg/mL (239-931) 06/11/18 04:30 - Hospital Course Hospital Course: 77 y/o F with a PMHx of HTN, vertigo, Mild dementia, Thyroid nodules, Aortic Sclerosis and depression brought to hospital after falling and injuring her head. States she tripped on the table legs. Denies any lightheadedness or dizziness preceding the event. She also denied gait instability, numbness/tingling, motor weakness, or blurry vision. She had a Head/Neck CT completed which was significant for frontal scalp swelling, and no fracture and intra-cranial pathology/hemorrhage. Orbit and facial CT was significant for mildly enlarged with multiple subcentimeter nodules. Pt was evaluated this morning at the bedside with Dr. Gay. Was seen walking comfortably throughout the halls without any assistance. No events were noted on track maintainer and her BP remained stable. n chart review, admission on 01/2017 for similar episode: Carotid artery US showed minimal intimal thickening of both carotid arteries; Head/Neck CTA: NO evidence of plaque or significant stenosis, NO evidence of dissection. Brain MRI showed NO acute intra-cranial process. Echocardiogram: Normal LV systolic function and Aortic Valve Sclerosis. Pt was diagnosed as mechanical fall and was stable for discharge home. TSH ordered given thyroid nodules and can be followed up outpatient. Discharge Exam - Head Exam Head Exam: NORMOCEPHALIC. absent: ATRAUMATIC (Presence of ~5-6cm diameter superficial tender hematoma on L frontal area. ) Additional comments: Left frontal head swelling, minimal tenderness - Eye Exam Eye Exam: Normal appearance - ENT Exam ENT Exam: Mucous Membranes Moist - Neck Exam Additional comments: No thyromegaly, no palpable nodules - Respiratory Exam Respiratory Exam: Clear to PA & Lateral. absent: Rhonchi, Wheezes - Cardiovascular Exam Cardiovascular Exam: REGULAR RHYTHM, +S1, +S2. absent: Systolic Murmur - Extremities Exam Extremities exam: normal inspection - Back Exam Back exam: NORMAL INSPECTION - Neurological Exam Neurological exam: Alert, Normal Gait, Oriented x3 - Psychiatric Exam Psychiatric exam: Normal Affect - Skin Skin Exam: Normal Color Discharge Plan - Follow Up Plan Condition: FAIR Disposition: HOME/ ROUTINE
[2018-06-11 13:53] VITALS: BP 114/71; PULSE 68; TEMP 98.4
--- NOTE | 2018-06-11 19:29 | CARD ---
APPROVED REPORT Date of service: 06/10/2018 EKG Measurement Heart [id number] <Conclusion> Normal sinus rhythm Normal ECG
== END 2018-06-11 14:40 | disposition home or self-care (01) ==
LOC: H.ER 17:07 → H.ERHOLD 19:07 → H.TEL 21:27
DX: S09.90XA Unspecified injury of head, initial encounter (principal); W18.30XA Fall on same level, unspecified, initial encounter; Z79.1 Long term (current) use of non-steroidal anti-inflammatories (NSAID); Z79.82 Long term (current) use of aspirin; Z90.49 Acquired absence of other specified parts of digestive tract; Z96.651 Presence of right artificial knee joint; D50.9 Iron deficiency anemia, unspecified; F41.9 Anxiety disorder, unspecified; H26.9 Unspecified cataract; I70.0 Atherosclerosis of aorta; K29.50 Unspecified chronic gastritis without bleeding; M19.90 Unspecified osteoarthritis, unspecified site; W19.XXXA Unspecified fall, initial encounter; R55 Syncope and collapse; E04.2 Nontoxic multinodular goiter; E78.00 Pure hypercholesterolemia, unspecified; F03.90 Unspecified dementia, unspecified severity, without behavioral disturbance, psychotic disturbance, mood disturbance, and anxiety; F32.9 Major depressive disorder, single episode, unspecified; I10 Essential (primary) hypertension; I35.0 Nonrheumatic aortic (valve) stenosis; K44.9 Diaphragmatic hernia without obstruction or gangrene; M06.9 Rheumatoid arthritis, unspecified; M81.0 Age-related osteoporosis without current pathological fracture
CPT/HCPCS: 36415; 70450; 70480; 71045; 72125; 80048; 80053; 82607; 82948; 83036; 83735; 84443; 84484; 85025; 85027; 86592; 93005; 99285; G0378

== ENCOUNTER 2018-08-10 21:00 | Emergency (ER) | payer MEDICARE, OTHER ==
[2018-08-10 21:01] VITALS: BMI 31.6
[2018-08-10] MEDS ORDERED: Iohexol 240 (50 ml) PO ONE (21:28)
[2018-08-10] MEDS ORDERED: Sodium Chloride 0.9% 1,000 ML IV STA (21:29)
--- NOTE | 2018-08-10 21:45 | ED PDOC ---
HPI: Abdomen Time Seen by Provider: 08/10/18 21:00 Chief Complaint (Nursing): Abdominal Pain Chief Complaint (Provider): Abdominal Pain History Per: Patient, Engineering Recruiter (Swazi #[id number] used temporarily, but discontinued because patient revelaed she spoke Montenegrin) History/Exam Limitations: no limitations Onset/Duration Of Symptoms: Days (x1) Current Symptoms Are (Timing): Still Present Additional Complaint(s): 77 year old female with pmhx of hernia repair and cholecystectomy presents to the ED for evaluation of worsening lower abdominal pain for the past day. Pat ient otherwise denies nausea, vomiting, diarrhea, and any other complaints. PMD: Bobby Breaux Past Medical History Reviewed: Historical Data, Nursing Documentation, Vital Signs Vital Signs: Last Vital Signs Temp 97.8 F 08/10/18 21:03 Pulse 72 08/10/18 21:03 Resp 16 08/10/18 21:03 BP 149/98 H 08/10/18 21:03 Pulse Ox 99 08/10/18 21:03 - Medical History PMH: Anxiety, Arthritis, Dementia, Depression, Gastritis, HTN, Hypercholesterolemia, Osteoporosis, Rheumatoid Arthritis Denies: Chronic Kidney Disease - Surgical History Surgical History: Cholecystectomy Other surgeries: hernia repair - Family History Family History: States: Unknown Family Hx - Social History Current smoker - smoking cessation education provided: No Alcohol: None Drugs: Denies - Immunization History Hx Tetanus Toxoid Vaccination: No Hx Influenza Vaccination: Yes Hx Pneumococcal Vaccination: No - Home Medications Home Medications: Ambulatory Orders Medication Instructions Recorded Omeprazole [Prilosec] 20 mg PO DAILY 09/18/15 Zolpidem Tartrate [Ambien] 5 mg PO HS 09/18/15 Aspirin [Ecotrin] 81 mg PO DAILY 11/21/15 Alendronate [Fosamax] 70 mg PO QWK 09/29/16 Citalopram Hydrobromide [Celexa] 20 mg PO DAILY 09/29/16 Potassium Chloride [K-Dur 20 mEq 20 meq PO DAILY 09/29/16 ER Tab] Lisinopril [Zestril] 10 mg PO DAILY 06/10/18 Meloxicam [Mobic] 15 mg PO DAILY 06/10/18 Memantine HCl [Namenda Xr] 14 mg PO DAILY 06/10/18 Travoprost [Travatan Z] 1 drop EACHEYE HS 06/10/18 - Allergies Allergies/Adverse Reactions: Allergies Allergy/AdvReac Type Severity Reaction Status Date / Time No Known Allergies Allergy Verified 08/10/18 21:03 Review of Systems ROS Statement: Except As Marked, All Systems Reviewed And Found Negative Gastrointestinal: Positive for: Abdominal Pain (lower). Negative for: Nausea, Vomiting, Diarrhea Physical Exam - Reviewed Nursing Documentation Reviewed: Yes Vital Signs Reviewed: Yes - Physical Exam Appears: Positive for: No Acute Distress Head Exam: Positive for: ATRAUMATIC, NORMOCEPHALIC Skin: Positive for: Normal Color, Warm. Negative for: Rash Eye Exam: Positive for: Normal appearance Neck: Positive for: Normal, Painless ROM, Supple Cardiovascular/Chest: Positive for: Regular Rate, Rhythm Respiratory: Positive for: Normal Breath Sounds. Negative for: Respiratory Distress Gastrointestinal/Abdominal: Positive for: Soft, Tenderness (lower abdominal quadrants, right greater than left). Negative for: Guarding, Rebound Back: Positive for: Normal Inspection Extremity: Negative for: Calf Tenderness (or swelling bilaterally) Neurological/Psych: Positive for: Awake, Alert, Oriented (x3) - Laboratory Results Result Diagrams: 08/10/18 22:15 08/10/18 22:15 - ECG O2 Sat by Pulse Oximetry: 99 (RA) Pulse Ox Interpretation: Normal Medical Decision Making Medical Decision Making: Time: 2127 Initial Impression: lower abdominal pain rule out hernia, appendicitis, electrolyte abnormality Initial Plan: --CT abd/pelvis with PO and IV contrast --CMP --Morphine 2mg IV --Normal saline IV --Iohexol 50ml PO --Blood culture --Urine culture --Urinalysis --Reevaluation 23:55 CT Abdomen Pelvis w/ contrast COMPARISON: 03/15/2018. CT abdomen and pelvis TECHNIQUE: Intravenous contrast dose: 95 cc Omnipaque 300. Radiation dose: Total exam DLP = <inf_radiation_dlp> mGy-cm. This CT exam was performed using one or more of the following dose reduction techniques: Automated exposure control, adjustment of the mA and/or kV according to patient size, and/or use of iterative reconstruction technique. FINDINGS: LOWER THORAX: Unremarkable. LIVER: Unremarkable. No gross lesion or ductal dilatation. GALLBLADDER AND BILE DUCTS: Status post cholecystectomy. No abnormality is seen in the gallbladder fossa. PANCREAS: Unremarkable. No gross lesion or ductal dilatation. SPLEEN: Unremarkable. ADRENALS: Unremarkable. No mass. KIDNEYS AND URETERS: Unremarkable. No hydronephrosis. No solid mass. VASCULATURE: Unremarkable. No aortic aneurysm. Atherosclerotic calcification and mural plaque present. Findings are seen throughout the aorta which is non aneurysmal. BOWEL: Diverticulosis without an acute inflammatory component or other associated pathologic process. Large and stable Bochdalek's hernia containing stomach and fat. APPENDIX: Normal appendix. PERITONEUM: Small fluid collection all left inguinal canal, external iliac region. This represents a stable finding. No free fluid. No free air. LYMPH NODES: Unremarkable. No enlarged lymph nodes. BLADDER: Unremarkable. REPRODUCTIVE: Unremarkable. BONES: No acute fracture. Stable compression deformity T12 vertebral body. Scoliosis, secondary degenerative change at multiple levels. OTHER FINDINGS: Fat containing periumbilical hernia. IMPRESSION: No acute or significant findings related to/ accounting for the clinical presentation. Additional benign and/or incidental findings described above. No significant interval change compared to the prior examination(s). ..................... pt aware of Ct results. pt feels improved, no complaints. stable for dc and outpt follow up. Scribe Attestation: Documented by Taylor Kay, acting as a scribe for Marnie Hollis MD. Provider Scribe Attestation: All medical record entries made by the Scribe were at my direction and personally dictated by me. I have reviewed the chart and agree that the record accurately reflects my personal performance of the history, physical exam, medical decision making, and the department course for this patient. I have also personally directed, reviewed, and agree with the discharge instructions and disposition. Disposition - Clinical Impression Clinical Impression: Abdominal cramps, Hernia - Patient ED Disposition Is Patient to be Admitted: No Counseled Patient/Family Regarding: Studies Performed, Diagnosis, Need For Followup - Disposition Referrals: [facility] [Outside] Alfonso Nicole MD [Staff Provider] - Bobby Maguire MD [Staff Provider] - Disposition: Routine/Home Disposition Time: 23:50 Condition: IMPROVED Additional Instructions: follow up with your doctor and follow up with surgery and GI specialist this we ek return to the ED with any worsening or concerning symptoms Instructions: Stomach Ache and Stomach Upset Forms: [employer] (Montenegrin), [employer] (Swazi) Print Language: MALAWIAN
[2018-08-10] MEDS ORDERED: Iohexol 240 (50 ml) ONE (22:03)
[2018-08-10 22:31] LABS: ALB/GLOB RATIO 1.2 (1.0-2.1); ALBUMIN 3.7 g/dL (3.5-5.0); ALT/SGPT 37 U/L (9-52); AST/SGOT 25 U/L (14-36); BLOOD UREA NITROGEN 16 mg/dl (7-17); CALCIUM 9.8 mg/dL (8.4-10.2); GFR NON-AFRICAN AMERICAN > 60
[2018-08-10 22:39] LABS: BASO % 0.3 % (0.0-2.0); EOS # 0.1 K/uL (0.0-0.7); EOS % 2.1 % (0.0-4.0); HEMOGLOBIN 11.7 g/dL (12.0-16.0); LYMPH # 1.7 K/uL (1.0-4.3); LYMPH % 26.1 % (20.0-40.0); MEAN CELL VOLUME 85.8 fl (81.0-99.0); MEAN CORPUSCULAR HEMOGLOBIN 27.7 pg (27.0-31.0); MEAN CORPUSCULAR HGB CONC 32.2 g/dL (33.0-37.0); MEAN PLATELET VOLUME 8.7 fl (7.2-11.7); MONO # 0.5 K/uL (0.0-0.8); MONO % 7.2 % (0.0-10.0); NEUT # 4.3 K/uL (1.8-7.0); NEUT % 64.3 % (50.0-75.0); NRBC % 0.1 % (0.0-0.0); RBC 4.25 Mil/uL (3.80-5.20); RED CELL DISTRIBUTION WIDTH 14.8 % (11.5-14.5); WHITE BLOOD COUNT 6.6 K/uL (4.8-10.8)
[2018-08-10 23:48] LABS: SQUAMOUS EPITHIAL 1 /hpf (0-5); URINE BILIRUBIN NEGATIVE (NEGATIVE); URINE BLOOD MODERATE (NEGATIVE); URINE CLARITY CLEAR (Clear); URINE COLOR YELLOW (YELLOW); URINE GLUCOSE (UA) NEG (NEGATIVE); URINE LEUKOCYTE ESTERASE NEG Leu/uL (Negative); URINE PROTEIN NEGATIVE (NEGATIVE); URINE UROBILINOGEN 0.2-1.0 mg/dL (0.2-1.0)
[2018-08-10] MEDS ORDERED: Iohexol 300 100 ML IJ ONE (23:53)
[2018-08-10] MEDS ORDERED: Sodium Chloride 0.9% 50 ML IV ONE (23:54)
[2018-08-11 06:35] VITALS: O2SAT 99
[2018-08-11 12:31] VITALS: TEMP 98.1
[2018-08-11 12:32] VITALS: BP 134/74; PULSE 74; RESP 18
--- NOTE | 2018-08-11 13:46 | CT ---
Date of service: 08/10/2018 PROCEDURE: CT Abdomen and Pelvis with contrast HISTORY: Unspecified abdominal pain. COMPARISON: 03/15/2018. CT abdomen and pelvis TECHNIQUE: Intravenous contrast dose: 95 cc Omnipaque 300. Radiation dose: Total exam DLP = <inf_radiation_dlp> mGy-cm. This CT exam was performed using one or more of the following dose reduction techniques: Automated exposure control, adjustment of the mA and/or kV according to patient size, and/or use of iterative reconstruction technique. FINDINGS: LOWER THORAX: Unremarkable. LIVER: Unremarkable. No gross lesion or ductal dilatation. GALLBLADDER AND BILE DUCTS: Status post cholecystectomy. No abnormality is seen in the gallbladder fossa. PANCREAS: Unremarkable. No gross lesion or ductal dilatation. SPLEEN: Unremarkable. ADRENALS: Unremarkable. No mass. KIDNEYS AND URETERS: Unremarkable. No hydronephrosis. No solid mass. VASCULATURE: Unremarkable. No aortic aneurysm. Atherosclerotic calcification and mural plaque present. Findings are seen throughout the aorta which is non aneurysmal. BOWEL: Diverticulosis without an acute inflammatory component or other associated pathologic process. Large and stable Bochdalek's hernia containing stomach and fat. APPENDIX: Normal appendix. PERITONEUM: Small fluid collection all left inguinal canal, external iliac region. This represents a stable finding. No free fluid. No free air. LYMPH NODES: Unremarkable. No enlarged lymph nodes. BLADDER: Unremarkable. REPRODUCTIVE: Unremarkable. BONES: No acute fracture. Stable compression deformity T12 vertebral body. Scoliosis, secondary degenerative change at multiple levels. OTHER FINDINGS: Fat containing periumbilical hernia. IMPRESSION: No acute or significant findings related to/ accounting for the clinical presentation. Additional benign and/or incidental findings described above. No significant interval change compared to the prior examination(s).
== END 2018-08-11 10:50 | disposition home or self-care (01) ==
LOC: H.ER 21:00
DX: R10.9 Unspecified abdominal pain (principal); I10 Essential (primary) hypertension; M06.9 Rheumatoid arthritis, unspecified; F03.90 Unspecified dementia, unspecified severity, without behavioral disturbance, psychotic disturbance, mood disturbance, and anxiety; M81.0 Age-related osteoporosis without current pathological fracture
CPT/HCPCS: 74177; 80053; 81003; 85025; 87040; 87086; 96360; 99284; J2270; J7030; Q9966; Q9967

== ENCOUNTER 2018-08-27 13:54 | Emergency (ER) | payer MEDICARE, OTHER ==
[2018-08-27 13:54] VITALS: BMI 31.6
[2018-08-27 13:59] VITALS: RESP 18; TEMP 98.8; O2SAT 98
[2018-08-27] MEDS ORDERED: Sodium Chloride 0.9% 1,000 ML IV SCH (15:00)
--- NOTE | 2018-08-27 15:44 | ED PDOC ---
HPI: Abdomen <Lissy Wilson - Last Filed: 08/27/18 18:29> Chief Complaint (Provider): Abdominal Pain History Per: Patient History/Exam Limitations: no limitations Onset/Duration Of Symptoms: Days Current Symptoms Are (Timing): Still Present Location Of Pain/Discomfort: Epigastric, Periumbilical (pt. c/o abdominal pain times two weeks. Denies fevers/chills/sob/chest pain/nausea/vomiting or diarrhea.) Additional Complaint(s): 77 y/o female presents to the ED for evaluation of abdominal pain, on and off for the past two weeks. Patient describes pain at sharp but comes and goes. Patient notes pain radiates around the abdomen. Patient states pain was a 8/10 today thus prompting today's visit. Otherwise, patient denies taking any medications for symptom relief, fever, chills, nausea, vomiting, diarrhea, melena, urinary changes, hematochezia and recent travel. Of note, patient reports of presents to the ED two weeks ago when she had a negative workup. Patient states she at lunch today at 12 PM. Patient additionally notes of having normal urinary output and normal bowel movements. PMD: Bobby Breaux <Kiara Viramontes - Last Filed: 08/27/18 19:49> Time Seen by Provider: 08/27/18 14:53 Chief Complaint (Nursing): Abdominal Pain Past Medical History Vital Signs: Last Vital Signs Temp 98.8 F 08/27/18 13:56 Pulse 72 08/27/18 13:56 Resp 18 08/27/18 13:56 BP 162/90 H 08/27/18 13:56 Pulse Ox 98 08/27/18 18:23 <Lissy Wilson - Last Filed: 08/27/18 18:29> Reviewed: Historical Data, Nursing Documentation, Vital Signs Vital Signs: Last Vital Signs Temp 98.8 F 08/27/18 13:56 Pulse 72 08/27/18 13:56 Resp 18 08/27/18 13:56 BP 162/90 H 08/27/18 13:56 Pulse Ox 98 08/27/18 13:56 - Medical History PMH: Anxiety, Arthritis, Dementia, Depression, Fractures (facial & finger fractures), Gastritis, Gall Bladder Disease, HTN, Hypercholesterolemia, Osteoporosis, Rheumatoid Arthritis Denies: Chronic Kidney Disease - Surgical History Surgical History: Cholecystectomy Other surgeries: left inguinal hernia surgery - Family History Family History: States: Unknown Family Hx - Immunization History Hx Tetanus Toxoid Vaccination: No Hx Influenza Vaccination: Yes Hx Pneumococcal Vaccination: No <Kiara Viramontes - Last Filed: 08/27/18 19:49> - Home Medications Home Medications: Ambulatory Orders Medication Instructions Recorded Omeprazole [Prilosec] 20 mg PO DAILY 09/18/15 Zolpidem Tartrate [Ambien] 5 mg PO HS 09/18/15 Aspirin [Ecotrin] 81 mg PO DAILY 11/21/15 Alendronate [Fosamax] 70 mg PO QWK 09/29/16 Citalopram Hydrobromide [Celexa] 20 mg PO DAILY 09/29/16 Potassium Chloride [K-Dur 20 mEq 20 meq PO DAILY 09/29/16 ER Tab] Lisinopril [Zestril] 10 mg PO DAILY 06/10/18 Meloxicam [Mobic] 15 mg PO DAILY 06/10/18 Memantine HCl [Namenda Xr] 14 mg PO DAILY 06/10/18 Travoprost [Travatan Z] 1 drop EACHEYE HS 06/10/18 - Allergies Allergies/Adverse Reactions: Allergies Allergy/AdvReac Type Severity Reaction Status Date / Time No Known Allergies Allergy Verified 08/27/18 13:56 Review of Systems ROS Statement: Except As Marked, All Systems Reviewed And Found Negative Constitutional: Negative for: Fever, Chills Gastrointestinal: Positive for: Abdominal Pain. Negative for: Nausea, Vomiting, Diarrhea, Constipation, Melena, Hematochezia Genitourinary Female: Negative for: Dysuria, Frequency, Hematuria <Kiara Viramontes - Last Filed: 08/27/18 19:49> Physical Exam - Reviewed Nursing Documentation Reviewed: Yes Vital Signs Reviewed: Yes - Physical Exam Appears: Positive for: No Acute Distress Head Exam: Positive for: ATRAUMATIC, NORMOCEPHALIC Skin: Positive for: Normal Color, Warm, Dry Eye Exam: Positive for: Normal appearance, EOMI, PERRL Neck: Positive for: Normal, Painless ROM, Supple Cardiovascular/Chest: Positive for: Regular Rate, Rhythm Respiratory: Positive for: Normal Breath Sounds Gastrointestinal/Abdominal: Positive for: Soft, Tenderness (Umbilical tenderness to palpation) Extremity: Positive for: Normal ROM. Negative for: Deformity Neurological/Psych: Positive for: Awake, Alert, Oriented (x3). Negative for: Motor/Sensory Deficits <Kiara Viramontes - Last Filed: 08/27/18 19:49> - Laboratory Results Result Diagrams: 08/27/18 16:04 08/27/18 16:04 Lab Results: Total Bilirubin 0.4 mg/dl (0.2-1.3) 08/27/18 16:04 AST 29 U/L (14-36) 08/27/18 16:04 ALT 29 U/L (9-52) 08/27/18 16:04 Alkaline Phosphatase 90 U/L (38-126) 08/27/18 16:04 Total Protein 6.6 G/DL (6.3-8.2) 08/27/18 16:04 Albumin 3.6 g/dL (3.5-5.0) 08/27/18 16:04 Globulin 3.0 gm/dL (2.2-3.9) 08/27/18 16:04 Albumin/Globulin Ratio 1.2 (1.0-2.1) 08/27/18 16:04 Amylase 84 U/L (30-110) 08/27/18 16:04 Lipase 73 U/L (23-300) 08/27/18 16:04 <Lissy Wilson - Last Filed: 08/27/18 18:29> - Laboratory Results Result Diagrams: 08/27/18 16:04 08/27/18 16:04 - ECG ECG: Positive for: Interpreted By Pr ECG Rhythm: Positive for: Normal QRS, Sinus Rhythm O2 Sat by Pulse Oximetry: 98 (RA) Pulse Ox Interpretation: Normal - Radiology X-Ray: Read By Radiologist X-Ray Interpretation: No Acute Disease - Other Rad ct abdomen X-Ray: Read By Radiologist X-Ray Interpretation: ct abdomen and pelvis: (+) umbilical hernia - Progress ED Course And Treament: pt. was treated with normal saline one liter. labs and diagnostics reviewed. Repeat abdomen: soft, nt, nd, no hsm, (+)bs times 4. Pt. tolerating po. Pt. will be d/c home with f/u with pmd and surgeon in two days. <Kiara Viramontes - Last Filed: 08/27/18 19:49> Medical Decision Making Medical Decision Making: Time: 1453 Impression: Abdominal Pain Plan: -- Labs -- CT Abd/Pelvis -- CT Abd/Pelvis IV Contrast -- EKG -- Amylase -- CMP -- Lipase -- Magnesium -- Phosphorus -- CBC with Differentials -- CXR Two Views -- Sodium Chloride IV 125 mls/hr Scribe Attestation: Documented by Gt King, acting as a scribe Jeanne Viramontes PA-C. Provider Scribe Attestation: All medical record entries made by the Scribe were at my direction and personally dictated by me. I have reviewed the chart and agree that the record accurately reflects my personal performance of the history, physical exam, medical decision making, and the department course for this patient. I have also personally directed, reviewed, and agree with the discharge instructions and disposition. <Kiara Viramontes - Last Filed: 08/27/18 19:49> Disposition <Lissy Wilson - Last Filed: 08/27/18 18:29> - Patient ED Disposition Is Patient to be Admitted: No Comment: pt. will f/u with pmd and surgeon Dr. Alarcon in two days. Doctor Will See Patient In The: Office - Disposition Disposition: Routine/Home Disposition Time: 19:48 <Kiara Viramontes - Last Filed: 08/27/18 19:49> - Clinical Impression Clinical Impression: Umbilical hernia - Disposition Condition: GOOD Additional Instructions: Return to ed immediately if you develop worsening pain Instructions: Acute Abdomen (Belly Pain), Adult (DC), Abdominal Wall Hernias Print Language: HUNGARIAN
--- NOTE | 2018-08-27 16:11 | RAD ---
Date of service: 08/27/2018 HISTORY: pain COMPARISON: Chest radiograph dated 06/10/2018. TECHNIQUE: Chest PA and lateral views FINDINGS: LUNGS: No active pulmonary disease. PLEURA: No significant pleural effusion identified. No pneumothorax apparent. CARDIOVASCULAR: Aortic atherosclerotic calcifications. Cardiomediastinal silhouette stably enlarged. OSSEOUS STRUCTURES: Stable T12 vertebral compression deformity. Unchanged. VISUALIZED UPPER ABDOMEN: Large hiatal hernia. Right upper quadrant surgical clips. OTHER FINDINGS: None. IMPRESSION: No active disease.
[2018-08-27 16:27] LABS: ALB/GLOB RATIO 1.2 (1.0-2.1); ALBUMIN 3.6 g/dL (3.5-5.0); ALT/SGPT 29 U/L (9-52); AMYLASE 84 U/L (30-110); AST/SGOT 29 U/L (14-36); BLOOD UREA NITROGEN 16 mg/dl (7-17); CALCIUM 9.4 mg/dL (8.4-10.2); GFR NON-AFRICAN AMERICAN > 60; LIPASE 73 U/L (23-300)
[2018-08-27 16:34] LABS: BASO % 0.4 % (0.0-2.0); EOS # 0.1 K/uL (0.0-0.7); EOS % 1.9 % (0.0-4.0); HEMOGLOBIN 11.7 g/dL (12.0-16.0); LYMPH # 2.5 K/uL (1.0-4.3); LYMPH % 35.3 % (20.0-40.0); MEAN CELL VOLUME 84.6 fl (81.0-99.0); MEAN CORPUSCULAR HEMOGLOBIN 28.1 pg (27.0-31.0); MEAN CORPUSCULAR HGB CONC 33.2 g/dL (33.0-37.0); MEAN PLATELET VOLUME 8.4 fl (7.2-11.7); MONO # 0.5 K/uL (0.0-0.8); MONO % 7.7 % (0.0-10.0); NEUT # 3.9 K/uL (1.8-7.0); NEUT % 54.7 % (50.0-75.0); RBC 4.17 Mil/uL (3.80-5.20); WHITE BLOOD COUNT 7.1 K/uL (4.8-10.8)
[2018-08-27] MEDS ORDERED: Sodium Chloride 0.9% 50 ML IV ONE (16:57)
[2018-08-27] MEDS ORDERED: Iohexol 300 100 ML IJ ONE (16:57)
--- NOTE | 2018-08-27 17:58 | CT ---
Date of service: 08/27/2018 PROCEDURE: CT Abdomen and Pelvis with contrast HISTORY: abdominal pain COMPARISON: CT scan of the abdomen and pelvis dated 08/11/2018 TECHNIQUE: Contrast dose: 95 mL Omnipaque 300 Radiation dose: Total exam DLP = 745.88 mGy-cm. This CT exam was performed using one or more of the following dose reduction techniques: Automated exposure control, adjustment of the mA and/or kV according to patient size, and/or use of iterative reconstruction technique. FINDINGS: LOWER THORAX: Unremarkable. LIVER: Unremarkable. No gross lesion or ductal dilatation. GALLBLADDER AND BILE DUCTS: Prior cholecystectomy with surgical clips in place. Expected prominence of the CBD. PANCREAS: Unremarkable. No gross lesion or ductal dilatation. SPLEEN: Unremarkable. ADRENALS: Unremarkable. No mass. KIDNEYS AND URETERS: Unremarkable. No hydronephrosis. No solid mass. VASCULATURE: Unremarkable. No aortic aneurysm. Aortic atherosclerotic calcification and mural plaque present. BOWEL: Large hiatal hernia with intrathoracic stomach. No obstruction. Colonic diverticulosis. No gross mural thickening. APPENDIX: No findings to suggest acute appendicitis. PERITONEUM: Small nonobstructive bowel containing umbilical hernia. Small lymphocele near the origin of the left inguinal canal. No free fluid. No free air. LYMPH NODES: Unremarkable. No enlarged lymph nodes. BLADDER: Unremarkable. REPRODUCTIVE: Unremarkable. BONES: Stable T12 vertebral compression fracture. No acute fracture. OTHER FINDINGS: None. IMPRESSION: No acute abdominal pelvic pathology. Small nonobstructive bowel containing umbilical hernia. Additional stable findings as above.
[2018-08-27 18:58] VITALS: BP 150/89; PULSE 70
--- NOTE | 2018-08-28 21:24 | CARD ---
APPROVED REPORT Date of service: 08/27/2018 EKG Measurement Heart [id number] DC [id number] <Conclusion> Normal sinus rhythm Normal ECG
== END 2018-08-27 18:40 | disposition home or self-care (01) ==
LOC: H.ER 13:54
DX: K42.9 Umbilical hernia without obstruction or gangrene (principal); F03.90 Unspecified dementia, unspecified severity, without behavioral disturbance, psychotic disturbance, mood disturbance, and anxiety; Z86.59 Personal history of other mental and behavioral disorders; I10 Essential (primary) hypertension; M06.9 Rheumatoid arthritis, unspecified
CPT/HCPCS: 71046; 74177; 80053; 82150; 83690; 83735; 84100; 85025; 93005; 99283; J7030; Q9967

== ENCOUNTER 2018-09-10 20:47 | Emergency (ER) | payer MEDICARE, OTHER ==
[2018-09-10 20:50] VITALS: BMI 31.8
[2018-09-10 20:51] VITALS: O2SAT 99
--- NOTE | 2018-09-10 21:47 | ED PDOC ---
HPI: Abdomen Time Seen by Provider: 09/10/18 21:13 Chief Complaint (Nursing): Abdominal Pain Chief Complaint (Provider): Abdominal Pain History Per: Patient History/Exam Limitations: no limitations Onset/Duration Of Symptoms: Hrs (SENIOR GEOLOGIST) Current Symptoms Are (Timing): Better Context: Other (hernia) Quality Of Discomfort: "Pain" Associated Symptoms: denies: Nausea, Vomiting, Diarrhea, Constipation Additional Complaint(s): 77 year old female with a previously diagnosed hernia presents to the ED with right sided abdominal pain. While walking today, pain became severe sharp pain causing her to double over, prompting her to come to ED. She states he has not had her hernia surgically fixed. Since being brought in by ambulance, symptoms have improved. She denies any associated nausea, vomiting, diarrhea or constipation. PMD: Bobby Breaux Past Medical History Reviewed: Historical Data, Nursing Documentation, Vital Signs Vital Signs: Last Vital Signs Temp 99.1 F 09/10/18 21:00 Pulse 69 09/10/18 21:00 Resp 14 09/10/18 21:00 BP 163/101 H 09/10/18 21:00 Pulse Ox 99 09/10/18 21:00 - Medical History PMH: Anxiety, Arthritis, Dementia, Depression, Fractures (facial & finger fractures), Gastritis, Gall Bladder Disease, HTN, Hypercholesterolemia, Osteoporosis, Rheumatoid Arthritis Denies: Chronic Kidney Disease - Surgical History Surgical History: Cholecystectomy - Family History Family History: States: Unknown Family Hx - Immunization History Hx Tetanus Toxoid Vaccination: No Hx Influenza Vaccination: Yes Hx Pneumococcal Vaccination: No - Home Medications Home Medications: Ambulatory Orders Medication Instructions Recorded Omeprazole [Prilosec] 20 mg PO DAILY 09/18/15 Zolpidem Tartrate [Ambien] 5 mg PO HS 09/18/15 Aspirin [Ecotrin] 81 mg PO DAILY 11/21/15 Alendronate [Fosamax] 70 mg PO QWK 09/29/16 Citalopram Hydrobromide [Celexa] 20 mg PO DAILY 09/29/16 Potassium Chloride [K-Dur 20 mEq 20 meq PO DAILY 09/29/16 ER Tab] Lisinopril [Zestril] 10 mg PO DAILY 06/10/18 Meloxicam [Mobic] 15 mg PO DAILY 06/10/18 Memantine HCl [Namenda Xr] 14 mg PO DAILY 06/10/18 Travoprost [Travatan Z] 1 drop EACHEYE HS 06/10/18 - Allergies Allergies/Adverse Reactions: Allergies Allergy/AdvReac Type Severity Reaction Status Date / Time No Known Allergies Allergy Verified 09/10/18 21:00 Review of Systems ROS Statement: Except As Marked, All Systems Reviewed And Found Negative Gastrointestinal: Positive for: Abdominal Pain (right sided), Other (hernia). Negative for: Nausea, Vomiting, Diarrhea, Constipation Physical Exam - Reviewed Nursing Documentation Reviewed: Yes Vital Signs Reviewed: Yes - Physical Exam Appears: Positive for: No Acute Distress Head Exam: Positive for: ATRAUMATIC, NORMOCEPHALIC Skin: Positive for: Normal Color, Warm, Dry Eye Exam: Positive for: Normal appearance, EOMI, PERRL Cardiovascular/Chest: Positive for: Regular Rate, Rhythm. Negative for: Murmur Respiratory: Positive for: Normal Breath Sounds. Negative for: Respiratory Distress Gastrointestinal/Abdominal: Positive for: Hernia (Palpable right sided hernia, soft, easily reducible with mild tenderness to palpation) Extremity: Positive for: Normal ROM (upper and lower) Neurological/Psych: Positive for: Awake, Alert, Oriented (x3) - ECG O2 Sat by Pulse Oximetry: 99 (RA) Pulse Ox Interpretation: Normal Medical Decision Making Medical Decision Making: Time: 2144 --Last CT on August 27 showed nonobstructive bowel containing umbilical hernia with no indication of incarceration. Will order basic labs, do conservative management and mostly discharge patient home with surgical follow-up. 1535 Pt now symptom free and is walking around the ED telling jokes to patients in other rooms. States she wants to go home. She states we can contact her or her daughters if there are abnormalities on labs. Pt given information to follow up with surgical clinic and Dr. Breaux. ScribeAttestation: Documented Paul Lu, acting as a scribe for Nakia Elias MD. Provider ScribeAttestation: All medical record entries made by the Scribe were at my direction and personally dictated by me. I have reviewed the chart and agree that the record accurately reflects my personal performance of the history, physical exam, medical decision making, and the department course for this patient. I have also personally directed, reviewed, and agree with the discharge instructions and disposition. Disposition - Clinical Impression Clinical Impression: Umbilical hernia - Disposition Referrals: Alfonso Nicole MD [Staff Provider] - Bobby Breaux MD [Staff Provider] - Disposition Time: 22:57 Condition: STABLE Additional Instructions: Contact the outpatient surgical clinic for elective surgical repair. Follow up with Dr. Breaux as needed. Return to the emergency department if symptoms worsen. Instructions: Abdominal Hernia (DC), Umbilical Hernia, Adult Forms: [employer] [facility] (Japanese), [facility] [facility] (Italian) Print Language: BHUTANESE
[2018-09-10 23:23] LABS: BASO % 0.3 % (0.0-2.0); EOS # 0.2 K/uL (0.0-0.7); EOS % 2.5 % (0.0-4.0); HEMOGLOBIN 12.9 g/dL (12.0-16.0); LYMPH # 2.9 K/uL (1.0-4.3); LYMPH % 34.7 % (20.0-40.0); MEAN CELL VOLUME 84.7 fl (81.0-99.0); MEAN CORPUSCULAR HEMOGLOBIN 28.1 pg (27.0-31.0); MEAN CORPUSCULAR HGB CONC 33.2 g/dL (33.0-37.0); MEAN PLATELET VOLUME 8.5 fl (7.2-11.7); MONO # 0.6 K/uL (0.0-0.8); MONO % 7.8 % (0.0-10.0); NEUT # 4.5 K/uL (1.8-7.0); NEUT % 54.7 % (50.0-75.0); NRBC % 0.2 % (0.0-0.0); RBC 4.58 Mil/uL (3.80-5.20); RED CELL DISTRIBUTION WIDTH 14.6 % (11.5-14.5); WHITE BLOOD COUNT 8.3 K/uL (4.8-10.8)
[2018-09-10 23:38] LABS: ALB/GLOB RATIO 1.3 (1.0-2.1); ALT/SGPT 28 U/L (9-52); AST/SGOT 26 U/L (14-36); BLOOD UREA NITROGEN 16 mg/dl (7-17); CALCIUM 9.4 mg/dL (8.4-10.2); GFR NON-AFRICAN AMERICAN > 60
[2018-09-10 23:42] VITALS: BP 138/89; PULSE 89; RESP 18; TEMP 98
== END 2018-09-10 23:41 | disposition home or self-care (01) ==
LOC: H.ER 20:47
DX: K42.9 Umbilical hernia without obstruction or gangrene (principal); F03.90 Unspecified dementia, unspecified severity, without behavioral disturbance, psychotic disturbance, mood disturbance, and anxiety; I10 Essential (primary) hypertension; M06.9 Rheumatoid arthritis, unspecified; Z86.59 Personal history of other mental and behavioral disorders

== ENCOUNTER 2018-09-24 22:09 | Emergency (ER) | payer MEDICARE, OTHER ==
[2018-09-24 22:09] VITALS: BMI 31.8
[2018-09-24 22:13] VITALS: O2SAT 98
[2018-09-24 23:01] VITALS: BP 137/77; PULSE 85; RESP 17; TEMP 97.9
--- NOTE | 2018-09-24 23:38 | ED PDOC ---
HPI: Abdomen Time Seen by Provider: 09/24/18 22:17 Chief Complaint (Nursing): Abdominal Pain Chief Complaint (Provider): Abdominal Pain History Per: Patient History/Exam Limitations: no limitations Onset/Duration Of Symptoms: Days Current Symptoms Are (Timing): Still Present Additional Complaint(s): 77 y/o female with a PMHx of abdominal hernia presents to the ED for evaluation of resolved abdominal pain. Patient notes of developing a feeling of severe abdominal pain at 8:30 PM today. Patient notes she did not take any medications to alleviate pain. Patient reports she did not know what to do and thus called EMS. Patient denies any associated nausea, vomiting and diarrhea. Of note, patient reports of having passed bowel movements today but takes laxatives to he lp relieve stool. Patient states she due for surgery next week. Otherwise, patient additionally denies associated fevers, back pain, chest pain and shortness of breath. Patient currently feels no pain and is requesting to go home. PMD: Bobby Breaux. Past Medical History Reviewed: Historical Data, Nursing Documentation, Vital Signs Vital Signs: Last Vital Signs Temp 97.9 F 09/24/18 22:59 Pulse 85 09/24/18 22:59 Resp 17 09/24/18 22:59 BP 137/77 09/24/18 22:59 Pulse Ox 98 09/24/18 22:59 Primary Care Provider: Bobby Breaux - Medical History PMH: Anxiety, Arthritis, Dementia, Depression, Fractures (facial & finger fractures), Gastritis, Gall Bladder Disease, HTN, Hypercholesterolemia, Osteoporosis, Rheumatoid Arthritis Denies: Chronic Kidney Disease - Surgical History Surgical History: Cholecystectomy - Family History Family History: States: Unknown Family Hx - Immunization History Hx Tetanus Toxoid Vaccination: No Hx Influenza Vaccination: Yes Hx Pneumococcal Vaccination: No - Home Medications Home Medications: Ambulatory Orders Medication Instructions Recorded Omeprazole [Prilosec] 20 mg PO DAILY 09/18/15 Zolpidem Tartrate [Ambien] 5 mg PO HS 09/18/15 Aspirin [Ecotrin] 81 mg PO DAILY 11/21/15 Alendronate [Fosamax] 70 mg PO QWK 09/29/16 Citalopram Hydrobromide [Celexa] 20 mg PO DAILY 09/29/16 Potassium Chloride [K-Dur 20 mEq 20 meq PO DAILY 05/16/17 ER Tab] Lisinopril [Zestril] 10 mg PO DAILY 06/10/18 Meloxicam [Mobic] 15 mg PO DAILY 06/10/18 Memantine HCl [Namenda Xr] 14 mg PO DAILY 06/10/18 Travoprost [Travatan Z] 1 drop EACHEYE HS 06/10/18 - Allergies Allergies/Adverse Reactions: Allergies Allergy/AdvReac Type Severity Reaction Status Date / Time No Known Allergies Allergy Verified 09/10/18 21:00 Review of Systems ROS Statement: Except As Marked, All Systems Reviewed And Found Negative Constitutional: Negative for: Fever Cardiovascular: Negative for: Chest Pain Respiratory: Negative for: Shortness of Breath Gastrointestinal: Positive for: Abdominal Pain. Negative for: Nausea, Vomiting, Diarrhea Musculoskeletal: Negative for: Back Pain Physical Exam - Reviewed Nursing Documentation Reviewed: Yes Vital Signs Reviewed: Yes - Physical Exam Appears: Positive for: No Acute Distress Head Exam: Positive for: ATRAUMATIC, NORMOCEPHALIC Skin: Positive for: Normal Color, Warm, Dry Eye Exam: Positive for: Normal appearance, EOMI, PERRL ENT: Positive for: Normal ENT Inspection Neck: Positive for: Normal, Painless ROM Cardiovascular/Chest: Positive for: Regular Rate, Rhythm. Negative for: Murmur Respiratory: Positive for: Normal Breath Sounds. Negative for: Respiratory Distress Gastrointestinal/Abdominal: Positive for: Soft, Hernia (abdominal wall hernia palpated. Easily reducible, small in size. ). Negative for: Tenderness Back: Positive for: Normal Inspection. Negative for: L CVA Tenderness, R CVA Tenderness, Vertebral Tenderness Extremity: Positive for: Normal ROM. Negative for: Pedal Edema, Deformity Neurological/Psych: Positive for: Awake, Alert, Oriented. Negative for: Motor/Sensory Deficits - ECG O2 Sat by Pulse Oximetry: 98 (RA) Pulse Ox Interpretation: Normal Medical Decision Making Medical Decision Making: Time: 2304 A/P: 77 y/o female presenting with resolved abdominal pain due to hernia. -- Patient is tolerating PO in the ED. -- Not concerned for obstruction or strangulation -- Will provide patient with instructions for outpatient follow up. Scribe Attestation: Documented by Gt King, acting as a scribe Dejon Cleveland MD. Provider Scribe Attestation: All medical record entries made by the Scribe were at my direction and personally dictated by me. I have reviewed the chart and agree that the record accurately reflects my personal performance of the history, physical exam, medical decision making, and the department course for this patient. I have also personally directed, reviewed, and agree with the discharge instructions and disposition. Disposition - Clinical Impression Clinical Impression: Hernia - Patient ED Disposition Is Patient to be Admitted: No Counseled Patient/Family Regarding: Need For Followup - Disposition Referrals: Bobby Breaux MD [Family Provider] - Disposition: Routine/Home Disposition Time: 23:04 Condition: GOOD Instructions: Abdominal Wall Hernias Forms: [facility] ([place])
== END 2018-09-24 23:04 | disposition home or self-care (01) ==
LOC: H.ER 22:09
DX: K46.9 Unspecified abdominal hernia without obstruction or gangrene (principal); E78.00 Pure hypercholesterolemia, unspecified; I10 Essential (primary) hypertension; F03.90 Unspecified dementia, unspecified severity, without behavioral disturbance, psychotic disturbance, mood disturbance, and anxiety

== ENCOUNTER 2018-10-07 20:35 | Emergency (ER) | payer MEDICARE, OTHER ==
[2018-10-07 20:42] VITALS: BMI 32.2
[2018-10-07 20:44] VITALS: RESP 18
--- NOTE | 2018-10-07 21:34 | ED PDOC ---
HPI: Abdomen Time Seen by Provider: 10/07/18 20:44 Chief Complaint (Nursing): Abdominal Pain Chief Complaint (Provider): Abdominal Pain History Per: Patient History/Exam Limitations: no limitations Onset/Duration Of Symptoms: Days (today) Current Symptoms Are (Timing): Better Quality Of Discomfort: "Pain" Associated Symptoms: denies: Nausea, Vomiting, Diarrhea, Constipation Additional Complaint(s): 77 year old female with a history of abdominal hernia presents with the ED with abdominal pain that comes and goes onset today. Patient states pain feels like her typical hernia pain. She did not take any medications prior to arrival to alleviate the pain. Patient denies nausea, vomiting, diarrhea, or constipation. Currently, pain is less than before. PMD: Bobby Breaux Past Medical History Reviewed: Historical Data, Nursing Documentation, Vital Signs Vital Signs: Last Vital Signs Temp 98.8 F 10/07/18 20:41 Pulse 78 10/07/18 20:41 Resp 18 10/07/18 20:41 BP 99/54 L 10/07/18 20:41 Pulse Ox 98 10/07/18 20:41 Primary Care Provider: Bobby Breaux - Medical History PMH: Anxiety, Arthritis, Dementia, Depression, Fractures (facial & finger fractures), Gastritis, Gall Bladder Disease, HTN, Hypercholesterolemia, Osteoporosis, Rheumatoid Arthritis Denies: Chronic Kidney Disease Other PMH: abdominal hernia - Surgical History Surgical History: Cholecystectomy - Family History Family History: States: Unknown Family Hx - Immunization History Hx Tetanus Toxoid Vaccination: No Hx Influenza Vaccination: Yes Hx Pneumococcal Vaccination: No - Home Medications Home Medications: Ambulatory Orders Medication Instructions Recorded Omeprazole [Prilosec] 20 mg PO DAILY 09/18/15 Zolpidem Tartrate [Ambien] 5 mg PO HS 09/18/15 Aspirin [Ecotrin] 81 mg PO DAILY 11/21/15 Alendronate [Fosamax] 70 mg PO QWK 09/29/16 Citalopram Hydrobromide [Celexa] 20 mg PO DAILY 09/29/16 Potassium Chloride [K-Dur 20 mEq 20 meq PO DAILY 09/29/16 ER Tab] Lisinopril [Zestril] 10 mg PO DAILY 06/10/18 Meloxicam [Mobic] 15 mg PO DAILY 06/10/18 Memantine HCl [Namenda Xr] 14 mg PO DAILY 06/10/18 Travoprost [Travatan Z] 1 drop EACHEYE HS 06/10/18 Ibuprofen [Motrin Tab] 600 mg PO Q6 #30 tab 10/07/18 - Allergies Allergies/Adverse Reactions: Allergies Allergy/AdvReac Type Severity Reaction Status Date / Time No Known Allergies Allergy Verified 10/07/18 20:41 Review of Systems ROS Statement: Except As Marked, All Systems Reviewed And Found Negative Gastrointestinal: Positive for: Abdominal Pain. Negative for: Nausea, Vomiting, Diarrhea, Constipation Physical Exam - Reviewed Nursing Documentation Reviewed: Yes Vital Signs Reviewed: Yes - Physical Exam Appears: Positive for: Non-toxic, No Acute Distress Head Exam: Positive for: ATRAUMATIC, NORMOCEPHALIC Skin: Positive for: Normal Color, Warm, Dry Eye Exam: Positive for: EOMI, Normal appearance, PERRL Cardiovascular/Chest: Positive for: Regular Rate, Rhythm. Negative for: Murmur Respiratory: Positive for: Normal Breath Sounds. Negative for: Respiratory Distress Gastrointestinal/Abdominal: Positive for: Soft, Hernia (easily reducible periumbilical hernia). Negative for: Distended - ECG O2 Sat by Pulse Oximetry: 98 (RA) Pulse Ox Interpretation: Normal Medical Decision Making Medical Decision Making: Time: 2050 Impression: Umbilical hernia, without signs of strangulation and incarceration. Hernia was reduced. Motrin and ice pack will be given. Patient will be observed in ED. No further symptoms. Orders: --Motrin 600 mg PO --Ice 2229 --Patient states she's feeling much better --Advised followup with PMD --Ibuprofen prescription provided --Very well appearing upon discharge Scribe Attestation: Documented by Carli Lu, acting as a scribe for Misbah Cleveland MD. Provider Scribe Attestation: All medical record entries made by the Scribe were at my direction and personally dictated by me. I have reviewed the chart and agree that the record accurately reflects my personal performance of the history, physical exam, medical decision making, and the department course for this patient. I have also personally directed, reviewed, and agree with the discharge instructions and disposition. Disposition - Clinical Impression Clinical Impression: Hernia - Patient ED Disposition Is Patient to be Admitted: No Counseled Patient/Family Regarding: Diagnosis, Need For Followup, Rx Given - Disposition Referrals: Bobby Breaux MD [Family Provider] - Disposition: Routine/Home Disposition Time: 22:30 Condition: IMPROVED Prescriptions: Ibuprofen [Motrin Tab] 600 mg PO Q6 #30 tab Instructions: Abdominal Wall Hernias Forms: [facility] (Mauritanian) Print Language: SYRIAN
[2018-10-07 23:01] VITALS: BP 153/89; PULSE 82; TEMP 98.4; O2SAT 100
== END 2018-10-07 22:58 | disposition home or self-care (01) ==
LOC: H.ER 20:35
DX: K42.9 Umbilical hernia without obstruction or gangrene (principal); F03.90 Unspecified dementia, unspecified severity, without behavioral disturbance, psychotic disturbance, mood disturbance, and anxiety